=== PATIENT | male | born 1950 | race Caucasian/White ===

== ENCOUNTER 2019-07-15 14:58 | Inpatient (IN) | payer MEDICARE, MEDICAID, SELFPAY ==
[2019-07-15] VITALS (7 sets, daily range): BP systolic 103–175; BP diastolic 56–90; PULSE 46–53; RESP 16–20; TEMP 36.1–36.4; O2SAT 98–99; BMI 25.7
--- NOTE | 2019-07-15 15:02 | XR_ITS ---
WS: [id number] PORTABLE CHEST HISTORY: cough COMPARISON: 01/21/2019 Status post CABG. Hyperexpanded lungs from emphysema. No pneumonia. No pleural effusion or pneumothorax. Cardiac size: Mildly enlarged cardiac silhouette. Mediastinum/Aorta: Mild atherosclerosis aorta. No osseous abnormality seen. XR/XR chest 1V portable [id number] IMPRESSION: Prior CABG and emphysema. No pneumonia.
--- NOTE | 2019-07-15 15:02 | ECG_ITS ---
Measurements Intervals [place] Rate: 51 P: 57 VT: 270 QRS: 27 QRSD: 99 T: 25 QT: 504 QTc: 466 SINUS BRADYCARDIA WITH FIRST DEGREE AV BLOCK PROLONGED QT INTERVAL Compared to ECG 01/21/2019 06:23:43 First degree AV block now present Prolonged QT interval now present Sinus rhythm no longer present T-wave abnormality no longer present Electronically Signed On 07-15-2019 19:45:15 CDT by Mark Jade M.D. [email or web address]
[2019-07-15] MEDS: sodium chloride 0.9% 1,000 ML 100 ML IV ×2 (15:08→17:25)
[2019-07-15 15:13] LABS: Basophils # 0.1 10^3/uL (0.0-0.1); Basophils % 0.8 %; Eosinophils # 0.1 10^3/uL (0.0-0.8); Eosinophils % 0.9 %; Hematocrit 35.4 % (42.0-52.0); Hemoglobin 12.1 g/dL (11.7-16.6); Lymphocytes # 1.3 10^3/uL (0.8-4.8); Lymphocytes % 20.2 %; Mean Corpuscular HGB Conc 34.2 g/dL (30.0-36.0); Mean Corpuscular Hemoglobin 28.9 pg (28.0-34.0); Mean Corpuscular Volume 84.5 fL (80-94); Mean Platelet Volume 8.6 fL (7.4-10.4); Monocytes # 0.5 10^3/uL (0.2-0.9); Monocytes % 8.3 %; Neutrophils # 4.5 10^3/uL (1.8-7.7); Neutrophils % 68.6 %; Nucleated Red Blood Cells % 0 %; Platelet Count 211 10^3/cmm (130-400); Red Blood Count 4.19 10^6/uL (4.1-5.3); Red Cell Distribution Width 16.7 % (12.1-15.1); White Blood Count 6.5 10^3/uL (4.0-10.0)
[2019-07-15] MEDS: aspirin 325 mg Tablet PO (15:13)
--- NOTE | 2019-07-15 15:14 | W.ED.CHESTPA ---
HPI - Chest Pain General: Chief Complaint: Chest Pain Stated Complaint: CP Time Seen by Provider: 07/15/19 15:02 History of Present Illness: HPI narrative: Rudolph is a nice 68-year-old male who comes in complaining of chest pain. The patient is very hard of hearing and is not put much effort into answering questions and is deemed a poor historian. He states he had chest pain that began after midnight last night and it is unclear but it sounds as though it may have been constant throughout the night. At an unknown time it resolved and then recurred again at 2 PM. He states the pain is back across his shoulders. He denies any radiation or diaphoresis. He does feel short of breath with this. Patient was recently placed on antibiotics for chest congestion but he is uncertain if he has had a fever. Associated symptoms: Reports dyspnea; Deny abdominal pain, diaphoresis, fever(s), nausea, palpitations, syncope or vomiting Review of Systems General: Reports: other (negative unless marked) Const: Denies: fever, chills, body aches, fatigue, malaise or diaphoresis Eyes: Denies: change in vision or blurry vision ENMT: Denies: throat pain, painful swallowing, hoarseness, ear pain, ear discharge, Change in hearing or nasal discharge Card: Reports: chest pain; Denies: palpitations, irregular heart rhythm, syncope, pre-syncope, shortness of breath on exertion or shortness of breath when lying down Resp: Reports: shortness of breath; Denies: productive cough, non-productive cough, wheezing, coughing up blood or chest congestion GI: Denies: abdominal pain, nausea, vomiting, vomiting blood, coffee grounds in vomit, diarrhea, constipation, cramping, blood in stool or black tarry stool : Denies: flank pain, difficulty urinating, painful urination, urinary frequency, urinary urgency, decreased urine ouput, urinary incontinence or blood in urine Musc: Denies: neck pain, back pain, extremity pain, extremity swelling, joint pain, joint swelling, joint warmth or joint stiffness Skin/Breast: Denies: rash, skin tenderness or yellow skin Neuro: Denies: headache, numbness in extremities, weakness in extremities, changes in sensation, lack of coordination, difficulty walking, dizziness, vertigo or confusion Endo: Denies: excessive thirst, tired all the time, cold intolerance, excessive sweating, flushing or hot flashes Priyank/Lymph: Denies: easy bruising, easy bleeding, petechiae or enlarged lymph nodes All/Imm: Denies: hives, throat swelling, tongue swelling, facial swelling or acute wheezing PFSH ED PFSH: Medical History (Updated 07/15/19 @ 16:54 by Maty Bragg) Alcohol abuse ASHD (arteriosclerotic heart disease) Chronic hyponatremia CKD (chronic kidney disease) stage 3, GFR 30-59 ml/min COPD (chronic obstructive pulmonary disease) Essential hypertension GERD (gastroesophageal reflux disease) Hyperlipidemia Microcytic anemia Peripheral vascular disease Tobacco abuse Surgical History S/P CABG (coronary artery bypass graft) S/P cardiac catheterization S/P tonsillectomy Status post below knee amputation of right lower extremity Family History Mother Hypertension CAD (coronary artery disease) Social History Smoking and tobacco status: current every day smoker Physical Exam Const: COMMON NORMALS: no apparent distress, oriented x3, no limitations, healthy appearing and well nourished EXAM LIMITATIONS: no altered mental status GENERAL APPEARANCE: cooperative, well kempt and well developed ORIENTATION/CONSCIOUSNESS: Yes awake HENMT: COMMON NORMALS: normocephalic, head/scalp atraumatic, hearing grossly normal bilaterally, external ears normal, EAC's normal, external nose normal and moist oral mucous membranes HEAD & SCALP: normal to inspection, normocephalic and atraumatic FACE & SINUS: normal facial exam and face symmetric NOSE: external nose normal and nares normal EXTERNAL EAR: Yes external ears normal EXTERNAL AUDITORY CANAL: EAC's normal MOUTH: oral and palatal mucosa normal and tongue normal Eye: COMMON NORMALS: PERRL, EOMs intact bilaterally, conjunctivae normal and no scleral icterus GENERAL EYE: normal appearance of both eyes and normal light reflex CONJUNCTIVA: Yes conjunctivae normal SCLERA: sclerae normal CORNEA: Yes corneas normal PUPIL: Yes PERRL DIRECT OPHTHALMOSCOPY: Yes normal light reflex Neck/C-Spine: COMMON NORMALS: full ROM, no lymphadenopathy, supple, no meningeal signs and no JVD GENERAL: Yes normal visual inspection and Yes trachea midline CERVICAL SPINE: Yes cervical ROM normal Chest: COMMONS NORMALS: inspection of chest normal and palpation of chest normal Resp: COMMON NORMALS: normal respiratory effort, no retractions and no use of accessory muscles EFFORT & INSPECTION: Yes able to speak in complete sentences AUSCULTATION: rales Cardio: COMMON NORMALS: no JVD, regular rhythm, S1 normal heart sound, S2 normal heart sound, no gallops, no clicks, no murmurs and no rub JUGULAR VENOUS DISTENTION: no JVD RATE: bradycardic RHYTHM: regular rhythm HEART SOUNDS: S1 normal and S2 normal GI: COMMON NORMALS: soft to palpation, non-tender, no hepatosplenomegaly and no masses INSPECTION: Yes normal to inspection PALPATION: Yes soft and Yes no hepatosplenomegaly : COMMON NORMALS: Yes no CVA tenderness BLADDER/KIDNEY EXAM: Yes no CVA tenderness Back/Pelvis: COMMON NORMALS: no CVA tenderness, thoracic and lumbar spine normal to inspection, no thoracic nor lumbar tenderness and thoraco-lumbar ROM normal Extremity: COMMON NORMALS: normal to inspection, full ROM, normal capillary refill, no joint enlargement, no clubbing, cyanosis or edema and no calf tenderness Neuro: COMMON NORMALS: oriented x3, CN's II-XII intact bilaterally, moves all extremities, no focal motor deficits and no sensory deficits noted MENINGEAL SIGNS: Yes no meningeal signs Psych: COMMON NORMALS: mental status grossly normal, thought process normal, cooperative, affect normal, speech normal and activity/motor behavior normal APPEARANCE: Yes well kempt SPEECH: Yes normal speech THOUGHT PROCESS: normal thought process Skin: COMMON NORMALS: no rashes or lesions noted, skin turgor normal, no jaundice, no petechiae and no mottling GENERAL SKIN EXAM: no rashes or lesions noted and turgor normal Course Vital Signs: Vital signs: Vital Signs Temperature 97.6 F 07/15/19 15:00 Pulse Rate 48 L 07/15/19 16:11 Respiratory Rate 18 07/15/19 16:11 Blood Pressure 129/65 07/15/19 16:11 Pulse Oximetry 99 07/15/19 16:11 MDM - Chest Pain MDM Narrative: Medical decision making narrative: Patient is no longer having chest pain now but he is hyponatremic and still bradycardic. His blood pressure has been stable. The bradycardia could be caused by the combination of beta-erbekah and amiodarone. The patient does not look volume overloaded to a great extent so the hyponatremia will need to be worked up further. I have reviewed the case in full with Dr. Galvez and he agrees to come and admit the patient. Lab Data: Attestation: I reviewed the patient's lab results. Labs: Lab Results 07/15/19 07/15/19 07/15/19 Range/Units 15:04 15:04 15:04 WBC 6.5 (4.0-10.0) 10^3/ uL RBC 4.19 (4.1-5.3) 10^6/u L Hgb 12.1 (11.7-16.6) g/dL Hct 35.4 L (42.0-52.0) % MCV 84.5 (80-94) fL MCH 28.9 (28.0-34.0) pg MCHC 34.2 (30.0-36.0) g/dL RDW 16.7 H (12.1-15.1) % Plt Count 211 (130-400) 10^3/c mm MPV 8.6 (7.4-10.4) fL Neut % (Auto) 68.6 % Lymph % (Auto) 20.2 % [place] % (Auto) 8.3 % Eos % (Auto) 0.9 % Baso % (Auto) 0.8 % Neut # (Auto) 4.5 (1.8-7.7) 10^3/u L Lymph # (Auto) 1.3 (0.8-4.8) 10^3/u L [place] # (Auto) 0.5 (0.2-0.9) 10^3/u L Eos # (Auto) 0.1 (0.0-0.8) 10^3/u L Baso # (Auto) 0.1 (0.0-0.1) 10^3/u L Nucleated RBC % (a uto) 0 % Nucleated RBCs # 0.0 /100WBC Sodium 121 L (136-145) mmol/L Potassium 5.0 (3.5-5.1) mmol/L Chloride 88 L (98-107) mmol/L Carbon Dioxide 24 (22-29) mmol/L Anion Gap 14.0 (5-19) BUN 9 (8-23) mg/dL Creatinine 1.3 H (0.7-1.2) mg/dL GFR Calculation 55.2 L (90-130) mL/min Glucose 92 (65-115) mg/dL Calculated Osmolal ity 248 L (285-295) mOsm/k g Calcium 8.8 (8.5-10.5) mg/dL Magnesium 2.1 (1.7-2.3) mg/dL Total Bilirubin 0.5 (0.15-1.2) mg/dL AST 46 H (0-40) U/L ALT 38 (0-41) U/L Alkaline Phosphata se 125 (40-130) IU/L Troponin T Baselin e 49 H (0-15) ng/mL NT-Pro-B Natriuret Pep (0-125) pg/mL Total Protein 5.7 L (6.6-8.7) g/dL Albumin 3.3 L (3.5-5.2) g/dL Globulin 2.4 (1.3-4.6) g/dL TSH 1.86 (0.27-4.20) uIU/ mL Urine Color (Yellow) Urine Appearance (CLEAR) Urine pH (5-7) Ur Specific Gravit y (1.005-1.030) Urine Protein (Negative) Urine Glucose (UA) (Normal) Urine Ketones (Negative) Urine Blood (Negative) Urine Nitrate (Negative) Urine Bilirubin (NEGATIVE) Urine Urobilinogen (Negative) mg/dL Ur Leukocyte Ольга ase (Negative) Urine RBC (0-2) /hpf Urine WBC (0-5) /hpf Ur Squamous Epith Cells (0-5) Urine Bacteria (NONE) Urine Opiates Scre en (Negative) ng/mL Ur Phencyclidine S crn (Negative) ng/mL Ur Amphetamines Sc reen (Negative) ng/mL U Benzodiazepines Scrn (Negative) ng/mL Urine Cocaine Scre en (Negative) ng/mL U Marijuana (THC) Screen (Negative) ng/mL Ethyl Alcohol < 10 (0-10) mg/dL 07/15/19 07/15/19 07/15/19 Range/Units 15:04 15:08 15:08 WBC (4.0-10.0) 10^3/ uL RBC (4.1-5.3) 10^6/u L Hgb (11.7-16.6) g/dL Hct (42.0-52.0) % MCV (80-94) fL MCH (28.0-34.0) pg MCHC (30.0-36.0) g/dL RDW (12.1-15.1) % Plt Count (130-400) 10^3/c mm MPV (7.4-10.4) fL Neut % (Auto) % Lymph % (Auto) % [place] % (Auto) % Eos % (Auto) % Baso % (Auto) % Neut # (Auto) (1.8-7.7) 10^3/u L Lymph # (Auto) (0.8-4.8) 10^3/u L [place] # (Auto) (0.2-0.9) 10^3/u L Eos # (Auto) (0.0-0.8) 10^3/u L Baso # (Auto) (0.0-0.1) 10^3/u L Nucleated RBC % (a uto) % Nucleated RBCs # /100WBC Sodium (136-145) mmol/L Potassium (3.5-5.1) mmol/L Chloride (98-107) mmol/L Carbon Dioxide (22-29) mmol/L Anion Gap (5-19) BUN (8-23) mg/dL Creatinine (0.7-1.2) mg/dL GFR Calculation (90-130) mL/min Glucose (65-115) mg/dL Calculated Osmolal ity (285-295) mOsm/k g Calcium (8.5-10.5) mg/dL Magnesium (1.7-2.3) mg/dL Total Bilirubin (0.15-1.2) mg/dL AST (0-40) U/L ALT (0-41) U/L Alkaline Phosphata se (40-130) IU/L Troponin T Baselin e (0-15) ng/mL NT-Pro-B Natriuret Pep 1526 H (0-125) pg/mL Total Protein (6.6-8.7) g/dL Albumin (3.5-5.2) g/dL Globulin (1.3-4.6) g/dL TSH (0.27-4.20) uIU/ mL Urine Color Straw (Yellow) Urine Appearance Clear (CLEAR) Urine pH 7 (5-7) Ur Specific Gravit y 1.000 L (1.005-1.030) Urine Protein Neg (Negative) Urine Glucose (UA) Norm (Normal) Urine Ketones Negative (Negative) Urine Blood Neg (Negative) Urine Nitrate Negative (Negative) Urine Bilirubin Neg (NEGATIVE) Urine Urobilinogen Norm (Negative) mg/dL Ur Leukocyte Ольга ase Negative (Negative) Urine RBC None (0-2) /hpf Urine WBC None (0-5) /hpf Ur Squamous Epith Cells None (0-5) Urine Bacteria None (NONE) Urine Opiates Scre en Negative (Negative) ng/mL Ur Phencyclidine S crn Negative (Negative) ng/mL Ur Amphetamines Sc reen Negative (Negative) ng/mL U Benzodiazepines Scrn Negative (Negative) ng/mL Urine Cocaine Scre en Negative (Negative) ng/mL U Marijuana (THC) Screen Negative (Negative) ng/mL Ethyl Alcohol (0-10) mg/dL Imaging Data^: CXR: My impression: Cardiomegaly with possible mild pulmonary vascular congestion EKG Data^: EKG 1: Attestation: I personally reviewed and interpreted this EKG as follows: EKG interpretation date: 07/15/19 EKG interpretation time: 15:13 Interpretation: Normal sinus rhythm at 51 beats a minute, first-degree AV block, prolonged QTC, no acute ST or T wave changes. Discharge Plan Discharge Patient Disposition: Admitted As Inpatient Clinical Impression: Chest pain, Hyponatremia Condition: Stable Prescriptions: No Action metoprolol tartrate 25 mg tablet 12.5 mg PO BID RF: 0 amiodarone 200 mg tablet 200 mg PO BID RF: 0 amlodipine [Norvasc] 5 mg tablet 5 mg PO DAILY RF: 0 aspirin [Adult Low Dose Aspirin] 81 mg tablet,delayed release (DR/EC) 81 mg PO DAILY RF: 0 atorvastatin 10 mg tablet 10 mg PO DAILY RF: 0 carvedilol 6.25 mg tablet 6.25 mg PO BID RF: 0 clopidogrel 75 mg tablet 75 mg PO DAILY RF: 0 isosorbide mononitrate 60 mg tablet extended release 24 hr 60 mg PO QAM RF: 0 furosemide 40 mg tablet 40 mg PO DAILY RF: 0 losartan 100 mg tablet 100 mg PO DAILY RF: 0 nitroglycerin [Nitrostat] 0.4 mg tablet, sublingual 0.4 mg SUBLINGUAL Q5M PRN (Reason: Chest Pain) RF: 0 pantoprazole 40 mg tablet,delayed release (DR/EC) 40 mg PO DAILY RF: 0 potassium chloride [Klor-Con 10] 10 mEq tablet extended release 10 meq PO DAILY RF: 0 valsartan 80 mg tablet 80 mg PO DAILY RF: 0 ferrous sulfate 325 mg (65 mg iron) tablet 325 mg PO DAILY RF: 0 loratadine 10 mg tablet 10 mg PO DAILY RF: 0 magnesium oxide 420 mg tablet 420 mg PO DAILY RF: 0 prednisone 20 mg tablet 20 mg PO DAILY RF: 0 Referrals: Jv Ruiz [Primary Care Provider] - Coding Level of Care Code ED Client Manager Large Law for Chg Fwd Exam Comprehensive
[2019-07-15 15:26] LABS: Bilirubin Urine Neg (NEGATIVE); Blood Urine Neg (Negative); Glucose Urine UA Norm (Normal); Ketones Urine Negative (Negative); Leukocyte Esterase Urine Negative (Negative); Nitrate Urine Negative (Negative); Protein Urine Neg (Negative); Urine Appearance Clear (CLEAR); Urine Color Straw (Yellow); Urobilinogen Urine Norm (Negative); pH Urine 7 (5-7)
[2019-07-15 15:27] LABS: Add Urine Culture? No
[2019-07-15 15:50] LABS: Troponin(5th) Baseline 49 ng/mL (0-15)
[2019-07-15 15:59] LABS: Alanine Aminotransferase 38 U/L (0-41); Albumin Level 3.3 g/dL (3.5-5.2); Alkaline Phosphatase 125 IU/L (40-130); Aspartate Amino Transferase 46 U/L (0-40); Blood Urea Nitrogen 9 mg/dL (8-23); Calcium 8.8 mg/dL (8.5-10.5); Carbon Dioxide 24 mmol/L (22-29); Chloride 88 mmol/L (98-107); Globulin 2.4 g/dL (1.3-4.6); Glomerular Filtration Rate 55.2 mL/min (90-130); Glucose 92 mg/dL (65-115); Magnesium 2.1 mg/dL (1.7-2.3); Osmolality Calculated 248 mOsm/kg (285-295); Sodium 121 mmol/L (136-145); Thyroid Stimulating Hormone 1.86 uIU/mL (0.27-4.20); Total Bilirubin 0.5 mg/dL (0.15-1.2); Total Protein 5.7 g/dL (6.6-8.7)
[2019-07-15 16:08] LABS: Alcohol Level < 10 mg/dL (0-10)
[2019-07-15 16:08] LABS: Amphetamines Screen Urine Negative (Negative); Benzodiazepines Screen Urine Negative (Negative); Cocaine Screen Urine Negative (Negative); Opiate Screen Urine Negative (Negative); PCP Screen Urine Negative (Negative); THC Screen Urine Negative (Negative)
[2019-07-15 16:30] LABS: NT Pro B Type Natriuretic Pept 1526 pg/mL (0-125)
[2019-07-15 17:05] LABS: Barbiturates Screen Urine Negative (Negative)
[2019-07-15 17:18] LABS: Troponin 5 2HR 41.57 ng/mL (0-15)
[2019-07-15 17:27] LABS: Troponin 5 2HR Delta -7.43 ABS# (0-10)
--- NOTE | 2019-07-15 17:31 | P.HP_ITS ---
Providers/Chief Complaint Admitting Physician: Colby Trujillo MD Primary Care Provider: Jv Ruiz Chief Complaint: CP History of Present Illness Rudolph Calhoun is a 68 year old male with a past medical history of CAD status post CABG x1, status post drug-eluting stent to left circumflex, history of atrial fibrillation on amiodarone and aspirin low-dose, peripheral vascular di sease, right BKA, left TMA, chronic smoker, COPD not oxygen dependent, hypertension, hyperlipidemia, GERD, diastolic heart failure, ethanol abuse, chronic hyponatremia baseline sodium is 129, CKD stage III who presents to the emergency room due to complaints of chest pain. Patient states that he lives home by himself, he has a nurse who checks up on him, denies recent fevers, cough, exposure to Covid 19. Patient states that last night he started develop severe substernal chest pain radiating down the left arm, associated shortness of breath, dull achy pain, lasting a few minutes, but returning, associated with exertion, no lightheadedness, no dizziness, patient states that he thought he was having a heart attack and the pain was like when he had a heart attack. Patient waited till the morning, stated that the pain became much more severe, much more frequent, constant, when his nurse bharath diamond and saw him this morning, she advised him to come to the emergency room. Ambulance was called, patient was found to have sinus bradycardia, heart rates in the 30s to 40s, was also found to be hypotensive systolic blood pressures in the 80s, received a total of 2 mg of atropine. In the emergency room, patient blood pressure was found to be 106/65, heart rates in the 40s, had complaints of chest pain, serum sodium was found to be 121, was found to have first-degree AV block on EKG, QT prolongation, baseline troponin 49, creatinine 1.3, BNP 1526, blood alcohol levels were negative, hospitalist team was called for admission for chest pain and bradycardia. Review of Systems Const: Denies: fever, chills, fatigue or malaise Eyes: Denies: change in vision or blurry vision ENMT: Denies: nasal congestion Card: Reports: chest pain, shortness of breath on exertion and shortness of breath when lying down; Denies: palpitations, irregular heart rhythm, edema or swelling of feet/ankles Resp: Denies: shortness of breath, productive cough, non-productive cough or wheezing GI: Denies: abdominal pain, nausea, vomiting, vomiting blood, diarrhea, constipation, blood in stool or black tarry stool : Denies: flank pain, difficulty urinating, painful urination or urinary frequency Musc: Denies: neck pain or back pain Skin/Breast: Denies: rash Neuro: Denies: headache, dizziness or vertigo Psych: Denies: anxiety or depression Endo: Denies: excessive urination or excessive thirst Medications/Allergies Home Medications Medication Instructions Recorded Confirmed Last Taken Type amiodarone 200 mg tablet 200 mg PO BID 03/27/19 07/15/19 Unknown History amlodipine 5 mg tablet 5 mg PO DAILY 03/27/19 07/15/19 Unknown History aspirin 81 mg tablet,delayed 81 mg PO DAILY 03/27/19 07/15/19 Unknown History release atorvastatin 10 mg tablet 10 mg PO DAILY 03/27/19 07/15/19 Unknown History carvedilol 6.25 mg tablet 6.25 mg PO BID 03/27/19 07/15/19 Unknown History clopidogrel 75 mg tablet 75 mg PO DAILY 03/27/19 07/15/19 Unknown History ferrous sulfate 325 mg (65 mg 325 mg PO DAILY 03/27/19 07/15/19 Unknown History iron) tablet furosemide 40 mg tablet 40 mg PO DAILY 03/27/19 07/15/19 Unknown History isosorbide mononitrate 60 mg 60 mg PO QAM 03/27/19 07/15/19 Unknown History tablet,extended release 24 hr loratadine 10 mg tablet 10 mg PO DAILY 03/27/19 07/15/19 Unknown History losartan 100 mg tablet 100 mg PO DAILY 03/27/19 07/15/19 Unknown History magnesium oxide 420 mg tablet 420 mg PO DAILY 03/27/19 07/15/19 Unknown History metoprolol tartrate 25 mg tablet 12.5 mg PO BID 03/27/19 07/15/19 Unknown History nitroglycerin 0.4 mg sublingual 0.4 mg SUBLINGUAL Q5M PRN 03/27/19 07/15/19 Unknown History tablet pantoprazole 40 mg tablet,delayed 40 mg PO DAILY 03/27/19 07/15/19 Unknown History release potassium chloride 10 mEq 10 meq PO DAILY 03/27/19 07/15/19 Unknown History tablet,extended release prednisone 20 mg tablet 20 mg PO DAILY 03/27/19 07/15/19 Unknown History valsartan 80 mg tablet 80 mg PO DAILY 03/27/19 07/15/19 Unknown History Allergies Allergy/AdvReac Type Severity Reaction Status Date / Time ciprofloxacin [From Cipro] Allergy Unknown Unknown Unverified 07/15/19 15:07 cortisone Allergy Unknown Unknown Unverified 07/15/19 15:07 hydrochlorothiazide Allergy Unknown Unknown Unverified 07/15/19 15:07 lisinopril Allergy Unknown Unknown Unverified 07/15/19 15:07 Sulfa (Sulfonamide Allergy Unknown Unknown Unverified 07/15/19 15:07 Antibiotics) PFSH Acute PFSH: Medical History (Updated 07/15/19 @ 17:51 by Colby Trujillo MD) Alcohol abuse ASHD (arteriosclerotic heart disease) Chronic hyponatremia CKD (chronic kidney disease) stage 3, GFR 30-59 ml/min COPD (chronic obstructive pulmonary disease) Essential hypertension GERD (gastroesophageal reflux disease) Hyperlipidemia Microcytic anemia Peripheral vascular disease Tobacco abuse Surgical History S/P CABG (coronary artery bypass graft) S/P cardiac catheterization S/P tonsillectomy Status post below knee amputation of right lower extremity Family History Mother Hypertension CAD (coronary artery disease) Social History Smoking and tobacco status: current every day smoker Vitals/I&O/Wt Last Vital Signs Temp 97.6 F 07/15/19 15:00 Pulse 48 L 07/15/19 16:11 Resp 18 07/15/19 16:11 BP 129/65 07/15/19 16:11 Pulse Ox 99 07/15/19 16:11 07/15/19 07/15/19 07/15/19 06:59 14:59 22:59 Intake Total 220 / 220 Balance 220 / 220 Weight last 48 hrs Weight 90.718 kg Physical Exam Const: COMMON NORMALS: no apparent distress and oriented x3 GENERAL APPEARANCE: cooperative and comfortable HENMT: COMMON NORMALS: normocephalic HEAD & SCALP: normocephalic Eye: COMMON NORMALS: PERRL, EOMs intact bilaterally and no papilledema GENERAL EYE: normal appearance of both eyes PUPIL: Yes PERRL DIRECT OPHTHALMOSCOPY: Yes no papilledema Neck/C-Spine: COMMON NORMALS: full ROM, no lymphadenopathy, no JVD and thyroid normal THYROID: thyroid normal Lymph: LYMPHATIC: no lymphadenopathy noted Resp: COMMON NORMALS: normal respiratory effort, no retractions, no use of accessory muscles and clear to auscultation bilaterally AUSCULTATION: clear to auscultation bilaterally Cardio: COMMON NORMALS: no JVD, regular rate, regular rhythm, S1 normal heart sound, S2 normal heart sound, no gallops, no clicks and no murmurs RATE: bradycardic RHYTHM: regular rhythm HEART SOUNDS: S1 normal and S2 normal GI: COMMON NORMALS: normal to inspection, nondistended, normoactive bowel jose nds, soft to palpation, non-tender and no hepatosplenomegaly PALPATION: Yes soft and Yes no hepatosplenomegaly Extremity: COMMON NORMALS: normal to inspection, full ROM and no pedal edema Neuro: COMMON NORMALS: oriented x3, CN's II-XII intact bilaterally, moves all extremities and no focal motor deficits Psych: COMMON NORMALS: mental status grossly normal, thought process normal and cooperative THOUGHT PROCESS: normal thought process Data : 07/15/19 15:04 07/15/19 15:04 A&P Assessment and plan (1) NSTEMI (non-ST elevated myocardial infarction): -Chest pain sounds cardiac in nature -Has significant factor risk factors smoking, CAD, hypertension, hyperlipidemia -Has three-vessel bypass JIMENEZ graft for three-vessel CAD in 2015, found patent on cardiac catheterization 07/18/2015 -Cardiac catheterization 07/18/2015 showed occlusion of the first obtuse marginal branch which was bypassed, occlusion of the iroquois right and an LAD, left internal mammary artery to the LAD is patent, the vein graft to the right coronary artery is patent, there is thrombotic occlusion of the vein graft to the circumflex, attempts at thrombectomy angioplasty were unsuccessful, thus mid iroquois circumflex was stented to protect the second obtuse marginal branch, the first obtuse marginal branch is occluded, wall motion and disturbance in the distribution of the obtuse marginal branch was hypokinesis of the inferior wall, ejection fraction 50 to 55% -Patient had a cardiac stress test on 01/22/2017, myocardial perfusion imaging revealed small areas of persistent decreased tracer uptake in the basal inferior lateral and apical inferior wall regions, suggesting myocardial scarring versus attenuation artifact, left ventricular wall motion analysis revealed wall motion abnormalities, mild hypokinesis the left ventricle apex, moderate hypokinesis of the septum -Patient's baseline reported 49, EKG has no acute ST-T wave changes -Patient currently is chest pain-free Plan: -Admit to cardiac IMC -Cardiology has been consulted -Aspirin, Plavix, therapeutic Lovenox -Beta-rebekah on hold given bradycardia -Trend troponins, trend EKGs -N.p.o. midnight -Cardiac echocardiogram ordered -Decision on cardiac cath versus stress test based on echocardiogram findings Status: Acute (2) Bradycardia: -Review of patient's medical records showed that he has a history of bradycardia, heart rates in low 50s -Patient has never been this low -Received a total of 2 mg of atropine in route to the hospital, was found to be hypotensive -Patient had admission on 03/24/2017 for symptomatic bradycardia heart rates as low as the 20s, he did have a transvenous temporary pacemaker placed at one point, was discharged on instructions on no AV jamin blocking agents, and Holter monitor Plan: -Hold all AV jamin blocking agents -Telemetry monitoring -Atropine as needed -Monitor for symptoms -Cardiology on consult Status: Acute (3) Atrial fibrillation: -Patient has a history of atrial fibrillation -On amiodarone -Patient is on baby aspirin, I am not sure why patient is not on anticoagulation Status: Acute (4) Chronic hyponatremia: -Patient has a history of chronic hyponatremia -Baseline sodium seems to be around 125-129 -Patient has run low as 119 -Etiology of beers hypo-Poto cristel, secondary to alcohol use, plus possibly also amiodarone playing a role -Patient has had multiple admissions over the past 2 years for acute on chronic hyponatremia Plan: -Monitor serum sodiums -Neurochecks, seizure precautions -Creatinine is 1.3, and as hypotensive, so possibly some component of dehydration Status: Acute (5) COPD (chronic obstructive pulmonary disease): Not in exacerbation Status: Acute (6) Peripheral vascular disease: Status: Acute (7) CKD (chronic kidney disease) stage 3, GFR 30-59 ml/min: Creatinine 1.3 Status: Acute (8) Alcohol abuse: -[facility] protocol Status: Acute Additional A&P Information Therapeutic Lovenox for DVT prophylaxis Patient states that he is okay with chest compressions, okay with drugs per ACLS, does not want to be intubated, does not want mechanical ventilation, as he saw his friend on the ventilator Attestations Medical Necessity Statement*: Patient requires hospitalization, inpatient, greater than 2 midnights, for chest pain, hyponatremia, bradycardia Coding Level of Care Code Acute [employer] for [facility] Fw Diagnoses NSTEMI (non-ST elevated myocardial infarction) I21.4 Bradycardia R00.1 Atrial fibrillation I48.91 Chronic hyponatremia E87.1 COPD (chronic obstructive pulmonary disease) J44.9 Peripheral vascular disease I73.9 CKD (chronic kidney disease) stage 3, GFR 30-59 ml/min N18.3 Alcohol abuse F10.10
[2019-07-15] MEDS: enoxaparin 100 mg/mL Syringe 90 MG SUBCUT (18:41)
[2019-07-15 19:12] LABS: Estmated Average Glucose 100; Hemoglobin A1C 5.1 % (4.0-6.0)
[2019-07-15] MEDS: HYDROcodone-acetaminophen 5-325 mg Tablet 1 TAB PO (19:27)
[2019-07-15] MEDS: LORazepam 2 mg Tablet PO (19:28)
--- NOTE | 2019-07-15 20:14 | P.CONIM_ITS ---
Providers/Reason For Consult Consulting Physican/Specialty*: Catrachita Real MD/cardiology Reason for Consult*: Patient with chest pain, bradycardia and history of coronary artery disease. Attending Physician: Colby Trujillo MD Primary Care Provider: Jv Ruiz History of Present Illness History of Present Illness Rudolph Calhoun is a 68 year old male, extremely poor historian and very hard of hearing, is brought by the ambulance to the hospital emergency room with complaints of chest pain and hypotension. He is admitted to hospital for further evaluation and management. He also was found to be bradycardic with a heart rate in the 30s?. Cardiology consult is requested for further cardiac evaluation recommendations. Patient is known to have multiple medical problems. He is known to have coronary artery disease, status post three-vessel coronary bypass surgery in April 2015, status post PCI of the circumflex artery in July 2015, thrombotic occlusion of the venous graft to circumflex artery. He is known to have chronic intermittent atrial fibrillation, recurrent heart failure, hypertension, dyslipidemia, chronic kidney disease, osteomyelitis, upper extremity venous thrombosis, COPD, recurrent lateral imbalance and multiple other medical problems. He has a history of chest pain off and on for the last few years. Last night, he had 2 episodes of chest pain, each lasting for 5 minutes or so and then subsided spontaneously. This morning, he had an episode of chest pain. He was found to have the systolic blood pressure in the 80s. His home health nurse visited this morning and checked his blood pressure again. His pressure was still running in the 80s. He was complaining of some chest discomfort as well. For these reasons, he was brought to the hospital. Patient chest pain is to moderate. It is left-sided. He has some baseline shortness of breath. No associated nausea vomiting sweating or syncopal episode. No radiation of pain. No other specific complaints at this time. He has a chronic generalized weakness and pain at the amputation stump. Patient has a history of bradycardia requiring a temporary pacemaker insertion few years ago. He apparently had some bradycardic episodes in the emergency room but there is no documentation by rhythm strip or EKG. He had a three-vessel coronary bypass surgery in April 2015. He had a JIMENEZ to the LAD, venous graft to the RCA and another venous graft to the obtuse marginal artery. In July 2015, he presented with chest pain. He was found to have occluded venous graft to circumflex complex artery with a patent graft to the RCA and to the LAD. He underwent angioplasty and stenting of the [place] circumflex artery by Dr. Goodwin. Attempts to open up the occluded venous graft was unsuccessful. Review of Systems Narrative: CONSTITUTIONAL: No fever or chills. Feeling of generalized weakness EYES: No blurring of vision or other visual disturbances lately. ENT: No hoarseness of voice, auditory disturbances or sore throat. CARDIOVASCULAR: As mentioned above. RESPIRATORY: Has shortness of breath with activities GASTROINTESTINAL: No hematemesis or melena. GENITOURINARY: No dysuria or hematuria. INTEGUMENTARY: No skin rashes or history of skin cancer. NEURO: Patient seems to have some cognitive dysfunction. PSYCHIATRIC: No history of psychosis or major depression. HEMATOLOGIC: Chronic anemia. ENDOCRINE: No history of polyuria or polydipsia. MUSCULOSKELETAL: Below-knee amputation on the right side and a transmetatarsal amputation on the left side for osteomyelitis ALLERGY/IMMUNOLOGY: As mentioned above. Meds/Allergies Home Medications and Allergies Home Medications Medication Instructions Recorded Confirmed Last Taken Type ferrous sulfate 325 mg (65 mg 325 mg PO DAILY 03/27/19 07/25/19 Unknown History iron) tablet magnesium oxide 420 mg tablet 420 mg PO DAILY 03/27/19 07/25/19 Unknown History nitroglycerin 0.4 mg sublingual 0.4 mg SUBLINGUAL Q5M PRN 03/27/19 07/25/19 Unknown History tablet aspirin [Adult Low Dose Aspirin] 81 mg PO DAILY 30 Days #30 tab 07/18/19 07/25/19 Unknown Rx folic acid 1 mg PO DAILY 30 Days #30 tab 07/18/19 07/25/19 Unknown Rx furosemide 40 mg PO DAILY 30 Days #30 tab 07/18/19 07/25/19 Unknown Rx multivitamin with folic acid 1 tab PO DAILY 30 Days #30 tab 07/18/19 07/25/19 Unknown Rx [Thera] pantoprazole 40 mg PO DAILY 30 Days #30 tab 07/18/19 07/25/19 Unknown Rx thiamine mononitrate (vit B1) 100 mg PO DAILY 30 Days #30 tab 07/18/19 07/25/19 Unknown Rx [Vitamin B-1 (mononitrate)] amiodarone 200 mg tablet 200 mg PO DAILY 90 Days #90 tab 07/25/19 07/25/19 Unknown Rx amlodipine 5 mg tablet 5 mg PO DAILY 90 Days #90 tab 07/25/19 07/25/19 Unknown Rx atorvastatin 40 mg tablet 40 mg PO DAILY 90 Days #90 tab 07/25/19 07/25/19 Unknown Rx carvedilol 3.125 mg tablet 3.125 mg PO BID 90 Days #180 tab 07/25/19 07/25/19 Unknown Rx isosorbide mononitrate 60 mg 60 mg PO QAM 90 Days #90 tab 07/25/19 07/25/19 Unknown Rx tablet,extended release 24 hr losartan 100 mg tablet 100 mg PO DAILY 90 Days #90 tab 07/25/19 07/25/19 Unknown Rx potassium chloride 10 mEq 10 meq PO DAILY #90 tab 07/25/19 07/25/19 Unknown Rx tablet,extended release Allergies Allergy/AdvReac Type Severity Reaction Status Date / Time ciprofloxacin [From Cipro] Allergy Unknown Unknown Verified 07/15/19 18:10 cortisone Allergy Unknown Unknown Verified 07/15/19 18:10 hydrochlorothiazide Allergy Unknown Unknown Verified 07/15/19 18:10 lisinopril Allergy Unknown Unknown Verified 07/15/19 18:10 Sulfa (Sulfonamide Allergy Unknown Unknown Verified 07/15/19 18:10 Antibiotics) Current Medications Current Medications Generic Name Dose Route Start Last Admin Trade Name Freq PRN Reason Stop Dose Admin Hydrocodone Bitart/Acetaminophen 1 tab 07/15/19 18:41 07/15/19 19:27 [place] 5-325 Mg PO 1 tab Q12H PRN Administration MODERATE PAIN Enoxaparin Sodium 90 mg 07/15/19 18:30 07/15/19 18:41 Lovenox 1 mg/kg (90 mg) 90 mg SUBCUT Administration Q12H CLARK Sodium Chloride 1,000 mls @ 100 mls/hr 07/15/19 15:15 07/15/19 18:31 Sodium Chloride 0.9% IV 100 mls/hr .Q10H CLARK Infusion Lorazepam 2 mg 07/15/19 18:05 07/15/19 19:28 Ativan PO 2 mg PROTOCOL PRN Administration WITHDRAWAL Protocol PFSH Acute PFSH: Medical History (Updated 07/25/19 @ 09:00 by MINA Peoples) Alcohol abuse ASHD (arteriosclerotic heart disease) Atherosclerotic heart disease of [place] coronary artery with other forms of angina pectoris Benign essential hypertension with target blood pressure below 140/90 Chronic episodic atrial fibrillation Chronic hyponatremia CKD (chronic kidney disease) stage 3, GFR 30-59 ml/min Congestive heart failure COPD (chronic obstructive pulmonary disease) GERD (gastroesophageal reflux disease) Hyperlipidemia Microcytic anemia Peripheral vascular disease Tobacco abuse Surgical History S/P CABG (coronary artery bypass graft) S/P cardiac catheterization S/P tonsillectomy Status post below knee amputation of right lower extremity Family History Mother Hypertension CAD (coronary artery disease) Social History (Updated 07/25/19 @ 08:22 by Zo Amato RN) Smoking and tobacco status: current every day smoker cigarettes Packs smoked per day: 2 Alcohol intake: current Alcohol intake frequency: 3 or more drinks per day Alcohol type: beer Desire information about alcohol rehabilitation?: No Vitals/I&O/Wt Last Vital Signs Temp 96.9 F L 07/15/19 18:05 Pulse 49 L 07/15/19 18:05 Resp 18 07/15/19 18:05 BP 175/85 07/15/19 18:05 Pulse Ox 98 07/15/19 18:05 07/15/19 07/15/19 07/15/19 06:59 14:59 22:59 Intake Total 220 / 220 Output Total 100 / 100 Balance 120 / 120 Weight last 48 hrs Weight 200 lb Physical Exam Narrative: EXAM NARRATIVE: GENERAL: The patient is alert and oriented times three. Not in any acute distress. HEENT: Moderate pallor, no icterus or lymphadenopathy. The pupils are reactant to light. Oral cavity: There are no mucous membrane lesions. Funduscopic examination: The fundus is not visualized NECK: Trachea appears to be central. No masses noted. No JVD or thyromegaly appreciated. No carotid bruit. RESPIRATORY: Chest is symmetrical. No intercostals muscle retraction or any accessory muscle activation. There is no chest wall tenderness. Breath sounds are heard bilaterally. No rales or rhonchi heard. No evidence of any consolidation. The breath sounds are diminished in the bases BREASTS: Deferred. HEART: The heart sounds are normal. No S3. Short systolic murmur in the left sternal border. No diastolic murmurs. No pericardial rub. ABDOMEN: No vessel pulsations or distention. No tenderness. No organomegaly appreciated. No abdominal bruit. Bowel sounds are normally heard. : Deferred. RECTAL: Deferred. LYMPHATIC: No lymphadenopathy noted in the neck . EXTREMITIES: Below-knee amputation on the right side and transmetatarsal amputation on the left side. MUSCULOSKELETAL: No acute joint deformities or swelling SKIN: There are no significant scars or skin rash noted. NEUROPSYCHIATRIC: The patient is alert and oriented x2. Chronically ill looking. No obvious motor deficits. Data Imaging^: Echo: My impression: Echocardiogram in March 2018 Revealed\Normal LV size with a slightly diminished ejection fraction of 50-55%. Mild diffuse hypokinesia of the septum, gabriella septum and apical inferior wall segments. Grade III/IV diastolic dysfunction (restrictive filling pattern), severely elevated filling pressures. Mild left ventricular hypertrophy. Mildly increased left atrial size. Thickened mitral valve. Mild mitral valve regurgitation. Trace to mild tricuspid valve regurgitation. Moderate pulmonary hypertension with estimated pulmonary artery peak systolic pressure of 57 mmHg. Compared to the previous study from 01/19/2018, there may not be a significant change Cardiac catheterization: My impression: The cardiac authorization done on 07/18/2015 revealed LMCA: Normal. LAD: Chronic occlusion.The vessel is occluded in its midportion. There is a small diagonal which emanates from the area just proximal to the occlusion vessel is moderately to severely diffusely diseased along its entire course. Distal flow is via the internal mammary artery. LCx: Multiple stenosis and Chronic occlusion.First obtuse marginal branch is occluded. This is the vessel that was bypassed. There is a 90% elongated stenosis in the mid circumflex. There is a 50% stenosis more distally which him includes the second marginal branch. There is a much smaller marginal branch more proximally just past the beginning of the artery and she is normal. Lesion on Mid CX: Mid subsection.90% stenosis reduced to 0%. Pre procedure GAVINO III flow was noted. Post Procedure GAVINO III flow was present. The guidewire cross was successful.Good runoff was present.The lesion was diagnosed as a low risk lesion.The lesion was diffuse and eccentric.The lesion showed with irregular contour, mild angulation and mild tortuosity. Treatment results:Interventional treatment was successful. EKG^: EKG 1: My Interpretation: The EKG showed a sinus bradycardia with some nonspecific ST changes, heart rate of 51 bpm. Possible old inferior wall myocardial infarction. Minimally elevated QTC of 466. First-degree AV block. A&P Assessment and plan (1) Chest pain: The etiology of the chest pain is not clear at this time. The troponin T is slightly elevated with a negative delta. Possibility of him having had a myocardial event last night will be scheduled. Currently he is pain-free. The reliability of his history is somewhat questionable. Hemodynamically he seems to be stable. His blood pressures been elevated. Status: Acute Qualifiers: Chest pain type: unspecified Qualified Code(s): R07.9 - Chest pain, unspecified (2) Bradycardia: Patient has sinus bradycardia. However the heart rate is in the 50s. No documented symptomatic bradycardia at this time. He may be continued on the amiodarone. Carvedilol may be held at this point. Status: Acute (3) Chronic episodic atrial fibrillation: Patient is in sinus rhythm at this time. He is on antiarrhythmic drugs. May continue on the current medications. He may be kept on amiodarone. I may hold off on the carvedilol. Status: Acute (4) Benign essential hypertension with target blood pressure below 140/90: Patient's blood pressure is a stage II. The antihypertensive medications need to be optimized. Status: Acute (5) Atherosclerotic heart disease of [place] coronary artery with other forms of angina pectoris: For further evaluation of the chest pain, a myocardial perfusion imaging would be appropriate. We may consider doing this tomorrow. Status: Acute Additional A&P Information After reviewing the above and also based on the patient clinical progress, further recommendations will be made. Thank you for the opportunity to follow this patient make these recommendations. Coding Level of Care Code Acute Records Clerk for [facility] Fwd Diagnoses Chest pain R07.9 Chest pain type: unspecified Bradycardia R00.1 Chronic episodic atrial fibrillation I48.20 Benign essential hypertension with target blood pressure below 140/90 I10 Atherosclerotic heart disease of [place] coronary artery with other forms of angina pectoris I25.118
[2019-07-15 20:30] LABS: Sodium 121 mmol/L (136-145); Thyroid Stimulating Hormone 1.95 uIU/mL (0.27-4.20)
[2019-07-15 20:33] LABS: Lactic Sepsis W/Reflex 0.9 mmol/L (0.5-2.2)
--- NOTE | 2019-07-15 21:02 | ECG_ITS ---
Measurements Intervals [place] Rate: 46 P: 58 IL: 277 QRS: 63 QRSD: 114 T: 49 QT: 534 QTc: 470 SINUS BRADYCARDIA WITH FIRST DEGREE AV BLOCK MODERATE INTRAVENTRICULAR CONDUCTION DELAY [105+ ms QRS DURATION, 80+ ms Q/S IN V1/V2, NO Q AND 60+ ms R IN I/aVL/V5/V6] NONSPECIFIC T-WAVE ABNORMALITY PROLONGED QT INTERVAL Compared to ECG 07/15/2019 15:13:06 Intraventricular conduction delay now present T-wave abnormality now present Electronically Signed On 07-16-2019 20:34:32 CDT by Karmen Real M.D. [id number]
[2019-07-15 21:41] LABS: Troponin 5 6HR 40.97 ng/mL (0-15)
[2019-07-16] VITALS (9 sets, daily range): BP systolic 102–161; BP diastolic 57–78; PULSE 46–52; RESP 16–20; TEMP 36.4–37.2; O2SAT 96–98
[2019-07-16 01:05] LABS: Sodium 121 mmol/L (136-145)
[2019-07-16 05:57] LABS: Basophils # 0.1 10^3/uL (0.0-0.1); Basophils % 0.9 %; Eosinophils % 0.6 %; Hematocrit 32.8 % (42.0-52.0); Lymphocytes # 1.4 10^3/uL (0.8-4.8); Lymphocytes % 24.8 %; Mean Corpuscular HGB Conc 33.5 g/dL (30.0-36.0); Mean Corpuscular Hemoglobin 28.9 pg (28.0-34.0); Mean Corpuscular Volume 86.3 fL (80-94); Mean Platelet Volume 8.6 fL (7.4-10.4); Monocytes # 0.4 10^3/uL (0.2-0.9); Monocytes % 7.5 %; Neutrophils # 3.6 10^3/uL (1.8-7.7); Neutrophils % 65.5 %; Nucleated Red Blood Cells % 0 %; Platelet Count 185 10^3/cmm (130-400); White Blood Count 5.4 10^3/uL (4.0-10.0)
--- NOTE | 2019-07-16 06:00 | USCV_ITS ---
Rudolph Calhoun Age: 68 Gender: M : 1950 Exam Date: 07/16/2019 14:50 Ordering Phys: Colby Trujillo MD Technologist: Farhan Mckinney Exam Location: [facility] – [place] Indication: CHEST PAIN, BRADYCARDIA BP: 102 / 57 HR: 92 Rhythm: Sinus Technical Quality: MEASUREMENTS (Male / Female) Normal Values 2D ECHO LV Ejection Fraction MOD 2C 63.8 % LV Ejection Fraction 2C AL 62.1 % LA Width 3.6 cm LA Height 4.3 cm RA Width 3.5 cm RA Height 5.2 cm DOPPLER AV Peak Velocity 140.0 cm/s LVOT Peak Velocity 92.0 cm/s MV Area PHT 5.0 cm squared Mitral E to A Ratio 1.4 MV E' Velocity 13.0 cm/s Mitral E to MV E' Ratio 10.1 Mitral E to LV E' Lateral Ratio 6.6 Mitral E to LV E' Septal Ratio 21.9 TR Peak Velocity 123.0 cm/s TR Peak Gradient 6.0 mmHg TV Peak E Velocity 113.0 cm/s Right Atrial Pressure 3.0 mmHg Pulmonary Artery Systolic Pressu 9.1 mmHg FINDINGS Left Ventricle This echo was exceedingly poor in quality and is for all intents and purposes uninterpretable. The ventricle is seen minimally in the apical view. There is hypokinesis but wall motion disturbances and diastolic function cannot be determined. The ejection fraction cannot be accurately assessed. Right Ventricle Right ventricle not well visualized. Right Atrium Right atrium not well visualized. Left Atrium Left atrium not well visualized. Mitral Valve Mitral valve not well visualized. Aortic Valve Aortic valve not well visualized. Tricuspid Valve Tricuspid valve not well visualized. Pulmonic Valve Pulmonic valve not well visualized. Pericardium Normal pericardium without effusion. Aorta Aorta not well visualized. CONCLUSIONS This echo was exceedingly poor in quality and is for all intents and purposes uninterpretable. The ventricle is seen minimally in the apical view. There is hypokinesis but wall motion disturbances and diastolic function cannot be determined. The ejection fraction cannot be accurately assessed. There is probably no change from the previous echo dictated 07/06/2018 Dr. Tenzin Lopez MD (Electronically Signed) Final Date: 16 Jul 2019 16:24 S
[2019-07-16 06:42] LABS: Alanine Aminotransferase 29 U/L (0-41); Albumin Level 2.7 g/dL (3.5-5.2); Alkaline Phosphatase 107 IU/L (40-130); Aspartate Amino Transferase 31 U/L (0-40); Blood Urea Nitrogen 10 mg/dL (8-23); Calcium 8.3 mg/dL (8.5-10.5); Carbon Dioxide 21 mmol/L (22-29); Chloride 94 mmol/L (98-107); Globulin 2.6 g/dL (1.3-4.6); Glomerular Filtration Rate 55.2 mL/min (90-130); Glucose 95 mg/dL (65-115); Magnesium 2.1 mg/dL (1.7-2.3); Osmolality Calculated 250 mOsm/kg (285-295); Phosphorus 3.4 mg/dL (2.5-4.5); Sodium 122 mmol/L (136-145); Total Bilirubin 0.4 mg/dL (0.15-1.2); Total Protein 5.3 g/dL (6.6-8.7)
[2019-07-16] MEDS: HYDROcodone-acetaminophen 5-325 mg Tablet 1 TAB PO (06:50)
[2019-07-16] MEDS: enoxaparin 100 mg/mL Syringe 90 MG SUBCUT ×2 (06:51→17:40)
[2019-07-16] MEDS: isosorbide mononitrate ER 60 mg Tablet PO (06:51)
--- NOTE | 2019-07-16 08:55 | PM.PN ---
Subjective Subjective: Interval history: I know Rudolph from multiple interactions in the past. He has a long list of cardiac and medical problems which are delineated in the notes. He came into the hospital after a home health nurse called 911 because his blood pressure was in the 80s and he was bradycardic. He has a history of sinus bradycardia. At one point in the past a temporary pacemaker was placed when he was otherwise ill but there has never been an indication for a permanent pacemaker. Rudolph is an exceedingly poor historian and also is hard of hearing. He apparently had some chest discomfort along with the hypotension and bradycardia which prompted the home health nurse to call the ambulance. He has a chronic cough and is chronically short of breath. He is very sedentary because of a right below the knee amputation. He does have a prosthetic device however. He complains of weakness, pain between his shoulder blades. He had been having some chest pain for at least 12 hours prior to being brought in. He is heart rate was in the 30s and 40s when he was brought in and was actually given some atropine in the ambulance which of course did not increase his heart rate. This morning he is not having any chest discomfort but states that he is weak and short of breath. His first 2 troponins were basically equal 41 and 42 without a delta. His BNP is 1526. His EKG shows sinus bradycardia with a first-degree AV block and mild prolongation of the QT interval and nonspecific ST changes. There is an interventricular conduction delay. He is chronically hyponatremic. He also has chronic kidney disease and his glomerular filtration rate is 55 mL/min. His last coronary angiogram was in 2015 when he presented with a non-ST segment elevation NV. At that time his [place] coronary arteries were closed. He has a left internal mammary artery to the LAD which was open and a vein graft to the right coronary artery which was open. The acute event was a closure of a saphenous vein graft to the circumflex which I was unable to open. In lieu of that I stented his [place] circumflex. At that time his ejection fraction was about 55%. Medications: Reviewed: Yes Vitals/I&O/Wt Last Vital Signs Temp 98.4 F 07/16/19 08:00 Pulse 50 L 07/16/19 08:00 Resp 18 07/16/19 08:00 BP 161/78 07/16/19 08:00 Pulse Ox 97 07/16/19 08:00 07/15/19 07/16/19 07/16/19 22:59 06:59 14:59 Intake Total 220 / 220 Output Total 450 / 450 350 / 800 Balance -230 / -230 -350 / -580 Weight last 48 hrs Weight 200 lb Physical Exam Narrative: EXAM NARRATIVE: GENERAL: In general he is comfortable but complains of some discomfort between his shoulder blades. Hard of hearing HEENT: Exam within normal limits. NECK: Supple without jugular vein distention. The carotid upstroke is normal without bruits. BACK: Exam normal. LUNGS: Clear. HEART: Regular rate and rhythm. ABDOMEN: Benign without organomegaly or tenderness. EXTREMITIES: No edema. Right below the knee amputation. Left forefoot amputation. NEUROLOGIC: Exam normal. SKIN: Unremarkable. Data : 07/16/19 05:43 07/16/19 05:43 Other data: Both troponins are 41 and 42 without a delta. BNP 1526. Sodium 122. Glomerular filtration rate 55 mL/min. EKG shows sinus bradycardia with first-degree AV block, mild prolongation of the QT interval and an interventricular conduction delay with nonspecific ST changes. A&P Assessment and plan (1) Chronic episodic atrial fibrillation: Status: Acute (2) Benign essential hypertension with target blood pressure below 140/90: Status: Acute (3) Atherosclerotic heart disease of [place] coronary artery with other forms of angina pectoris: Status: Acute (4) Alcohol abuse: Status: Acute (5) Bradycardia: Status: Acute (6) Chest pain: Status: Acute Qualifiers: Chest pain type: unspecified Qualified Code(s): R07.9 - Chest pain, unspecified (7) Hyponatremia: Status: Acute (8) COPD (chronic obstructive pulmonary disease): Status: Acute (9) Chronic hyponatremia: Status: Acute (10) Microcytic anemia: Status: Acute (11) Peripheral vascular disease: Status: Acute (12) CKD (chronic kidney disease) stage 3, GFR 30-59 ml/min: Status: Acute (13) Hyperlipidemia: Status: Acute (14) Tobacco abuse: Status: Acute (15) S/P CABG (coronary artery bypass graft): Status: Acute Additional A&P Information I do not think that he has had a myocardial infarction. His troponins are negative and his EKG is basically unchanged. He certainly does not need angiography at this point. I am wondering if he really even needs stress testing. If he remains free of pain I would probably continue to treat him medically. I do not know that stress testing is going to help us. I would use angiography as a last resort given his underlying illnesses and chronic kidney disease. For now we will hold off on any testing and if he continues to have episodes of chest discomfort I would proceed first with a Jordian kamrantamibi. Attestations Medical Necessity Statement*: Not applicable Coding Level of Care Code Established Pt Acute Tube Dispatcher for Chg Fwd Patient Type Established History Comprehensive Exam Comprehensive Medical Decision Making High Complexity Diagnoses Chronic episodic atrial fibrillation I48.20 Benign essential hypertension with target blood pressure below 140/90 I10 Atherosclerotic heart disease of [place] coronary artery with other forms of angina pectoris I25.118 Alcohol abuse F10.10 Bradycardia R00.1 Chest pain R07.9 Chest pain type: unspecified Hyponatremia E87.1 COPD (chronic obstructive pulmonary disease) J44.9 Chronic hyponatremia E87.1 Microcytic anemia D50.9 Peripheral vascular disease I73.9 CKD (chronic kidney disease) stage 3, GFR 30-59 ml/min N18.3 Hyperlipidemia E78.5 Tobacco abuse Z72.0 S/P CABG (coronary artery bypass graft) Z95.1
[2019-07-16] MEDS: folic acid 1 mg Tablet PO (08:59)
[2019-07-16] MEDS: aspirin 81 mg EC Tablet PO (08:59)
[2019-07-16] MEDS: ferrous sulfate EC 325 mg Tablet PO (08:59)
[2019-07-16] MEDS: thiamine 100 mg Tablet PO (08:59)
[2019-07-16] MEDS: atorvastatin 40 mg Tablet PO (08:59)
[2019-07-16] MEDS: amiodarone 200 mg Tablet PO ×2 (08:59→17:40)
[2019-07-16] MEDS: multivitamin therapeutic Tablet 1 TAB PO (09:00)
[2019-07-16] MEDS: FUROsemide 40 mg Tablet PO (09:00)
[2019-07-16] MEDS: losartan 50 mg Tablet 100 MG PO (09:00)
[2019-07-16] MEDS: pantoprazole DR 40 mg Tablet PO (09:00)
[2019-07-16] MEDS: amlodipine 5 mg Tablet PO (09:00)
[2019-07-16] MEDS: clopidogrel 75 mg Tablet PO (09:00)
[2019-07-16] MEDS: loratadine 10 mg Tablet PO (09:00)
--- NOTE | 2019-07-16 10:13 | PC.CHAP ---
Pastoral Care Encounter/Spiritual Assessment Type of Contact [] Declined automotive technology instructor visit [] Patient/Family/Request visit [] Outpatient visit [] Follow-up visit [] Physician referral [] Code/Alert [x] Routine visit [] Staff referral [] Actively dying [] Patient sleeping [] Family support [] [] Out of room [] Palliative care [] [] Receiving care in room [] Pre-surgical visit [] Trauma [] Long length of stay [] ICU visit [] Other: Relational/Emotional Strength [] Patient feels connected with others/family/visitors/staff [] Distress [] Loneliness/isolation [] Abandonment Spirituality of Patient [] Person of Lisa [] Attends Druze of their Lisa [] Believes in Prayer [] Reads Bible or Hinduism materials [] There are Spiritual issues to be addressed Kids Club Attendant Interventions [x] Prayer [] Active listening [] Non-anxious presence [] Spiritual/emotional support [] Crisis/trauma care [] Spiritual counseling [] Bereavement support [] Provided bereavement packet [] Provided Bible/devotional materials [] Provided toy/stuffed animal, coloring book to patient or family member [] Provided Communion [] Anointing/[place] [] Salvation [x] Completed spiritual assessment [] Other: Impact on Illness or Injury [] Angry [] Fearful [] Anxious [] Often cries [] Exhaustion [] Unable to work [] Unable to attend religious [] Unable to walk/stand [] Unable to read [] Unable to drive [] Unable to eat/drink [] Unable to sleep [] Unable to be with family [] Patient intubated [] Other: Summary Patinet doing much better. Time spent with patient 10 min
--- NOTE | 2019-07-16 11:47 | PC.RESP ---
Smoking Cessation and Pulmonary Rehab information to patient with a schedule of classes.
[2019-07-16 13:01] LABS: Sodium 124 mmol/L (136-145)
--- NOTE | 2019-07-16 13:46 | PM.PN ---
Subjective Subjective: Interval history: This morning patient stated that he had a couple of chest pain episodes overnight, lasted a few seconds, also complains of phantom limb pain in his lower extremity, denies shortness of breath, denies lightheadedness, denies dizziness, has episodes of confusion, states that his last drink was a sixpack yesterday morning Vitals/I&O/Wt Last Vital Signs Temp 98.4 F 07/16/19 08:00 Pulse 50 L 07/16/19 08:00 Resp 18 07/16/19 08:00 BP 161/78 07/16/19 09:00 Pulse Ox 97 07/16/19 08:00 07/15/19 07/16/19 07/16/19 22:59 06:59 14:59 Intake Total 220 / 220 Output Total 450 / 450 350 / 800 850 / 850 Balance -230 / -230 -350 / -580 -850 / -850 Weight last 48 hrs Weight 90.718 kg Physical Exam Const: COMMON NORMALS: no acute distress ORIENTATION/CONSCIOUSNESS: Yes awake, Yes oriented to person and Yes oriented to place; not oriented to time HENMT: COMMON NORMALS: normocephalic HEAD & SCALP: normocephalic Neck/C-Spine: COMMON NORMALS: no JVD Resp: COMMON NORMALS: normal respiratory effort, No retractions, No use of accessory muscles and clear to auscultation bilaterally AUSCULTATION: clear to auscultation bilaterally Cardio: COMMON NORMALS: no JVD, regular rate, regular rhythm, S1 normal heart sound present and S2 normal heart sound present RATE: regular rate RHYTHM: regular rhythm HEART SOUNDS: S1 normal heart sound present and S2 normal heart sound present GI: COMMON NORMALS: Normal to inspection, nondistended, normoactive bowel sounds present, Soft to palpation, non-tender, No hepatosplenomegaly present, no masses and no bruits PALPATION: Yes Soft to palpation and Yes No hepatosplenomegaly present Extremity: COMMON NORMALS: capillary refill normal, no clubbing, cyanosis or edema, no calf tenderness and no pedal edema Neuro: SENSORIUM/ORIENTATION: Yes oriented to person, Yes oriented to place and No oriented to time Psych: COMMON NORMALS: mental status grossly normal Data : 07/16/19 05:43 07/16/19 12:15 A&P Assessment and plan (1) NSTEMI (non-ST elevated myocardial infarction): -Chest pain sounds cardiac in nature -Has significant factor risk factors smoking, CAD, hypertension, hyperlipidemia -Has three-vessel bypass JIMENEZ graft for three-vessel CAD in 2016, found patent on cardiac catheterization 07/18/2015 -Cardiac catheterization 07/18/2015 showed occlusion of the first obtuse marginal branch which was bypassed, occlusion of the [place] right and an LAD, left internal mammary artery to the LAD is patent, the vein graft to the right coronary artery is patent, there is thrombotic occlusion of the vein graft to the circumflex, attempts at thrombectomy angioplasty were unsuccessful, thus mid [place] circumflex was stented to protect the second obtuse marginal branch, the first obtuse marginal branch is occluded, wall motion and disturbance in the distribution of the obtuse marginal branch was hypokinesis of the inferior wall, ejection fraction 50 to 55% -Patient had a cardiac stress test on 01/22/2017, myocardial perfusion imaging revealed small areas of persistent decreased tracer uptake in the basal inferior lateral and apical inferior wall regions, suggesting myocardial scarring versus attenuation artifact, left ventricular wall motion analysis revealed wall motion abnormalities, mild hypokinesis the left ventricle apex, moderate hypokinesis of the septum -Patient's troponins 6-hour 40.97, delta of 8.03, EKG has no acute ST-T wave changes -Patient currently is chest pain-free Plan: -Admit to cardiac IMC -Cardiology has been consulted -Aspirin, Plavix, therapeutic Lovenox -Beta-rebekah on hold given bradycardia -Trend troponins, trend EKGs -Cardiac echocardiogram ordered -Decision on cardiac cath versus stress test based on echocardiogram findings Status: Acute (2) Bradycardia: -Review of patient's medical records showed that he has a history of bradycardia, heart rates in low 50s -Patient has never been this low -Received a total of 2 mg of atropine in route to the hospital, was found to be hypotensive -Patient had admission on 03/24/2017 for symptomatic bradycardia heart rates as low as the 20s, he did have a transvenous temporary pacemaker placed at one point, was discharged on instructions on no AV jamin blocking agents, and Holter monitor Plan: -Hold all AV jamin blocking agents -Telemetry monitoring -Atropine as needed -Monitor for symptoms -Cardiology on consult Status: Acute (3) Atrial fibrillation: -Patient has a history of atrial fibrillation -On amiodarone -Patient is on baby aspirin, I am not sure why patient is not on anticoagulation Status: Acute (4) Chronic hyponatremia: -Patient has a history of chronic hyponatremia -Baseline sodium seems to be around 125-129 -Patient has run low as 119 -Etiology of beers hypo-Poto cristel, secondary to alcohol use, plus possibly also amiodarone playing a role -Patient has had multiple admissions over the past 2 years for acute on chronic hyponatremia Plan: -Monitor serum sodiums -Neurochecks, seizure precautions -Creatinine is 1.3, and as hypotensive, so possibly some component of dehydration Status: Acute (5) COPD (chronic obstructive pulmonary disease): Not in exacerbation Status: Acute (6) Peripheral vascular disease: Status: Acute (7) CKD (chronic kidney disease) stage 3, GFR 30-59 ml/min: Creatinine 1.3 Status: Acute (8) Alcohol abuse: -ciwa protocol Status: Acute Additional A&P Information Therapeutic Lovenox for DVT prophylaxis Patient states that he is okay with chest compressions, okay with drugs per ACLS, does not want to be intubated, does not want mechanical ventilation, as he saw his friend on the ventilator Attestations Medical Necessity Statement*: Patient requires continued hospitalization for chest pain, hyponatremia Coding Level of Care Code Acute Senior Product Analyst for [facility] Diagnoses NSTEMI (non-ST elevated myocardial infarction) I21.4 Bradycardia R00.1 Atrial fibrillation I48.91 Chronic hyponatremia E87.1 COPD (chronic obstructive pulmonary disease) J44.9 Peripheral vascular disease I73.9 CKD (chronic kidney disease) stage 3, GFR 30-59 ml/min N18.3 Alcohol abuse F10.10
[2019-07-16 19:17] LABS: Sodium 127 mmol/L (136-145)
--- NOTE | 2019-07-16 20:21 | PC.NURSE ---
Dr. Trujillo contacted to clarify if there would be a stress test tomorrow. Notified by doctor that there would be no stress test ordered for tomorrow
--- NOTE | 2019-07-16 22:08 | PC.NURSE ---
Patient educated not to get out of bed without assistance and verbalized understanding. Call light within reach and patient was showed call light.
[2019-07-17] VITALS (9 sets, daily range): BP systolic 100–178; BP diastolic 44–85; PULSE 17–62; RESP 16–20; TEMP 36.4–36.9; O2SAT 90–98
[2019-07-17 00:57] LABS: Sodium 128 mmol/L (136-145)
[2019-07-17] MEDS: isosorbide mononitrate ER 60 mg Tablet PO (05:09)
[2019-07-17] MEDS: enoxaparin 100 mg/mL Syringe 90 MG SUBCUT (05:09)
[2019-07-17 05:27] LABS: Basophils % 0.8 %; Eosinophils # 0.1 10^3/uL (0.0-0.8); Eosinophils % 1.2 %; Hematocrit 33.7 % (42.0-52.0); Lymphocytes # 1.1 10^3/uL (0.8-4.8); Lymphocytes % 22.9 %; Mean Corpuscular HGB Conc 32.6 g/dL (30.0-36.0); Mean Corpuscular Hemoglobin 29.9 pg (28.0-34.0); Mean Corpuscular Volume 91.6 fL (80-94); Mean Platelet Volume 8.7 fL (7.4-10.4); Monocytes # 0.3 10^3/uL (0.2-0.9); Monocytes % 6.6 %; Neutrophils # 3.4 10^3/uL (1.8-7.7); Neutrophils % 67.5 %; Nucleated Red Blood Cells % 0 %; Platelet Count 183 10^3/cmm (130-400); Red Blood Count 3.68 10^6/uL (4.1-5.3); Red Cell Distribution Width 17.7 % (12.1-15.1)
[2019-07-17 05:51] LABS: Alanine Aminotransferase 21 U/L (0-41); Albumin Level 2.8 g/dL (3.5-5.2); Alkaline Phosphatase 99 IU/L (40-130); Aspartate Amino Transferase 20 U/L (0-40); Blood Urea Nitrogen 12 mg/dL (8-23); Calcium 8.3 mg/dL (8.5-10.5); Carbon Dioxide 21 mmol/L (22-29); Globulin 2.6 g/dL (1.3-4.6); Glucose 113 mg/dL (65-115); Phosphorus 3.2 mg/dL (2.5-4.5); Total Bilirubin 0.2 mg/dL (0.15-1.2); Total Protein 5.4 g/dL (6.6-8.7)
[2019-07-17 06:08] LABS: Anion Gap 15.7 (5-19); Chloride 98 mmol/L (98-107); Osmolality Calculated 269 mOsm/kg (285-295); Potassium 3.7 mmol/L (3.5-5.1); Sodium 131 mmol/L (136-145)
--- NOTE | 2019-07-17 07:07 | PM.PN ---
Subjective Subjective: Interval history: Rudolph states that he is not doing well this morning. When I asked him what that means he said I do not know I just do not feel good . He is an exceedingly poor historian. I was only able to get out of him that I cannot pick anything up and I have a terrible headache . He said he had a couple episodes of chest pain last night. He states that he feels like he is too short of breath. Medications: Reviewed: Yes Vitals/I&O/Wt Last Vital Signs Temp 97.9 F 07/17/19 03:59 Pulse 53 L 07/17/19 03:59 Resp 19 H 07/17/19 03:59 BP 160/78 07/17/19 03:59 Pulse Ox 94 07/17/19 03:59 07/16/19 07/17/19 07/17/19 22:59 06:59 14:59 Intake Total 440 / 920 300 / 1220 Output Total 1300 / 3050 200 / 3250 Balance -860 / -2130 100 / -2030 Weight last 48 hrs Weight 200 lb Physical Exam Narrative: EXAM NARRATIVE: GENERAL: In general he looks comfortable lying flat in bed HEENT: Exam within normal limits. NECK: Supple without jugular vein distention. The carotid upstroke is normal without bruits. BACK: Exam normal. LUNGS: Clear. HEART: Regular rate and rhythm. ABDOMEN: Benign without organomegaly or tenderness. EXTREMITIES: No edema. 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 NEUROLOGIC: Exam normal. SKIN: Unremarkable. Data : 07/17/19 05:10 07/17/19 05:10 A&P Assessment and plan (1) S/P CABG (coronary artery bypass graft): Status: Acute (2) Tobacco abuse: Status: Acute (3) Hyperlipidemia: Status: Acute (4) Chronic episodic atrial fibrillation: Status: Acute (5) Benign essential hypertension with target blood pressure below 140/90: Status: Acute (6) Atherosclerotic heart disease of [place] coronary artery with other forms of angina pectoris: Status: Acute (7) Alcohol abuse: Status: Acute (8) Bradycardia: Status: Acute (9) Chest pain: Status: Acute Qualifiers: Chest pain type: unspecified Qualified Code(s): R07.9 - Chest pain, unspecified (10) Hyponatremia: Status: Acute (11) COPD (chronic obstructive pulmonary disease): Status: Acute (12) Microcytic anemia: Status: Acute (13) Peripheral vascular disease: Status: Acute (14) CKD (chronic kidney disease) stage 3, GFR 30-59 ml/min: Status: Acute (15) GERD (gastroesophageal reflux disease): Status: Acute Additional A&P Information He is such a poor historian it is nearly impossible to figure out what is going on from taking a history. I think we will just proceed with a stress test. He states that he continues to have chest discomfort. I doubt that we are going to find any significant ischemia. I would use cardiac catheterization as a last result given his underlying problems and renal insufficiency. Attestations Medical Necessity Statement*: Not applicable Coding Level of Care Code Established Pt Acute Human Resources Benefits Administrator for [facility] Patient Type Established History Comprehensive Exam Comprehensive Medical Decision Making High Complexity Diagnoses S/P CABG (coronary artery bypass graft) Z95.1 Tobacco abuse Z72.0 Hyperlipidemia E78.5 Chronic episodic atrial fibrillation I48.20 Benign essential hypertension with target blood pressure below 140/90 I10 Atherosclerotic heart disease of [place] coronary artery with other forms of angina pectoris I25.118 Alcohol abuse F10.10 Bradycardia R00.1 Chest pain R07.9 Chest pain type: unspecified Hyponatremia E87.1 COPD (chronic obstructive pulmonary disease) J44.9 Microcytic anemia D50.9 Peripheral vascular disease I73.9 CKD (chronic kidney disease) stage 3, GFR 30-59 ml/min N18.3 GERD (gastroesophageal reflux disease) K21.9
--- NOTE | 2019-07-17 07:11 | NMCV_ITS ---
NM sameer perf SPECT r/s* [id number] Rudolph Calhoun Age: 68 Gender: M : 1950 Exam Date: 07/17/2019 11:44 Ordering Phys: Tenzin Lopez MD ([email or web address]) Technologist: AKIN Turner Exam Location: [facility] Indications: CHEST PAIN STRESS TEST [facility] IMAGE PROTOCOL Rest/Stress 1 Lexiscan Day Radiopharmaceutical Dose (mCi) Administration Site Administered by Rest: Tc-99m 11.0 IV AKIN Turner Sestamibi Stress:Tc-99m 32.4 IV AKIN Turner Sestamibi Rest: 17-Jul-2019 60 Discovery 630 Stress: 17-Jul-2019 30 Discovery 630 0.4mg Lexiscan. Supine position only as patient was unable to lay prone. SPECT RESULTS Technical Quality: Excellent Raw Data Analysis: Normal Image Corrections: Patient motion artifact - motion correction applied to stress images. Summed Stress Score: 7 Summed Rest Score: 3 Summed Difference Score: 4 PERFUSION FINDINGS Myocardial perfusion may revealing a moderate area of moderately decreased tracer uptake in the basal and mid inferolateral, mid anterolateral and apical lateral regions . Some reversibility was noted in all these regions. FUNCTIONAL RESULTS (calculated via Gated SPECT) Stress Image LV EF (%): 65 Stress EDV (mL):89 TID: 0.76 Stress ESV (mL):31 FUNCTIONAL FINDINGS: Segmental wall motion analysis revealed a severe hypokinesia of the septum IMPRESSIONS 1. Myocardial perfusion may revealing a moderate area of decreased tracer uptake in the inferolateral, anterolateral and apical lateral regions with some reversibility, suggestive of myocardial scarring with ischemia in the distribution of the left circumflex artery. 2. Normal LV ejection fraction of 65%. 3. LV wall motion analysis revealing severe diffuse hypokinesia of the septum 4. Normal LV volume No similar previous studies are available for comparison Dr Karmen Real MD FACC (Electronically Signed) Final Date: 17 Jul 2019 13:56 S
--- NOTE | 2019-07-17 07:24 | ECG_ITS ---
NAME OF STUDY: LEXISCAN SESTAMIBI STRESS TEST INDICATION: Chest Pressure, LEXISCAN STRESS TEST ORDERING PHYSICIAN: Jessica CLINICAL INFORMATION: Coronary disease, bypass, chest pain INTERPRETATION: 1. The patient was brought to the laboratory where Lexiscan was infused over 20 seconds. The resting blood pressure was 132/79. Maximum blood pressure was 132/79. The resting heart rate was 56 beats per minute. The maximum heart rate is 72 beats per minute. 2. The baseline electrocardiogram reveals sinus bradycardia with an interventricular conduction delay, lack of R waves from leads V1 through V4 and nonspecific ST and T wave changes elsewhere. 3. With Lexiscan infusion, there were no ST segment changes to suggest ischemia. 4. The patient experienced no symptoms or arrhythmias during the examination. CONCLUSION: 1. Unremarkable Lexiscan infusion. 2. Nuclear imaging to follow. Electronically Signed On 07-17-2019 17:27:32 CDT by Tenzin Lopez M.D. [email or web address]
[2019-07-17] MEDS: folic acid 1 mg Tablet PO (10:07)
[2019-07-17] MEDS: pantoprazole DR 40 mg Tablet PO (10:07)
[2019-07-17] MEDS: thiamine 100 mg Tablet PO (10:08)
[2019-07-17] MEDS: clopidogrel 75 mg Tablet PO (10:08)
[2019-07-17] MEDS: amiodarone 200 mg Tablet PO ×2 (10:08→17:54)
[2019-07-17] MEDS: atorvastatin 40 mg Tablet PO (10:08)
[2019-07-17] MEDS: loratadine 10 mg Tablet PO (10:08)
[2019-07-17] MEDS: FUROsemide 40 mg Tablet PO (10:08)
[2019-07-17] MEDS: multivitamin therapeutic Tablet 1 TAB PO (10:08)
[2019-07-17] MEDS: losartan 50 mg Tablet 100 MG PO (10:09)
[2019-07-17] MEDS: aspirin 81 mg EC Tablet PO (10:09)
[2019-07-17] MEDS: acetaminophen 325 mg Tablet 650 MG PO (10:13)
[2019-07-17] MEDS: ferrous sulfate EC 325 mg Tablet PO (10:13)
[2019-07-17] MEDS: enoxaparin 40 mg/0.4 mL Syringe SUBCUT (10:13)
--- NOTE | 2019-07-17 11:56 | P.PN_ITS ---
Subjective Subjective: Interval history: This morning patient complains of intermittent episodes of chest pain overnight, no palpitations, no lightheadedness, no dizziness, no nausea, no vomiting, states that he is not feeling well today, denies visual or auditory or tactile hallucinations, no tremors, no anxiety, no diaphoresis, no hematemesis Vitals/I&O/Wt Last Vital Signs Temp 98.4 F 07/17/19 11:39 Pulse 53 L 07/17/19 11:39 Resp 16 07/17/19 11:39 BP 166/85 07/17/19 11:39 Pulse Ox 95 07/17/19 11:39 07/16/19 07/17/19 07/17/19 22:59 06:59 14:59 Intake Total 440 / 920 300 / 1220 Output Total 1300 / 3050 200 / 3250 200 / 200 Balance -860 / -2130 100 / -2030 -200 / -200 Weight last 48 hrs Weight 90.718 kg Physical Exam Const: COMMON NORMALS: no acute distress and patient oriented x3 HENMT: COMMON NORMALS: normocephalic HEAD & SCALP: normocephalic Neck/C-Spine: COMMON NORMALS: no JVD Resp: COMMON NORMALS: normal respiratory effort, No retractions, No use of accessory muscles and clear to auscultation bilaterally AUSCULTATION: clear to auscultation bilaterally Cardio: COMMON NORMALS: no JVD, regular rate, regular rhythm, S1 normal heart sound present and S2 normal heart sound present RATE: regular rate RHYTHM: regular rhythm HEART SOUNDS: S1 normal heart sound present and S2 normal heart sound present GI: COMMON NORMALS: Normal to inspection, nondistended, normoactive bowel sounds present, Soft to palpation, non-tender, No hepatosplenomegaly present, no masses and no bruits PALPATION: Yes Soft to palpation and Yes No hepatosplenomegaly present Neuro: COMMON NORMALS: patient oriented x3 Psych: COMMON NORMALS: mental status grossly normal Data : 07/17/19 05:10 07/17/19 05:10 A&P Assessment and plan (1) NSTEMI (non-ST elevated myocardial infarction): -Chest pain sounds cardiac in nature -Has significant factor risk factors smoking, CAD, hypertension, hyperlipidemia -Has three-vessel bypass JIMENEZ graft for three-vessel CAD in 2016, found patent on cardiac catheterization 07/18/2015 -Cardiac catheterization 07/18/2015 showed occlusion of the first obtuse marginal branch which was bypassed, occlusion of the [place] right and an LAD, left internal mammary artery to the LAD is patent, the vein graft to the right coronary artery is patent, there is thrombotic occlusion of the vein graft to the circumflex, attempts at thrombectomy angioplasty were unsuccessful, thus mid [place] circumflex was stented to protect the second obtuse marginal branch, the first obtuse marginal branch is occluded, wall motion and disturbance in the distribution of the obtuse marginal branch was hypokinesis of the inferior wall, ejection fraction 50 to 55% -Patient had a cardiac stress test on 01/22/2017, myocardial perfusion imaging revealed small areas of persistent decreased tracer uptake in the basal inferior lateral and apical inferior wall regions, suggesting myocardial scarring versus attenuation artifact, left ventricular wall motion analysis revealed wall motion abnormalities, mild hypokinesis the left ventricle apex, moderate hypokinesis of the septum -Patient's troponins 6-hour 40.97, delta of 8.03, EKG has no acute ST-T wave changes -Patient currently is chest pain-free Plan: -Admit to cardiac IMC -Cardiology has been consulted -Aspirin, Plavix, therapeutic Lovenox -Beta-rebekah on hold given bradycardia -Trend troponins, trend EKGs -Cardiac echocardiogram no significant wall motion abnormalities but it was a poor quality study -Plan is to perform a cardiac stress test today Status: Acute (2) Bradycardia: -Review of patient's medical records showed that he has a history of bradycardia, heart rates in low 50s -Patient has never been this low -Received a total of 2 mg of atropine in route to the hospital, was found to be hypotensive -Patient had admission on 03/24/2017 for symptomatic bradycardia heart rates as low as the 20s, he did have a transvenous temporary pacemaker placed at one point, was discharged on instructions on no AV jamin blocking agents, and Holter monitor Plan: -Hold all AV jamin blocking agents -Telemetry monitoring -Atropine as needed -Monitor for symptoms -Cardiology on consult Status: Acute (3) Atrial fibrillation: -Patient has a history of atrial fibrillation -On amiodarone Status: Acute (4) Chronic hyponatremia: -Patient has a history of chronic hyponatremia -Baseline sodium seems to be around 125-129 -Patient has run low as 119 -Etiology of beers hypo-Poto cristel, secondary to alcohol use, -Patient has had multiple admissions over the past 2 years for acute on chronic hyponatremia -Serum sodium improved to 131 Plan: -Monitor serum sodiums -Neurochecks, seizure precautions -Creatinine is 1.1 Status: Acute (5) COPD (chronic obstructive pulmonary disease): Not in exacerbation Status: Acute (6) Peripheral vascular disease: Status: Acute (7) CKD (chronic kidney disease) stage 3, GFR 30-59 ml/min: Creatinine 1.1 Status: Acute (8) Alcohol abuse: -ciwa protocol - not currently undergoing withdrawal - Status: Acute Additional A&P Information Therapeutic Lovenox for DVT prophylaxis Patient states that he is okay with chest compressions, okay with drugs per ACLS, does not want to be intubated, does not want mechanical ventilation, as he saw his friend on the ventilator Attestations Medical Necessity Statement*: Patient requires hospitalization for chest pain, awaiting stress test today Coding Level of Care Code Acute Commercial Lines Account Assistant for [facility] Diagnoses NSTEMI (non-ST elevated myocardial infarction) I21.4 Bradycardia R00.1 Atrial fibrillation I48.91 Chronic hyponatremia E87.1 COPD (chronic obstructive pulmonary disease) J44.9 Peripheral vascular disease I73.9 CKD (chronic kidney disease) stage 3, GFR 30-59 ml/min N18.3 Alcohol abuse F10.10
[2019-07-17] MEDS: regadenoson 0.4 Mg/5 ml Syringe IVP (12:30)
--- NOTE | 2019-07-17 15:51 | PC.NURSE ---
Dressing to Left upper arm noted to be saturated and leaking. Former dressing removed. Site cleansed with normal saline and patted dry with gauze. Pressure dressing applied and wrapped with coban. Patient tolerated well. Primary nurse notified.
--- NOTE | 2019-07-17 21:17 | PC.NURSE ---
Patient placed on 2 L NC due to oxygen saturation of 82 percent while sleeping. Currently at 98 percent with oxygen.
[2019-07-18] VITALS (7 sets, daily range): BP systolic 159–170; BP diastolic 78–100; PULSE 51–59; RESP 16–20; TEMP 36.4–36.9; O2SAT 97–100
--- NOTE | 2019-07-18 07:56 | PC.NURSE ---
patient yelling and upset at lab because she took to long attempting to draw blood and his breakfast is cold as well as lowered the patients bed for safety reasons and the patient wanted it up. This nurse calmed patient and will return after he finishes his breakfast to attempt to obtain specimen patient was still upset however willing to let nurse attempt blood draw after he ate.
--- NOTE | 2019-07-18 08:02 | P.PN_ITS ---
Subjective Subjective: Interval history: Rudolph is unchanged this morning. He states he feels a little better. No chest pain. Shortness of breath is chronic related to underlying COPD. He underwent a stress test yesterday which showed a fixed defect in the distribution of the circumflex with mild cy-infarct ischemia. This is the area where his graft occluded a year or more ago. At the time I was unable to open the graft so I stented the [place] circumflex. There is no ischemia in the distribution of the right coronary artery or the LAD. He states that he feels well enough to go home today. He has regained his appetite. Medications: Reviewed: Yes Vitals/I&O/Wt Last Vital Signs Temp 98.5 F 07/18/19 04:00 Pulse 53 L 07/18/19 04:00 Resp 17 07/18/19 04:00 BP 168/80 07/18/19 04:40 Pulse Ox 98 07/18/19 04:00 07/17/19 07/18/19 07/18/19 22:59 06:59 14:59 Intake Total 840 / 840 850 / 1690 Output Total 500 / 700 500 / 1200 Balance 340 / 140 350 / 490 Weight last 48 hrs Weight 209 lb Physical Exam Narrative: EXAM NARRATIVE: GENERAL: Comfortable eating breakfast HEENT: Exam within normal limits. [] NECK: Supple without jugular vein distention. The carotid upstroke is normal without bruits. BACK: Exam normal. LUNGS: Clear. HEART: Regular rate and rhythm. ABDOMEN: Benign without organomegaly or tenderness. EXTREMITIES: No edema. NEUROLOGIC: Exam normal. SKIN: Unremarkable. Skin is easily bruised and there are multiple areas of bruising and bleeding secondary to needle sticks Data : 07/17/19 05:10 07/17/19 05:10 A&P Assessment and plan (1) S/P CABG (coronary artery bypass graft): Status: Acute (2) Tobacco abuse: Status: Acute (3) Hyperlipidemia: Status: Acute (4) Chronic episodic atrial fibrillation: Status: Acute (5) Benign essential hypertension with target blood pressure below 140/90: Status: Acute (6) Atherosclerotic heart disease of [place] coronary artery with other forms of angina pectoris: Status: Acute (7) Alcohol abuse: Status: Acute (8) Bradycardia: Status: Acute (9) Chest pain: Status: Acute Qualifiers: Chest pain type: unspecified Qualified Code(s): R07.9 - Chest pain, unspecified (10) Hyponatremia: Status: Acute (11) COPD (chronic obstructive pulmonary disease): Status: Acute (12) Peripheral vascular disease: Status: Acute (13) CKD (chronic kidney disease) stage 3, GFR 30-59 ml/min: Status: Acute (14) GERD (gastroesophageal reflux disease): Status: Acute Additional A&P Information His coronary disease should be treated medically. I do not think there is enough there to justify angiography especially in the face of renal insufficiency. Currently he is free of pain and I think can safely be treated medically with the fixed defect and mild cy-infarct ischemia in the distribution of the circumflex. I am sure this reflects his most recent ME and graft closure. I think it safe for him to go home. I would continue his medications as prescribed however I would decrease the amiodarone to 200 mg once a day if indeed it is being prescribed twice daily. The aspirin, amlodipine, atorvastatin, carvedilol, Lasix, isosorbide, losartan should all be continued. His home medication list has several duplicates that includes two beta-blockers and two angiotensin receptor blockers. I would prefer he use low-dose carvedilol. He either needs to be on valsartan or losartan but not both. In addition I would discontinue his Plavix at this point since he is having significant bleeding into his skin. He should continue the aspirin. He has an appointment with me which she should keep. Attestations Medical Necessity Statement*: Not applicable Coding Level of Care Code Acute Plant Protection Guard for g Fwd History Comprehensive Exam Comprehensive Medical Decision Making High Complexity Diagnoses S/P CABG (coronary artery bypass graft) Z95.1 Tobacco abuse Z72.0 Hyperlipidemia E78.5 Chronic episodic atrial fibrillation I48.20 Benign essential hypertension with target blood pressure below 140/90 I10 Atherosclerotic heart disease of [place] coronary artery with other forms of angina pectoris I25.118 Alcohol abuse F10.10 Bradycardia R00.1 Chest pain R07.9 Chest pain type: unspecified Hyponatremia E87.1 COPD (chronic obstructive pulmonary disease) J44.9 Peripheral vascular disease I73.9 CKD (chronic kidney disease) stage 3, GFR 30-59 ml/min N18.3 GERD (gastroesophageal reflux disease) K21.9
[2019-07-18 08:42] LABS: Basophils % 0.5 %; Eosinophils # 0.1 10^3/uL (0.0-0.8); Eosinophils % 1.6 %; Hematocrit 34.4 % (42.0-52.0); Hemoglobin 11.3 g/dL (11.7-16.6); Lymphocytes % 18.6 %; Mean Corpuscular HGB Conc 32.8 g/dL (30.0-36.0); Mean Corpuscular Hemoglobin 29.2 pg (28.0-34.0); Mean Corpuscular Volume 88.9 fL (80-94); Mean Platelet Volume 8.7 fL (7.4-10.4); Monocytes # 0.4 10^3/uL (0.2-0.9); Monocytes % 6.3 %; Neutrophils # 4.1 10^3/uL (1.8-7.7); Neutrophils % 72.5 %; Nucleated Red Blood Cells % 0 %; Platelet Count 181 10^3/cmm (130-400); Red Blood Count 3.87 10^6/uL (4.1-5.3); Red Cell Distribution Width 17.2 % (12.1-15.1); White Blood Count 5.6 10^3/uL (4.0-10.0)
[2019-07-18 08:54] LABS: Alanine Aminotransferase 18 U/L (0-41); Albumin Level 3.1 g/dL (3.5-5.2); Alkaline Phosphatase 99 IU/L (40-130); Anion Gap 13.8 (5-19); Aspartate Amino Transferase 20 U/L (0-40); Blood Urea Nitrogen 10 mg/dL (8-23); Calcium 8.7 mg/dL (8.5-10.5); Carbon Dioxide 24 mmol/L (22-29); Chloride 96 mmol/L (98-107); Globulin 2.8 g/dL (1.3-4.6); Glucose 123 mg/dL (65-115); Magnesium 1.9 mg/dL (1.7-2.3); Osmolality Calculated 267 mOsm/kg (285-295); Phosphorus 2.9 mg/dL (2.5-4.5); Potassium 3.8 mmol/L (3.5-5.1); Sodium 130 mmol/L (136-145); Total Bilirubin 0.3 mg/dL (0.15-1.2); Total Protein 5.9 g/dL (6.6-8.7)
[2019-07-18] MEDS: thiamine 100 mg Tablet PO (09:00)
[2019-07-18] MEDS: folic acid 1 mg Tablet PO (09:00)
[2019-07-18] MEDS: atorvastatin 40 mg Tablet PO (09:00)
[2019-07-18] MEDS: pantoprazole DR 40 mg Tablet PO (09:01)
[2019-07-18] MEDS: HYDROcodone-acetaminophen 5-325 mg Tablet 1 TAB PO (09:01)
[2019-07-18] MEDS: amiodarone 200 mg Tablet PO (09:01)
[2019-07-18] MEDS: clopidogrel 75 mg Tablet PO (09:01)
[2019-07-18] MEDS: losartan 50 mg Tablet 100 MG PO (09:01)
[2019-07-18] MEDS: loratadine 10 mg Tablet PO (09:01)
[2019-07-18] MEDS: ferrous sulfate EC 325 mg Tablet PO (09:02)
[2019-07-18] MEDS: FUROsemide 40 mg Tablet PO (09:02)
[2019-07-18] MEDS: aspirin 81 mg EC Tablet PO (09:02)
[2019-07-18] MEDS: multivitamin therapeutic Tablet 1 TAB PO (09:02)
[2019-07-18] MEDS: MAGNESIUM OXIDE 420 MG 420 EACH PO (09:39)
--- NOTE | 2019-07-18 10:51 | PC.CHAP ---
Pastoral Care Encounter/Spiritual Assessment Type of Contact [] Declined stunner visit [] Patient/Family/Request visit [] Outpatient visit [] Follow-up visit [] Physician referral [] Code/Alert [x] Routine visit [] Staff referral [] Actively dying [] Patient sleeping [] Family support [] [] Out of room [] Palliative care [] [] Receiving care in room [] Pre-surgical visit [] Trauma [] Long length of stay [] ICU visit [] Other: Relational/Emotional Strength [x] Patient feels connected with others/family/visitors/staff [] Distress [] Loneliness/isolation [] Abandonment Spirituality of Patient [] Person of Lisa [] Attends Protestant of their Lisa [x] Believes in Prayer [] Reads Bible or Sikhism materials [] There are Spiritual issues to be addressed Sales Representative [employer] Interventions [x] Prayer [x] Active listening [x] Non-anxious presence [] Spiritual/emotional support [] Crisis/trauma care [] Spiritual counseling [] Bereavement support [] Provided bereavement packet [] Provided Bible/devotional materials [] Provided toy/stuffed animal, coloring book to patient or family member [] Provided Communion [] Anointing/[place] [] Salvation [x] Completed spiritual assessment [] Other: Impact on Illness or Injury [] Angry [] Fearful [] Anxious [] Often cries [] Exhaustion [] Unable to work [] Unable to attend advent [] Unable to walk/stand [] Unable to read [] Unable to drive [] Unable to eat/drink [] Unable to sleep [] Unable to be with family [] Patient intubated [] Other: Summary Pt is elderly gentleman being discharged later today. He is feeling much better and is anxious to get home to family and pets. [employer] Raeann Chang Time spent with patient 8 minutes
--- NOTE | 2019-07-18 11:14 | PM.DCS ---
Discharge Providers Date of Admission: 07/15/19 16:38 Date of Discharge: July 18, 2019 Attending Provider at Admission: Colby Trujillo MD Attending Provider at Discharge: Colby Trujillo MD Primary Care Provider: Jv Ruiz Diagnoses at Discharge Discharge Diagnosis (1) S/P CABG (coronary artery bypass graft): Status: Acute (2) Tobacco abuse: Status: Acute (3) Hyperlipidemia: Status: Acute (4) Chronic episodic atrial fibrillation: Status: Acute (5) Benign essential hypertension with target blood pressure below 140/90: Status: Acute (6) Atherosclerotic heart disease of [place] coronary artery with other forms of angina pectoris: Status: Acute (7) Alcohol abuse: Status: Acute (8) Bradycardia: Status: Acute (9) Chest pain: Status: Acute Qualifiers: Chest pain type: unspecified Qualified Code(s): R07.9 - Chest pain, unspecified (10) Hyponatremia: Status: Acute (11) COPD (chronic obstructive pulmonary disease): Status: Acute (12) Peripheral vascular disease: Status: Acute (13) CKD (chronic kidney disease) stage 3, GFR 30-59 ml/min: Status: Acute (14) GERD (gastroesophageal reflux disease): Status: Acute Reason for Visit Reason for Visit: Reason For Visit: CP Hospital Course Discharge Summary: Rudolph Calhoun is a 68 year old male with a past medical history of CAD status post CABG x1, status post drug-eluting stent to left circumflex, history of atrial fibrillation on amiodarone and aspirin low-dose, peripheral vascular disease, right BKA, left TMA, chronic smoker, COPD not oxygen dependent, hypertension, hyperlipidemia, GERD, diastolic heart failure, ethanol abuse, chronic hyponatremia baseline sodium is 129, CKD stage III who presents to the emergency room due to complaints of chest pain. For his chest pain, patient had minimally elevated troponins, no acute ST-T wave changes, cardiology was consulted, his echocardiogram was a poor quality study, but there was hypokinesis but wall motion disturbances could not be assessed, ejection fraction could not be assessed. Patient had a cardiac nuclear stress test, it ejection fraction 65%,revealing a moderate area of decreased tracer uptake in the inferolateral, anterolateral and apical lateral regions with some reversibility, suggestive of myocardial scarring with ischemia in the distribution of the left circumflex artery. Cardiology elected for medical management, patient will be discharged on aspirin 81 mg, his Plavix was discontinued, Coreg 3.125 twice daily, Lasix 40 mg daily, losartan 100 mg daily, amiodarone 200 mg daily, Imdur 60 mg p.o. every morning, with a close follow-up with cardiology next week. Patient also had bradycardia on route to the hospital, received atropine a few times, has a history of chronic bradycardia, patient has had a transvenous temporary pacemaker placed at one point on his admission 03/24/2017, throughout his admission he continued to have episodes of bradycardia, but was asymptomatic. On admission patient was also found to be hyponatremic, he has a chronic history of hyponatremia, secondary to alcohol use, patient serum sodium improved throughout his admission, discharged and serum sodium was 130, patient was advised to stop drinking alcohol. For alcohol abuse, patient had CIWA protocol during his admission, no significant withdrawal symptoms. Physical Exam Const: COMMON NORMALS: no acute distress and patient oriented x3 HENMT: COMMON NORMALS: normocephalic HEAD & SCALP: normocephalic Neck/C-Spine: COMMON NORMALS: no JVD Resp: COMMON NORMALS: normal respiratory effort, No retractions, No use of accessory muscles and clear to auscultation bilaterally AUSCULTATION: clear to auscultation bilaterally Cardio: COMMON NORMALS: no JVD, regular rate, regular rhythm, S1 normal heart sound present and S2 normal heart sound present RATE: regular rate RHYTHM: regular rhythm HEART SOUNDS: S1 normal heart sound present and S2 normal heart sound present GI: COMMON NORMALS: Normal to inspection, nondistended, normoactive bowel sounds present, Soft to palpation, non-tender, No hepatosplenomegaly present, no masses and no bruits PALPATION: Yes Soft to palpation and Yes No hepatosplenomegaly present Neuro: COMMON NORMALS: patient oriented x3 Psych: COMMON NORMALS: mental status grossly normal Discharge Data Data Completed and Pending: Completed Studies During Hospitalization Category Date Time Status Cardiac Stress Te st MIBI [Sestamibi Stress Test Reque st Exams 07/17/19 07:24 Completed ] Routine XR chest 1V madhuri ble [id number] Stat Exams 07/15/19 15:02 Completed NM sameer perf SPECT r/s* [id number] Routin e Nuc Med 07/17/19 07:11 Completed CV echo complete* [id number] Routine Ultrasound 07/16/19 06:00 Completed Labs from last 24 hours 07/18/19 07/18/19 08:20 07:50 WBC 5.6 RBC 3.87 L Hgb 11.3 L Hct 34.4 L MCV 88.9 MCH 29.2 MCHC 32.8 RDW 17.2 H Plt Count 181 MPV 8.7 Neut % (Auto) 72.5 Lymph % (Auto) 18.6 [place] % (Auto) 6.3 Eos % (Auto) 1.6 Baso % (Auto) 0.5 Neut # (Auto) 4.1 Lymph # (Auto) 1.0 [place] # (Auto) 0.4 Eos # (Auto) 0.1 Baso # (Auto) 0.0 Nucleated RBC % (a uto) 0 Nucleated RBCs # 0.0 Sodium 130 L Potassium 3.8 Chloride 96 L Carbon Dioxide 24 Anion Gap 13.8 BUN 10 Creatinine 1.1 GFR Calculation 67.0 L Glucose 123 H Calculated Osmolal ity 267 L Calcium 8.7 Phosphorus 2.9 Magnesium 1.9 Total Bilirubin 0.3 AST 20 ALT 18 Alkaline Phosphata se 99 Total Protein 5.9 L Albumin 3.1 L Globulin 2.8 Vitals: Last Vital Signs Temp 98.5 F 07/18/19 04:00 Pulse 51 L 07/18/19 09:46 Resp 20 H 07/18/19 09:46 BP 159/88 07/18/19 09:46 Pulse Ox 97 07/18/19 09:46 Discharge Plan Discharge Patient Disposition: Home, Self-Care Condition: Stable Prescriptions: New Pacerone 200 mg Tablet 200 mg PO DAILY 30 Days Qty: 30 RF: 0 atorvastatin 40 mg Tablet 40 mg PO DAILY 30 Days Qty: 30 RF: 0 folic acid 1 mg Tablet 1 mg PO DAILY 30 Days Qty: 30 RF: 0 Vitamin B-1 (mononitrate) 100 mg Tablet 100 mg PO DAILY 30 Days Qty: 30 RF: 0 Thera 400 mcg Tablet 1 tab PO DAILY 30 Days Qty: 30 RF: 0 carvedilol [Coreg] 3.125 mg tablet 3.125 mg PO BID 30 Days Qty: 60 RF: 0 Continued nitroglycerin [Nitrostat] 0.4 mg tablet, sublingual 0.4 mg SUBLINGUAL Q5M PRN (Reason: Chest Pain) RF: 0 potassium chloride [Klor-Con 10] 10 mEq tablet extended release 10 meq PO DAILY RF: 0 ferrous sulfate 325 mg (65 mg iron) tablet 325 mg PO DAILY RF: 0 magnesium oxide 420 mg tablet 420 mg PO DAILY RF: 0 furosemide 40 mg tablet 40 mg PO DAILY 30 Days Qty: 30 RF: 0 Norvasc 5 mg tablet 5 mg PO DAILY 30 Days Qty: 30 RF: 0 aspirin [Adult Low Dose Aspirin] 81 mg tablet,delayed release (DR/EC) 81 mg PO DAILY 30 Days Qty: 30 RF: 0 isosorbide mononitrate 60 mg tablet extended release 24 hr 60 mg PO QAM 30 Days Qty: 30 RF: 0 losartan 100 mg tablet 100 mg PO DAILY 30 Days Qty: 30 RF: 0 pantoprazole 40 mg tablet,delayed release (DR/EC) 40 mg PO DAILY 30 Days Qty: 30 RF: 0 Discontinued metoprolol tartrate 25 mg tablet 12.5 mg PO BID RF: 0 amiodarone 200 mg tablet 200 mg PO BID RF: 0 atorvastatin 10 mg tablet 10 mg PO DAILY RF: 0 carvedilol 6.25 mg tablet 6.25 mg PO BID RF: 0 clopidogrel 75 mg tablet 75 mg PO DAILY RF: 0 valsartan 80 mg tablet 80 mg PO DAILY RF: 0 loratadine 10 mg tablet 10 mg PO DAILY RF: 0 prednisone 20 mg tablet 20 mg PO DAILY RF: 0 Discharge Orders: Discharge Order (Routine); Ordered 07/18/19 Ordered By: Colby Trujillo Referrals: [facility] [Outside] Tenzin Lopez MD [Physician] - 1 week Jv Ruiz [Primary Care Provider] - Discharge Diet: Cardiac Discharge Activity: Resume usual activity Patient Instructions: Chest Pain (DC), Hyponatremia (DC), Abuse of Alcohol (GEN) Activity Restrictions/Additional Instructions: -Please abstain from consuming alcohol -Please take medications as prescribed -Follow-up with your Dr. Lopez in 1 week Discharge Attestations Time Spent in Discharge Care*: less than 30 min Quality Metrics Clinical Quality Measures During this hospital stay, did patient experience: None Coding Level of Care Code Acute Pit Shoveler for [facility] Fwd Exam Detailed Diagnoses S/P CABG (coronary artery bypass graft) Z95.1 Tobacco abuse Z72.0 Hyperlipidemia E78.5 Chronic episodic atrial fibrillation I48.20 Benign essential hypertension with target blood pressure below 140/90 I10 Atherosclerotic heart disease of [place] coronary artery with other forms of angina pectoris I25.118 Alcohol abuse F10.10 Bradycardia R00.1 Chest pain R07.9 Chest pain type: unspecified Hyponatremia E87.1 COPD (chronic obstructive pulmonary disease) J44.9 Peripheral vascular disease I73.9 CKD (chronic kidney disease) stage 3, GFR 30-59 ml/min N18.3 GERD (gastroesophageal reflux disease) K21.9
--- NOTE | 2019-07-18 15:33 | PC.SOCIAL ---
*IMM* Patient received his Important message from [employer] today. Original is in chart, patient received the copy.
== END 2019-07-18 13:00 | disposition home or self-care (01) | DRG 303 ==
LOC: ER 16:54 → MEDSURG 17:21 → CSU 07-17 16:49
PROVIDERS: Emergency Medicine; Admitting Provider Family Medicine; PCP Family Medicine; Visit Provider Family Medicine
DX: I25.118 Atherosclerotic heart disease of native coronary artery with other forms of angina pectoris (principal); I13.0 Hypertensive heart and chronic kidney disease with heart failure and stage 1 through stage 4 chronic kidney disease, or unspecified chronic kidney disease; I50.30 Unspecified diastolic (congestive) heart failure; E87.1 Hypo-osmolality and hyponatremia; I48.20 Chronic atrial fibrillation, unspecified; R00.1 Bradycardia, unspecified; I73.9 Peripheral vascular disease, unspecified; E78.5 Hyperlipidemia, unspecified; J44.9 Chronic obstructive pulmonary disease, unspecified; N18.3 Chronic kidney disease, stage 3 (moderate); K21.9 Gastro-esophageal reflux disease without esophagitis; Z95.1 Presence of aortocoronary bypass graft; Z95.5 Presence of coronary angioplasty implant and graft; Z89.511 Acquired absence of right leg below knee; Z79.82 Long term (current) use of aspirin; F10.20 Alcohol dependence, uncomplicated; Z79.02 Long term (current) use of antithrombotics/antiplatelets; I44.0 Atrioventricular block, first degree; D50.9 Iron deficiency anemia, unspecified; F17.210 Nicotine dependence, cigarettes, uncomplicated
CPT/HCPCS: 12345; 36415; 71045; 78452; 80053; 80306; 80307; 81001; 83036; 83605; 83735; 83880; 84100; 84295; 84443; 84484; 85025; 93005; 93017; 93306; 94664; 96372; 99284; A9500; J1650; J2785; J3411; J7030

== ENCOUNTER 2019-08-20 18:08 | Emergency (ER) | payer MEDICARE, MEDICAID, SELFPAY ==
[2019-08-20 18:10] VITALS: BMI 27.6
[2019-08-20 18:17] VITALS: BP 154/75; PULSE 55; RESP 18; TEMP 36.7; O2SAT 97
--- NOTE | 2019-08-20 18:25 | W.ED.GENADLT ---
HPI - General Adult General: Chief complaint: General Medical Stated complaint: HYPERTENSION Time Seen by Provider: 08/20/19 18:15 Source: patient Mode of arrival: ambulatory Limitations: no limitations History of Present Illness: HPI narrative: 69-year-old male who came here by EMS for high blood pressure. He states he bought a new blood pressure cuff from [facility] in the last 3 days he is used that cuff it is been very high and has had multiple very different readings. He was getting concerned and went to EMS called EMS. Per EMS his blood pressures have been normal with them. Patient's blood pressures currently 154/75. He had no symptoms and denies any chest pain or headaches. Associated symptoms: Deny chest pain, dyspnea, headache(s), nausea, rash or vomiting Review of Systems Const: Denies: fever(s), chills, body aches or change in appetite Eyes: Denies: blurry vision or eye discomfort ENMT: Denies: throat pain or dental pain Card: Denies: chest pain Resp: Denies: dyspnea GI: Denies: abdominal pain, nausea, vomiting or diarrhea : Denies: dysuria Musc: Denies: neck pain or back pain Skin/Breast: Denies: rash Neuro: Denies: headache(s) Psych: Denies: depression Priyank/Lymph: Denies: easy bruising All/Imm: Denies: urticaria PFSH ED PFSH: Medical History (Updated 08/20/19 @ 18:56 by Delma Penny MD) Alcohol abuse ASHD (arteriosclerotic heart disease) Atherosclerotic heart disease of [place] coronary artery with other forms of angina pectoris Benign essential hypertension with target blood pressure below 140/90 Chronic episodic atrial fibrillation Chronic hyponatremia CKD (chronic kidney disease) stage 3, GFR 30-59 ml/min Congestive heart failure COPD (chronic obstructive pulmonary disease) GERD (gastroesophageal reflux disease) Hyperlipidemia Microcytic anemia Peripheral vascular disease Tobacco abuse Surgical History S/P CABG (coronary artery bypass graft) S/P cardiac catheterization S/P tonsillectomy Status post below knee amputation of right lower extremity Family History Mother Hypertension CAD (coronary artery disease) Social History (Updated 07/25/19 @ 08:22 by Zo Amato RN) Smoking and tobacco status: current every day smoker cigarettes Packs smoked per day: 2 Alcohol intake: current Alcohol intake frequency: 3 or more drinks per day Alcohol type: beer Desire information about alcohol rehabilitation?: No Physical Exam Const: COMMON NORMALS: no acute distress, patient oriented x3 and healthy appearing HENMT: COMMON NORMALS: normocephalic and atraumatic HEAD & SCALP: normocephalic and atraumatic Eye: COMMON NORMALS: Equal, round and reactive pupils present and EOMs intact bilaterally PUPIL: Yes Equal, round and reactive pupils present Neck/C-Spine: COMMON NORMALS: full ROM and supple Chest: COMMONS NORMALS: normal inspection of the chest and normal palpation of entire chest wall Resp: COMMON NORMALS: normal respiratory effort, No retractions, No use of accessory muscles and clear to auscultation bilaterally AUSCULTATION: clear to auscultation bilaterally Cardio: COMMON NORMALS: regular rate, regular rhythm and No murmurs present (Cardio) RATE: regular rate RHYTHM: regular rhythm GI: COMMON NORMALS: Normal to inspection, nondistended, normoactive bowel sounds present, Soft to palpation, non-tender and no masses PALPATION: Yes Soft to palpation Extremity: COMMON NORMALS: normal to inspection and full ROM Neuro: COMMON NORMALS: patient oriented x3, moves all extremities and no focal motor deficits Psych: COMMON NORMALS: mental status grossly normal, Normal thought process present and cooperative THOUGHT PROCESS: Normal thought process present Skin: COMMON NORMALS: no rashes or lesions noted and no wounds GENERAL SKIN EXAM: no rashes or lesions noted Course Vital Signs: Vital signs: Vital Signs Temperature 98.0 F 08/20/19 18:17 Pulse Rate 55 L 08/20/19 18:17 Respiratory Rate 18 08/20/19 18:55 Blood Pressure 154/75 08/20/19 18:17 Pulse Oximetry 97 08/20/19 18:17 MDM - General Adult MDM Narrative: Medical decision making narrative: Rudolph presents with high blood pressure that is since resolved. He is well-appearing here and lab work is normal. We will increase his amlodipine from 5 to 10 mg. Patient has no signs of cardiac cause and is stable for discharge. He is to follow-up with his primary care doctor in 3 to 5 days return if worsening. Lab Data: Labs: Lab Results 08/20/19 08/20/19 Range/Units 18:25 18:25 WBC 7.2 (4.0-10.0) 10^3/ uL RBC 4.11 (4.1-5.3) 10^6/u L Hgb 12.2 (11.7-16.6) g/dL Hct 36.1 L (42.0-52.0) % MCV 87.8 (80-94) fL MCH 29.7 (28.0-34.0) pg MCHC 33.8 (30.0-36.0) g/dL RDW 14.7 (12.1-15.1) % Plt Count 230 (130-400) 10^3/c mm MPV 8.2 (7.4-10.4) fL Neut % (Auto) 69.5 % Lymph % (Auto) 21.0 % [place] % (Auto) 7.2 % Eos % (Auto) 0.6 % Baso % (Auto) 0.7 % Neut # (Auto) 5.0 (1.8-7.7) 10^3/u L Lymph # (Auto) 1.5 (0.8-4.8) 10^3/u L [place] # (Auto) 0.5 (0.2-0.9) 10^3/u L Eos # (Auto) 0.0 (0.0-0.8) 10^3/u L Baso # (Auto) 0.1 (0.0-0.1) 10^3/u L Nucleated RBC % (a uto) 0 % Nucleated RBCs # 0.0 /100WBC Sodium 132 L (136-145) mmol/L Potassium 3.5 (3.5-5.1) mmol/L Chloride 95 L (98-107) mmol/L Carbon Dioxide 22 (22-29) mmol/L Anion Gap 18.5 (5-19) BUN 13 (8-23) mg/dL Creatinine 1.3 H (0.7-1.2) mg/dL GFR Calculation 55.1 L (90-130) mL/min Glucose 100 (65-115) mg/dL Calculated Osmolal ity 270 L (285-295) mOsm/k g Calcium 8.9 (8.5-10.5) mg/dL EKG Data^: EKG 1: EKG interpretation date: 08/20/19 EKG interpretation time: 18:21 Interpretation: Sinus bradycardia heart rate [address] or T wave abnormalities QRS 102 QTC 502 Discharge Plan Discharge Patient Disposition: Home, Self-Care Clinical Impression: Hypertension Qualifiers: Hypertension type: unspecified Qualified Code(s): I10 - Essential (primary) hypertension Condition: Stable Prescriptions: New amlodipine 10 mg tablet 10 mg PO DAILY Qty: 30 RF: 0 No Action nitroglycerin [Nitrostat] 0.4 mg tablet, sublingual 0.4 mg SUBLINGUAL Q5M PRN (Reason: Chest Pain) RF: 0 magnesium oxide 420 mg tablet 400 mg PO DAILY RF: 0 Norvasc 5 mg tablet 5 mg PO DAILY 90 Days Qty: 90 RF: 2 atorvastatin 40 mg tablet 40 mg PO DAILY 90 Days Qty: 90 RF: 2 Coreg 3.125 mg tablet 3.125 mg PO BID 90 Days Qty: 180 RF: 2 isosorbide mononitrate 60 mg tablet extended release 24 hr 60 mg PO QAM 90 Days Qty: 90 RF: 2 losartan 100 mg tablet 100 mg PO DAILY 90 Days Qty: 90 RF: 2 potassium chloride [Klor-Con 10] 10 mEq tablet extended release 10 meq PO DAILY Qty: 90 RF: 2 Pacerone 200 mg tablet 200 mg PO DAILY 90 Days Qty: 90 RF: 2 prednisone 5 mg tablet 5 mg PO DAILY RF: 0 clobetasol 0.05 % cream 1 applic TOPICAL BID PRN (Reason: unknown) RF: 0 clopidogrel 75 mg tablet 75 mg PO DAILY RF: 0 Daily-Wild Tablet 1 tab PO DAILY RF: 0 Vitamin B-1 100 mg Tablet 100 mg PO DAILY RF: 0 folic acid 1 mg Tablet 1 mg PO DAILY RF: 0 Singulair 10 mg Tablet 10 mg PO DAILY RF: 0 hydralazine 50 mg tablet See Rx Instructions .ROUTE .COMPLEX RF: 0 furosemide 40 mg tablet 40 mg PO DAILY 30 Days Qty: 30 RF: 0 pantoprazole 40 mg tablet,delayed release (DR/EC) 40 mg PO DAILY 30 Days Qty: 30 RF: 0 Discharge Orders: Discharge Order (Routine); Ordered 08/20/19 Ordered By: Delma Penny Referrals: Chioma Quezada [Primary Care Provider] - Discharge Diet: Advance as tolerated Discharge Activity: Resume usual activity Patient Instructions: Hypertension (ED) Coding Level of Care Code ED Radio Intelligence Operator for [place] Fwd Exam Comprehensive
--- NOTE | 2019-08-20 18:26 | PC.NURSE ---
EKG done at 1820 and shown to ER doctor. Patient had approximately half inch skin tare on the back left upper arm, placed 2x2 gauze and wrapped with co-band, charge nurse was notified.
[2019-08-20 18:32] LABS: Basophils # 0.1 10^3/uL (0.0-0.1); Basophils % 0.7 %; Eosinophils % 0.6 %; Hematocrit 36.1 % (42.0-52.0); Hemoglobin 12.2 g/dL (11.7-16.6); Lymphocytes # 1.5 10^3/uL (0.8-4.8); Mean Corpuscular HGB Conc 33.8 g/dL (30.0-36.0); Mean Corpuscular Hemoglobin 29.7 pg (28.0-34.0); Mean Corpuscular Volume 87.8 fL (80-94); Mean Platelet Volume 8.2 fL (7.4-10.4); Monocytes # 0.5 10^3/uL (0.2-0.9); Monocytes % 7.2 %; Neutrophils % 69.5 %; Nucleated Red Blood Cells % 0 %; Platelet Count 230 10^3/cmm (130-400); Red Blood Count 4.11 10^6/uL (4.1-5.3); Red Cell Distribution Width 14.7 % (12.1-15.1); White Blood Count 7.2 10^3/uL (4.0-10.0)
[2019-08-20 18:46] LABS: Anion Gap 18.5 (5-19); Blood Urea Nitrogen 13 mg/dL (8-23); Calcium 8.9 mg/dL (8.5-10.5); Carbon Dioxide 22 mmol/L (22-29); Chloride 95 mmol/L (98-107); Creatinine Clr Calc Pharmacy 68.8889; Glomerular Filtration Rate 55.1 mL/min (90-130); Glucose 100 mg/dL (65-115); Osmolality Calculated 270 mOsm/kg (285-295); Potassium 3.5 mmol/L (3.5-5.1); Sodium 132 mmol/L (136-145)
[2019-08-20 18:55] VITALS: RESP 18
[2019-08-20] MEDS: morphine 4 mg/mL SDV 1 mL IVP (18:55)
[2019-08-20 20:01] VITALS: BP 168/79; PULSE 60; RESP 16; TEMP 36.8; O2SAT 96
== END 2019-08-20 20:09 | disposition home or self-care (01) ==
PROVIDERS: Emergency Provider Emergency Medicine; PCP Nurse Practitioner Family
DX: I13.0 Hypertensive heart and chronic kidney disease with heart failure and stage 1 through stage 4 chronic kidney disease, or unspecified chronic kidney disease (principal); N18.3 Chronic kidney disease, stage 3 (moderate); I50.9 Heart failure, unspecified; I48.20 Chronic atrial fibrillation, unspecified; J44.9 Chronic obstructive pulmonary disease, unspecified; E78.5 Hyperlipidemia, unspecified; I73.9 Peripheral vascular disease, unspecified; Z95.1 Presence of aortocoronary bypass graft; Z89.511 Acquired absence of right leg below knee; F17.210 Nicotine dependence, cigarettes, uncomplicated
CPT/HCPCS: 12345; 36415; 80048; 85025; 96374; 96375; 99282; 99283; J2270

== ENCOUNTER 2019-10-11 06:07 | Emergency (ER) | payer MEDICARE, MEDICAID, SELFPAY ==
[2019-10-11 06:13] VITALS: BP 143/69; PULSE 65; RESP 28; O2SAT 100; BMI 28.2
--- NOTE | 2019-10-11 06:13 | XRR_ITS ---
PROCEDURE INFORMATION: Exam: XR Chest, 1 View Exam date and time: 10/11/2019 6:15 AM Age: 69 years old Clinical indication: Shortness of breath; Chest pain; Prior surgery; Surgery type: Heart; Additional info: Cp TECHNIQUE: Imaging protocol: XR of the chest Views: 1 view. COMPARISON: CR XR chest 1V portable [id number] 07/15/2019 3:09 PM FINDINGS: Lungs: Unremarkable. No consolidation. Pleural space: Unremarkable. No pleural effusion. No pneumothorax. Heart/Mediastinum: Unremarkable. No cardiomegaly. Bones/joints: Status post median sternotomy. XR/XR chest 1V portable [id number] IMPRESSION: There are no acute chest findings.
--- NOTE | 2019-10-11 06:13 | ECG_ITS ---
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 Measurements Intervals [place] Rate: 63 P: 77 VT: 247 QRS: 73 QRSD: 109 T: 0 QT: 463 QTc: 474 Interpretive Statements SINUS RHYTHM WITH FIRST DEGREE AV BLOCK MODERATE INTRAVENTRICULAR CONDUCTION DELAY [105+ ms QRS DURATION, 80+ ms Q/S IN V1/V2, NO Q AND 60+ ms R IN I/aVL/V5/V6] NONSPECIFIC T-WAVE ABNORMALITY PROLONGED QT INTERVAL Compared to ECG 07/15/2019 21:36:02 Sinus bradycardia no longer present T-wave abnormality still present Electronically Signed On 10-11-2019 12:39:59 CDT by Jeri Diallo M.D. [id number]
--- NOTE | 2019-10-11 06:30 | W.ED.CHESTPA ---
HPI - Chest Pain General: Chief Complaint: Chest Pain Stated Complaint: CHEST PAIN/N/V/ RESPT DISTRESS Time Seen by Provider: 10/11/19 06:13 History of Present Illness: HPI narrative: 67-year-old male presents emergency room with complaint of chest pain that began at 4 AM while he was sleeping. Woke him up from sleep and made a little bit dizzy reports a chest pain is on the left side radiates into his back is no radiation to his neck arm or shoulders. He has previously had bypass and PTCA in the past with stents. He still having mild chest pain now he has vomited x1 at home he was given enteric-coated aspirin by the EMS he did take 1 nitro on his own he reports it helped relieve the pain. Patient has difficult time following conversations. He has slurred and garbled speech, he also has difficult time answering questions. MD complaint: chest pain Pertinent past history: coronary artery disease, [employer] and CABG Onset (ago): hour(s) Timing of current episode: episodic Prior episodes: Yes Onset: during rest Pain location: left chest Pain radiation: back Severity: moderate Pain scale (0-10): 4 Quality: sharp Relieving factors: nitroglycerin and rest Exacerbating factors: nothing Associated symptoms: Reports no associated symptoms; Deny abdominal pain, dyspnea, fever(s), nausea or vomiting Treatment prior to arrival: none Review of Systems Const: Denies: fever(s), chills, body aches, change in appetite, fatigue or malaise ENMT: Denies: throat pain, ear or mastoid pain, nasal discharge or nasal congestion Card: Denies: chest pain, edema, dyspnea on exertion or orthopnea Resp: Denies: dyspnea, productive cough or non-productive cough GI: Denies: abdominal pain, nausea, vomiting, hematemesis, coffee ground emesis, diarrhea, constipation, bloating, hematochezia or melena : Denies: flank pain, dysuria, urinary frequency or urinary urgency Skin/Breast: Denies: rash or pruritus PFS ED PFSH: Medical History Alcohol abuse ASHD (arteriosclerotic heart disease) Atherosclerotic heart disease of [place] coronary artery with other forms of angina pectoris Benign essential hypertension with target blood pressure below 140/90 Chronic episodic atrial fibrillation Chronic hyponatremia CKD (chronic kidney disease) stage 3, GFR 30-59 ml/min Congestive heart failure COPD (chronic obstructive pulmonary disease) GERD (gastroesophageal reflux disease) Hyperlipidemia Microcytic anemia Peripheral vascular disease Tobacco abuse Surgical History S/P CABG (coronary artery bypass graft) S/P cardiac catheterization S/P tonsillectomy Status post below knee amputation of right lower extremity Family History Mother Hypertension CAD (coronary artery disease) Social History Smoking and tobacco status: current every day smoker cigarettes Packs smoked per day: 2 Alcohol intake: current Alcohol intake frequency: 3 or more drinks per day Alcohol type: beer Desire information about alcohol rehabilitation?: No Physical Exam Const: COMMON NORMALS: no acute distress GENERAL APPEARANCE: cooperative and comfortable ORIENTATION/CONSCIOUSNESS: Yes awake, Yes oriented to person, Yes oriented to place and Yes oriented to time HENMT: COMMON NORMALS: normocephalic and atraumatic HEAD & SCALP: normocephalic and atraumatic Eye: COMMON NORMALS: Equal, round and reactive pupils present, EOMs intact bilaterally, conjunctivae normal and no scleral icterus CONJUNCTIVA: Yes conjunctivae normal PUPIL: Yes Equal, round and reactive pupils present Neck/C-Spine: COMMON NORMALS: full ROM, no lymphadenopathy, supple and no JVD Lymph: LYMPHATIC: no lymphadenopathy noted and no lymphedema noted Resp: COMMON NORMALS: normal respiratory effort, No retractions, No use of accessory muscles and clear to auscultation bilaterally AUSCULTATION: clear to auscultation bilaterally Cardio: COMMON NORMALS: no JVD, regular rate, regular rhythm and No murmurs present (Cardio) RATE: regular rate RHYTHM: regular rhythm GI: COMMON NORMALS: Soft to palpation and No hepatosplenomegaly present AUSCULTATION: Yes normoactive bowel sounds PALPATION: Yes Soft to palpation, No Tenderness to palpation present (GI), No Guarding due to palpation present (GI) and Yes No hepatosplenomegaly present Extremity: COMMON NORMALS: normal to inspection, capillary refill normal, no clubbing, cyanosis or edema, no calf tenderness and no pedal edema Neuro: SENSORIUM/ORIENTATION: Yes oriented to person, Yes oriented to place and Yes oriented to time Skin: COMMON NORMALS: no rashes or lesions noted GENERAL SKIN EXAM: no rashes or lesions noted Course Vital Signs: Vital signs: Vital Signs Pulse Rate 64 10/11/19 07:30 Respiratory Rate 22 H 10/11/19 07:30 Blood Pressure 143/69 10/11/19 07:30 Pulse Oximetry 99 10/11/19 07:30 MDM - Chest Pain MDM Narrative: Medical decision making narrative: Patient has significant coronary artery disease and peripheral artery disease. He did get complete relief after 1 nitro. He had a sestamibi stress test in July of this year and they elected to treat medically. I discussed with Dr. luna he does not have any EKG changes his troponin delta is negative. He is pain-free now she recommends that we go ahead and increase his Imdur bit to 90 daily continue his Plavix if he has recurrent symptoms recheck in 1 prior after go ahead and put him in the hospital. Otherwise have him follow-up with cardiology early next week. Lab Data: Attestation: I reviewed the patient's lab results. Labs: Lab Results 10/11/19 10/11/19 10/11/19 Range/Units 06:30 06:30 06:30 WBC 9.0 (4.0-10.0) 10^3/ uL RBC 4.09 L (4.1-5.3) 10^6/u L Hgb 12.2 (11.7-16.6) g/dL Hct 36.9 L (42.0-52.0) % MCV 90.2 (80-94) fL MCH 29.8 (28.0-34.0) pg MCHC 33.1 (30.0-36.0) g/dL RDW 15.3 H (12.1-15.1) % Plt Count 254 (130-400) 10^3/c mm MPV 8.5 (7.4-10.4) fL Neut % (Auto) 79.0 % Lymph % (Auto) 12.3 % [place] % (Auto) 7.0 % Eos % (Auto) 0.6 % Baso % (Auto) 0.4 % Neut # (Auto) 7.10 (1.8-7.7) 10^3/u L Lymph # (Auto) 1.1 (0.8-4.8) 10^3/u L [place] # (Auto) 0.6 (0.2-0.9) 10^3/u L Eos # (Auto) 0.1 (0.0-0.8) 10^3/u L Baso # (Auto) 0.0 (0.0-0.1) 10^3/u L Nucleated RBC % (a uto) 0 % Nucleated RBCs # 0.0 /100WBC PT 12.30 (12.1-14.9) SECO NDS INR 0.89 (0.8-1.2) APTT 29.7 (23.9-36.7) SECO NDS Sodium 128 L (136-145) mmol/L Potassium 3.6 (3.5-5.1) mmol/L Chloride 94 L (98-107) mmol/L Carbon Dioxide 25 (22-29) mmol/L Anion Gap 12.6 (5-19) BUN 10 (8-23) mg/dL Creatinine 0.9 (0.7-1.2) mg/dL GFR Calculation 84.2 L (90-130) mL/min Glucose 101 (65-115) mg/dL Calculated Osmolal ity 262 L (285-295) mOsm/k g Calcium 8.9 (8.5-10.5) mg/dL Total Bilirubin 0.6 (0.15-1.2) mg/dL AST 22 (0-40) U/L ALT 13 (0-41) U/L Alkaline Phosphata se 156 H (40-130) IU/L Troponin T Baselin e (0-15) ng/L Troponin T 120 Min ruby (0-15) ng/L Delta Troponin T (0-10) ABS# NT-Pro-B Natriuret Pep 1460 H (0-125) pg/mL Total Protein 6.0 L (6.6-8.7) g/dL Albumin 3.7 (3.5-5.2) g/dL Globulin 2.3 (1.3-4.6) g/dL Ethyl Alcohol < 10 (0-10) mg/dL 10/11/19 10/11/19 Range/Units 06:30 08:09 WBC (4.0-10.0) 10^3/ uL RBC (4.1-5.3) 10^6/u L Hgb (11.7-16.6) g/dL Hct (42.0-52.0) % MCV (80-94) fL MCH (28.0-34.0) pg MCHC (30.0-36.0) g/dL RDW (12.1-15.1) % Plt Count (130-400) 10^3/c mm MPV (7.4-10.4) fL Neut % (Auto) % Lymph % (Auto) % [place] % (Auto) % Eos % (Auto) % Baso % (Auto) % Neut # (Auto) (1.8-7.7) 10^3/u L Lymph # (Auto) (0.8-4.8) 10^3/u L [place] # (Auto) (0.2-0.9) 10^3/u L Eos # (Auto) (0.0-0.8) 10^3/u L Baso # (Auto) (0.0-0.1) 10^3/u L Nucleated RBC % (a uto) % Nucleated RBCs # /100WBC PT (12.1-14.9) SECO NDS INR (0.8-1.2) APTT (23.9-36.7) SECO NDS Sodium (136-145) mmol/L Potassium (3.5-5.1) mmol/L Chloride (98-107) mmol/L Carbon Dioxide (22-29) mmol/L Anion Gap (5-19) BUN (8-23) mg/dL Creatinine (0.7-1.2) mg/dL GFR Calculation (90-130) mL/min Glucose (65-115) mg/dL Calculated Osmolal ity (285-295) mOsm/k g Calcium (8.5-10.5) mg/dL Total Bilirubin (0.15-1.2) mg/dL AST (0-40) U/L ALT (0-41) U/L Alkaline Phosphata se (40-130) IU/L Troponin T Baselin e 47 H (0-15) ng/L Troponin T 120 Min ruby 42.45 H (0-15) ng/L Delta Troponin T -4.55 L (0-10) ABS# NT-Pro-B Natriuret Pep (0-125) pg/mL Total Protein (6.6-8.7) g/dL Albumin (3.5-5.2) g/dL Globulin (1.3-4.6) g/dL Ethyl Alcohol (0-10) mg/dL Discharge Plan Discharge Patient Disposition: Home Clinical Impression: Atherosclerotic heart disease of [place] coronary artery with other forms of angina pectoris, S/P CABG (coronary artery bypass graft), CKD (chronic kidney disease) stage 3, GFR 30-59 ml/min, Chronic hyponatremia, COPD (chronic obstructive pulmonary disease), Coronary artery disease Condition: Stable Prescriptions: Changed isosorbide mononitrate 60 mg tablet extended release 24 hr 90 mg PO QAM 90 Days Qty: 90 RF: 2 No Action nitroglycerin [Nitrostat] 0.4 mg tablet, sublingual 0.4 mg SUBLINGUAL Q5M PRN (Reason: Chest Pain) RF: 0 magnesium oxide 420 mg tablet 400 mg PO DAILY RF: 0 Norvasc 5 mg tablet 5 mg PO DAILY 90 Days Qty: 90 RF: 2 atorvastatin 40 mg tablet 40 mg PO DAILY 90 Days Qty: 90 RF: 2 Coreg 3.125 mg tablet 3.125 mg PO BID 90 Days Qty: 180 RF: 2 losartan 100 mg tablet 100 mg PO DAILY 90 Days Qty: 90 RF: 2 potassium chloride [Klor-Con 10] 10 mEq tablet extended release 10 meq PO DAILY Qty: 90 RF: 2 Pacerone 200 mg tablet 200 mg PO DAILY 90 Days Qty: 90 RF: 2 prednisone 5 mg tablet 5 mg PO DAILY RF: 0 clobetasol 0.05 % cream 1 applic TOPICAL BID PRN (Reason: unknown) RF: 0 clopidogrel 75 mg tablet 75 mg PO DAILY RF: 0 amlodipine 10 mg tablet 10 mg PO DAILY Qty: 30 RF: 0 Daily-Wild Tablet 1 tab PO DAILY RF: 0 Vitamin B-1 100 mg Tablet 100 mg PO DAILY RF: 0 folic acid 1 mg Tablet 1 mg PO DAILY RF: 0 Singulair 10 mg Tablet 10 mg PO DAILY RF: 0 hydralazine 50 mg tablet See Rx Instructions .ROUTE .COMPLEX RF: 0 furosemide 40 mg tablet 40 mg PO DAILY 30 Days Qty: 30 RF: 0 pantoprazole 40 mg tablet,delayed release (DR/EC) 40 mg PO DAILY 30 Days Qty: 30 RF: 0 Discharge Orders: Discharge Order (Routine); Ordered 10/11/19 Ordered By: Malik Byrd Referrals: Chioma Quezada [Primary Care Provider] - Discharge Diet: Usual diet Discharge Activity: Limit activity as instructed Activity Restrictions/Additional Instructions: Follow-up with cardiology within 1 week. Increase your Imdur to 90 mg daily. If you have recurrence of chest pain return to the emergency room for reevaluation. Coding Level of Care Code ED Ultrasound Technologist Sonographer for Nereydag Fwd Exam Comprehensive
[2019-10-11] MEDS: lidocaine 2% viscous 15 ML, aluminum-mag hydrox-simethicon 30 ML, sucralfate oral liq 1 GM PO (06:45)
[2019-10-11 06:54] VITALS: BP 143/69; PULSE 65; RESP 23; O2SAT 98
[2019-10-11 06:55] LABS: Basophils % 0.4 %; Eosinophils # 0.1 10^3/uL (0.0-0.8); Eosinophils % 0.6 %; Hematocrit 36.9 % (42.0-52.0); Hemoglobin 12.2 g/dL (11.7-16.6); Lymphocytes # 1.1 10^3/uL (0.8-4.8); Lymphocytes % 12.3 %; Mean Corpuscular HGB Conc 33.1 g/dL (30.0-36.0); Mean Corpuscular Hemoglobin 29.8 pg (28.0-34.0); Mean Corpuscular Volume 90.2 fL (80-94); Mean Platelet Volume 8.5 fL (7.4-10.4); Monocytes # 0.6 10^3/uL (0.2-0.9); Nucleated Red Blood Cells % 0 %; Platelet Count 254 10^3/cmm (130-400); Red Blood Count 4.09 10^6/uL (4.1-5.3); Red Cell Distribution Width 15.3 % (12.1-15.1)
[2019-10-11 07:12] LABS: Troponin(5th) Baseline 47 ng/L (0-15)
[2019-10-11 07:21] LABS: Alanine Aminotransferase 13 U/L (0-41); Albumin Level 3.7 g/dL (3.5-5.2); Alkaline Phosphatase 156 IU/L (40-130); Anion Gap 12.6 (5-19); Aspartate Amino Transferase 22 U/L (0-40); Blood Urea Nitrogen 10 mg/dL (8-23); Calcium 8.9 mg/dL (8.5-10.5); Carbon Dioxide 25 mmol/L (22-29); Chloride 94 mmol/L (98-107); Globulin 2.3 g/dL (1.3-4.6); Glomerular Filtration Rate 84.2 mL/min (90-130); Glucose 101 mg/dL (65-115); INR 0.89 (0.8-1.2); NT Pro B Type Natriuretic Pept 1460 pg/mL (0-125); Osmolality Calculated 262 mOsm/kg (285-295); Partial Thromboplastin Time 29.7 SECONDS (23.9-36.7); Potassium 3.6 mmol/L (3.5-5.1); Sodium 128 mmol/L (136-145); Total Bilirubin 0.6 mg/dL (0.15-1.2)
[2019-10-11 07:26] LABS: Alcohol Level < 10 mg/dL (0-10)
[2019-10-11 07:30] VITALS: BP 143/69; PULSE 64; RESP 22; O2SAT 99
--- NOTE | 2019-10-11 08:13 | ECG_ITS ---
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 Measurements Intervals [place] Rate: 65 P: 66 CA: 256 QRS: 67 QRSD: 105 T: 24 QT: 439 QTc: 458 Interpretive Statements SINUS RHYTHM WITH FIRST DEGREE AV BLOCK NONSPECIFIC T-WAVE ABNORMALITY Compared to ECG 10/11/2019 06:20:42 Intraventricular conduction delay no longer present Prolonged QT interval no longer present T-wave abnormality still present Electronically Signed On 10-11-2019 12:48:36 CDT by Jeri Diallo M.D. [id number]
[2019-10-11 08:37] LABS: Troponin 5 2HR 42.45 ng/L (0-15)
[2019-10-11 08:38] LABS: Troponin 5 2HR Delta -4.55 ABS# (0-10)
[2019-10-11 10:16] VITALS: BP 161/87; PULSE 66; RESP 18; O2SAT 98
== END 2019-10-11 10:18 | disposition home or self-care (01) ==
PROVIDERS: Emergency Medicine; Emergency Provider Family Medicine; PCP Nurse Practitioner Family
DX: I25.118 Atherosclerotic heart disease of native coronary artery with other forms of angina pectoris (principal); Z95.1 Presence of aortocoronary bypass graft; E87.1 Hypo-osmolality and hyponatremia; J44.9 Chronic obstructive pulmonary disease, unspecified; I13.0 Hypertensive heart and chronic kidney disease with heart failure and stage 1 through stage 4 chronic kidney disease, or unspecified chronic kidney disease; N18.3 Chronic kidney disease, stage 3 (moderate); I50.9 Heart failure, unspecified; I48.20 Chronic atrial fibrillation, unspecified; E78.5 Hyperlipidemia, unspecified; Z89.511 Acquired absence of right leg below knee; F17.210 Nicotine dependence, cigarettes, uncomplicated; Z79.899 Other long term (current) drug therapy
CPT/HCPCS: 12345; 71045; 80053; 80307; 83880; 84484; 85025; 85610; 85730; 93005; 99283; 99284

== ENCOUNTER 2020-07-15 17:22 | Inpatient (IN) | payer MEDICARE, MEDICAID, SELFPAY ==
--- NOTE | 2020-07-15 17:53 | XRR_ITS ---
PROCEDURE INFORMATION: Exam: XR Left Ankle Exam date and time: 07/15/2020 6:21 PM Age: 69 years old Clinical indication: Pain; Ankle; Left; Prior surgery; Surgery date: 6+ months; Additional info: Ankle pain TECHNIQUE: Imaging protocol: XR Left ankle. Views: 1 or 2 views. COMPARISON: No relevant prior studies available. FINDINGS: Bones/joints: Bones are moderately osteopenic. There is no evidence of fracture or destructive lesion. Soft tissues: Normal. Other findings: There is a semi opaque dressing on the posterior aspect of the heel. There is no specific finding to suggest active osteomyelitis. XR/XR ankle LT 2V [id number] IMPRESSION: Osteopenia. No acute abnormality.
--- NOTE | 2020-07-15 17:53 | XRR_ITS ---
PROCEDURE INFORMATION: Exam: XR Left Foot Exam date and time: 07/15/2020 5:56 PM Age: 69 years old Clinical indication: Pain; Foot; Left; Prior surgery; Surgery date: 6+ months; Additional info: Cellulitis TECHNIQUE: Imaging protocol: XR Left foot. Views: 1 or 2 views. COMPARISON: No relevant prior studies available. FINDINGS: Bones/joints: Bones are diffusely osteopenic. There are postsurgical changes of transmetatarsal amputation of the left foot. The ends of the amputations are sharp without evidence for active osteomyelitis. Soft tissues: There is mild soft tissue swelling. XR/XR foot LT 2V [id number] IMPRESSION: Postsurgical changes of amputation. No specific sign of osteomyelitis.
--- NOTE | 2020-07-15 17:54 | XRR_ITS ---
PROCEDURE INFORMATION: Exam: XR Chest Exam date and time: 07/15/2020 6:00 PM Age: 69 years old Clinical indication: Shortness of breath; Prior surgery; Surgery date: 6+ months; Additional info: Reduced breath sounds TECHNIQUE: Imaging protocol: XR of the chest. Views: 1 view. COMPARISON: No relevant prior studies available. FINDINGS: Lungs: Visualized portions of the lungs are clear. There is no pulmonary vascular congestion. Pleural spaces: Unremarkable. No pleural effusion. No pneumothorax. Heart/Mediastinum: The heart is mildly enlarged. Bones/joints: Sternotomy wires and mediastinal surgical clips are present, consistent with previous coronary arterial bypass grafting. XR/XR chest 1V portable [id number] IMPRESSION: No acute infiltrate.
[2020-07-15 17:55] VITALS: BP 107/64; PULSE 76; RESP 18; TEMP 37.1; O2SAT 91; BMI 28.8
--- NOTE | 2020-07-15 17:59 | ECG_ITS ---
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 Measurements Intervals [place] Rate: 70 P: 265 RI: 175 QRS: 53 QRSD: 105 T: 97 QT: 460 QTc: 498 Interpretive Statements Sinus rhythm POSSIBLE LEFT ATRIAL ENLARGEMENT [-0.1mV P WAVE IN V1/V2] MODERATE ST DEPRESSION [0.05+ mV ST DEPRESSION] PROLONGED QT INTERVAL Compared to ECG 10/11/2019 07:49:05 Ectopic atrial rhythm now present ST (T wave) deviation now present Prolonged QT interval now present Sinus rhythm no longer present First degree AV block no longer present T-wave abnormality no longer present Electronically Signed On 07-15-2020 19:23:15 CDT by Sunny Frye M.D. [id number]
[2020-07-15 18:24] VITALS: BP 157/64; PULSE 71; RESP 18; O2SAT 91
[2020-07-15 18:31] VITALS: BP 142/62; PULSE 72; RESP 17; TEMP 36.8; O2SAT 99
[2020-07-15 19:22] LABS: Basophils # 0.1 10^3/uL (0.0-0.1); Basophils % 0.5 %; Eosinophils % 0.3 %; Hematocrit 34.2 % (42.0-52.0); Hemoglobin 11.2 g/dL (11.7-16.6); Lymphocytes # 1.1 10^3/uL (0.8-4.8); Lymphocytes % 8.7 %; Mean Corpuscular HGB Conc 32.7 g/dL (30.0-36.0); Mean Corpuscular Hemoglobin 30.8 pg (28.0-34.0); Mean Platelet Volume 8.8 fL (7.4-10.4); Monocytes # 0.7 10^3/uL (0.2-0.9); Monocytes % 5.8 %; Neutrophils # 10.11 10^3/uL (1.8-7.7); Neutrophils % 82.7 %; Nucleated Red Blood Cells % 0 %; Platelet Count 372 10^3/cmm (130-400); Red Blood Count 3.64 10^6/uL (4.1-5.3); White Blood Count 12.2 10^3/uL (4.0-10.0)
--- NOTE | 2020-07-15 19:26 | PC.NURSE ---
Pt resting in bed, states he is here because he drinks and smokes too much IV placed, labs and urine drawn and taken to lab, pt refuses registered nurse cardiac, states he want a nurse in here with me to keep me company. Pt is in no distress, politely explained I will check on him again soon and need to go see my other patients,
[2020-07-15 19:39] LABS: Add Urine Microscopic? NO; Charge for UA Resulting for Rev
[2020-07-15 19:42] LABS: Lactate (Lactic Acid level) 1.1 mmol/L (0.5-2.2)
[2020-07-15 19:46] LABS: Troponin(5th) Baseline 70 ng/L (0-15)
[2020-07-15 19:52] LABS: Amphetamines Screen Urine Negative (Negative); Barbiturates Screen Urine Negative (Negative); Benzodiazepines Screen Urine Positive (Negative); Cocaine Screen Urine Negative (Negative); Opiate Screen Urine Positive (Negative); PCP Screen Urine Negative (Negative); THC Screen Urine Negative (Negative)
[2020-07-15 19:54] LABS: Alanine Aminotransferase 9 U/L (0-41); Albumin Level 2.6 g/dL (3.5-5.2); Alkaline Phosphatase 87 IU/L (40-130); Blood Urea Nitrogen 12 mg/dL (8-23); Calcium 7.4 mg/dL (8.5-10.5); Carbon Dioxide 25 mmol/L (22-29); Chloride 96 mmol/L (98-107); Globulin 2.4 g/dL (1.3-4.6); Glomerular Filtration Rate 112.5 mL/min (90-130); Glucose 99 mg/dL (65-115); Lipase 127 U/L (13-60); NT Pro B Type Natriuretic Pept 10823 pg/mL (0-125); Osmolality Calculated 268 mOsm/kg (285-295); Sodium 129 mmol/L (136-145); Total Bilirubin 0.4 mg/dL (0.15-1.2)
[2020-07-15 19:56] LABS: Alcohol Level < 10 mg/dL (0-10); Anion Gap 11.7 (5-19); Aspartate Amino Transferase 19 U/L (0-40); Potassium 3.7 mmol/L (3.5-5.1)
--- NOTE | 2020-07-15 19:59 | ECG_ITS ---
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 Measurements Intervals [place] Rate: 71 P: 64 NC: 173 QRS: 62 QRSD: 102 T: 74 QT: 435 QTc: 475 Interpretive Statements SINUS RHYTHM Compared to ECG 07/15/2020 18:32:59 T-wave abnormality now present ST (T wave) deviation no longer present Prolonged QT interval no longer present Electronically Signed On 07-16-2020 22:01:15 CDT by Sunny Frye M.D. [id number]
[2020-07-15 20:01] VITALS: BP 174/78; PULSE 75; RESP 16; TEMP 37.1; O2SAT 99
[2020-07-15 20:01] LABS: Bilirubin Urine 1+ (Negative); Blood Urine Neg (Negative); Glucose Urine UA Norm (Normal); Ketones Urine Negative (Negative); Leukocyte Esterase Urine Negative (Negative); Nitrate Urine Negative (Negative); Protein Urine Neg (Negative); Specific Gravity, Urine 1.005 (1.005-1.030); Urine Appearance Clear (CLEAR); Urine Color Yellow (Yellow); Urobilinogen Urine 1 mg/dL (Negative); pH Urine 5 (5-7)
--- NOTE | 2020-07-15 21:04 | PC.NURSE ---
Pt adult brief changed, large stool noted, bed changed.
--- NOTE | 2020-07-15 21:04 | PC.NURSE ---
Several futile attempts to place patient on environmental monitoring technician, pt continually refuses.
[2020-07-15] MEDS: FUROsemide 10 mg/mL SDV 4mL 40 MG IVP (21:24)
[2020-07-15 21:30] VITALS: BP 148/90; PULSE 80; RESP 17; O2SAT 99
[2020-07-15 22:04] LABS: Troponin 5 2HR 49.17 ng/L (0-15)
--- NOTE | 2020-07-15 23:16 | W.ED.GENADLT ---
HPI - General Adult General: Chief complaint: General Medical Stated complaint: EDEMA Time Seen by Provider: 07/15/20 17:38 History of Present Illness: HPI narrative: The patient is a 77-year-old male just discharged from outside facility today after being treated for left foot cellulitis. He says he drank alcohol and still does not feel well and needs to be admitted. 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 He does not have diabetes. He is swollen in his arms and they are oozing fluid soaking through his shirt. Denies chest pain and shortness of breath but says he does not feel well. Relieving factors: none Exacerbating factors: none Associated symptoms: Reports weakness; Deny chest pain, confusion, cough, dyspnea, fevers/chills, headache(s), nausea, rash or vomiting Review of Systems General: Reports: 10 or more systems reviewed and unremarkable except in HPI and below Const: Reports: fatigue Eyes: Denies: change in vision, blurry vision or eye redness ENMT: Denies: throat pain, swelling of lips/tongue, ear or mastoid pain or nasal congestion Card: Reports: edema; Denies: chest pain Resp: Denies: dyspnea GI: Denies: nausea or vomiting : Denies: flank pain, urinary frequency or urinary urgency Musc: Denies: neck pain, back pain, extremity pain, joint pain, joint redness, limited range of motion or muscle weakness Skin/Breast: Denies: rash, pruritus, erythema, skin pain or skin tenderness Neuro: Denies: headache(s), numbness in extremities, weakness in extremities, sensory changes, difficulty walking, dizziness, confusion or Slurred speech present Psych: Denies: anxiety or depression Endo: Denies: polyuria All/Imm: Denies: urticaria, throat swelling or tongue swelling [facility] ED PFSH: Medical History (Updated 07/15/20 @ 23:19 by Tucker Sol MD) Alcohol abuse ASHD (arteriosclerotic heart disease) Atherosclerotic heart disease of [place] coronary artery with other forms of angina pectoris Benign essential hypertension with target blood pressure below 140/90 Chronic episodic atrial fibrillation Chronic hyponatremia CKD (chronic kidney disease) stage 3, GFR 30-59 ml/min Congestive heart failure COPD (chronic obstructive pulmonary disease) GERD (gastroesophageal reflux disease) Hyperlipidemia Microcytic anemia Peripheral vascular disease Tobacco abuse Surgical History (System 07/02/20 @ 15:41 by Maricruz Webster) S/P CABG (coronary artery bypass graft) S/P cardiac catheterization S/P tonsillectomy Status post below knee amputation of right lower extremity Family History (System 07/02/20 @ 15:41 by Maricruz Webster) Mother Hypertension CAD (coronary artery disease) Social History (System 07/02/20 @ 15:41 by Maricruz Webster) Smoking and tobacco status: current every day smoker cigarettes Packs smoked per day: 2 Alcohol intake: current Alcohol intake frequency: 3 or more drinks per day Alcohol type: beer Desire information about alcohol rehabilitation?: No Physical Exam Const: COMMON NORMALS: no acute distress, average body habitus, patient oriented x3, no limitations, healthy appearing, alert and well nourished GENERAL APPEARANCE: cooperative, comfortable, well kempt and well developed ORIENTATION/CONSCIOUSNESS: Yes awake, Yes oriented to person, Yes oriented to place and Yes oriented to time HENMT: COMMON NORMALS: normocephalic, external ears normal and Normal external nose present HEAD & SCALP: normal to inspection and normocephalic NOSE: Normal external nose present EXTERNAL EAR: Yes external ears normal MOUTH: Normal oral and palatal mucosa present THROAT: posterior oropharynx normal Eye: COMMON NORMALS: Equal, round and reactive pupils present and EOMs intact bilaterally GENERAL EYE: appearance normal, both eyes and all related structures PUPIL: Yes Equal, round and reactive pupils present Neck/C-Spine: COMMON NORMALS: full ROM, no lymphadenopathy, no meningeal signs and no JVD GENERAL: Yes normal visual inspection Lymph: LYMPHATIC: no lymphadenopathy noted Chest: COMMONS NORMALS: normal inspection of the chest and normal palpation of entire chest wall Resp: COMMON NORMALS: normal respiratory effort, No retractions, No use of accessory muscles, clear to auscultation bilaterally and percussion normal EFFORT & INSPECTION: Yes able to speak in complete sentences AUSCULTATION: clear to auscultation bilaterally PERCUSSION: percussion normal Cardio: COMMON NORMALS: no JVD, regular rate, regular rhythm, S1 normal heart sound present, S2 normal heart sound present and Peripheral pulses 2+ throughout RATE: regular rate RHYTHM: regular rhythm HEART SOUNDS: S1 normal heart sound present and S2 normal heart sound present PERIPHERAL PULSES: Peripheral pulses 2+ throughout GI: COMMON NORMALS: Normal to inspection, nondistended, normoactive bowel sounds present, Soft to palpation, non-tender and no masses INSPECTION: Yes normal to inspection PALPATION: Yes Soft to palpation : COMMON NORMALS: Yes no CVA tenderness BLADDER/KIDNEY EXAM: Yes no CVA tenderness Back/Pelvis: COMMON NORMALS: no CVA tenderness, thoracic and lumbar spine normal to inspection, no thoracic nor lumbar tenderness and thoraco-lumbar ROM normal Extremity: COMMON NORMALS: normal to inspection, full ROM, capillary refill normal, no joint enlargement and no pedal edema NARRATIVE EXTREMITY EXAM: He has a right BKA which looks good and his left transmetatarsal amputation he clearly has been treated recently for a cellulitis but it is clearly much improved than it has been. Mild erythema but no significant cellulitis noted. His upper extremities bilaterally are quite edematous and weeping fluid. 2-3+ edema in them. GENERAL: Yes normal exam except as noted Neuro: COMMON NORMALS: patient oriented x3, CN's II-XII intact bilaterally, moves all extremities, no focal motor deficits, no sensory deficits noted and gait normal SENSORIUM/ORIENTATION: Yes alert, Yes oriented to person, Yes oriented to place and Yes oriented to time MENINGEAL SIGNS: Yes no meningeal signs Psych: COMMON NORMALS: mental status grossly normal, Normal thought process present, cooperative, normal affect and speech normal APPEARANCE: Yes well kempt ATTITUDE: Yes calm SPEECH: Yes normal speech THOUGHT PROCESS: Normal thought process present Skin: COMMON NORMALS: no rashes or lesions noted GENERAL SKIN EXAM: no rashes or lesions noted Course Vital Signs: Vital signs: Vital Signs Temperature 98.7 F 07/15/20 17:55 Pulse Rate 71 07/15/20 18:24 Respiratory Rate 18 07/15/20 18:24 Blood Pressure 157/64 07/15/20 18:24 Pulse Oximetry 91 07/15/20 18:24 MDM - General Adult MDM Narrative: Medical decision making narrative: The patient comes in after being discharged from a different facility earlier today. He is quite fluid overloaded and his upper extremities are weeping with fluid and 3+ pitting edema. proBNP is also elevated and sodium 129. He was given 40 of Lasix and will be admitted to the CSU. Dr. Campos accepts. Lab Data: Labs: Lab Results 05/07/15/20 07/15/20 Range/Units 19:01 19:01 19:01 WBC 12.2 H (4.0-10.0) 10^3/ uL RBC 3.64 L (4.1-5.3) 10^6/u L Hgb 11.2 L (11.7-16.6) g/dL Hct 34.2 L (42.0-52.0) % MCV 94.0 (80-94) fL MCH 30.8 (28.0-34.0) pg MCHC 32.7 (30.0-36.0) g/dL RDW 17.0 H (12.1-15.1) % Plt Count 372 (130-400) 10^3/c mm MPV 8.8 (7.4-10.4) fL Neut % (Auto) 82.7 % Lymph % (Auto) 8.7 % [place] % (Auto) 5.8 % Eos % (Auto) 0.3 % Baso % (Auto) 0.5 % Neut # (Auto) 10.11 H (1.8-7.7) 10^3/u L Lymph # (Auto) 1.1 (0.8-4.8) 10^3/u L [place] # (Auto) 0.7 (0.2-0.9) 10^3/u L Eos # (Auto) 0.0 (0.0-0.8) 10^3/u L Baso # (Auto) 0.1 (0.0-0.1) 10^3/u L Nucleated RBC % (a uto) 0 % Nucleated RBCs # 0.0 /100WBC Sodium 129 L (136-145) mmol/L Potassium 3.7 (3.5-5.1) mmol/L Chloride 96 L (98-107) mmol/L Carbon Dioxide 25 (22-29) mmol/L Anion Gap 11.7 (5-19) BUN 12 (8-23) mg/dL Creatinine 0.7 (0.7-1.2) mg/dL GFR Calculation 112.5 (90-130) mL/min Glucose 99 (65-115) mg/dL Calculated Osmolal ity 268 L (285-295) mOsm/k g Lactate 1.1 (0.5-2.2) mmol/L Calcium 7.4 L (8.5-10.5) mg/dL Total Bilirubin 0.4 (0.15-1.2) mg/dL AST 19 (0-40) U/L ALT 9 (0-41) U/L Alkaline Phosphata se 87 (40-130) IU/L Troponin T Baselin e (0-15) ng/L Troponin T 120 Min [place] (0-15) ng/L Delta Troponin T (0-10) ABS# NT-Pro-B Natriuret Pep 91895 H (0-125) pg/mL Total Protein 5.0 L (6.6-8.7) g/dL Albumin 2.6 L (3.5-5.2) g/dL Globulin 2.4 (1.3-4.6) g/dL Lipase 127 H (13-60) U/L Urine Color (Yellow) Urine Appearance (CLEAR) Urine pH (5-7) Ur Specific Gravit y (1.005-1.030) Urine Protein (Negative) Urine Glucose (UA) (Normal) Urine Ketones (Negative) Urine Blood (Negative) Urine Nitrate (Negative) Urine Bilirubin (Negative) Urine Urobilinogen (Negative) mg/dL Ur Leukocyte Ольга ase (Negative) Urine Opiates Scre en (Negative) ng/mL Ur Barbiturates Sc reen (Negative) ng/mL Ur Phencyclidine S crn (Negative) ng/mL Ur Amphetamines Sc reen (Negative) ng/mL U Benzodiazepines Scrn (Negative) ng/mL Urine Cocaine Scre en (Negative) ng/mL U Marijuana (THC) Screen (Negative) ng/mL Ethyl Alcohol < 10 (0-10) mg/dL 07/15/20 07/15/20 07/15/20 Range/Units 19:01 19:27 19:27 WBC (4.0-10.0) 10^3/ uL RBC (4.1-5.3) 10^6/u L Hgb (11.7-16.6) g/dL Hct (42.0-52.0) % MCV (80-94) fL MCH (28.0-34.0) pg MCHC (30.0-36.0) g/dL RDW (12.1-15.1) % Plt Count (130-400) 10^3/c mm MPV (7.4-10.4) fL Neut % (Auto) % Lymph % (Auto) % [place] % (Auto) % Eos % (Auto) % Baso % (Auto) % Neut # (Auto) (1.8-7.7) 10^3/u L Lymph # (Auto) (0.8-4.8) 10^3/u L [place] # (Auto) (0.2-0.9) 10^3/u L Eos # (Auto) (0.0-0.8) 10^3/u L Baso # (Auto) (0.0-0.1) 10^3/u L Nucleated RBC % (a uto) % Nucleated RBCs # /100WBC Sodium (136-145) mmol/L Potassium (3.5-5.1) mmol/L Chloride (98-107) mmol/L Carbon Dioxide (22-29) mmol/L Anion Gap (5-19) BUN (8-23) mg/dL Creatinine (0.7-1.2) mg/dL GFR Calculation (90-130) mL/min Glucose (65-115) mg/dL Calculated Osmolal ity (285-295) mOsm/k g Lactate (0.5-2.2) mmol/L Calcium (8.5-10.5) mg/dL Total Bilirubin (0.15-1.2) mg/dL AST (0-40) U/L ALT (0-41) U/L Alkaline Phosphata se (40-130) IU/L Troponin T Baselin e 70 H (0-15) ng/L Troponin T 120 Min [place] (0-15) ng/L Delta Troponin T (0-10) ABS# NT-Pro-B Natriuret Pep (0-125) pg/mL Total Protein (6.6-8.7) g/dL Albumin (3.5-5.2) g/dL Globulin (1.3-4.6) g/dL Lipase (13-60) U/L Urine Color Yellow (Yellow) Urine Appearance Clear (CLEAR) Urine pH 5 (5-7) Ur Specific Gravit y 1.005 (1.005-1.030) Urine Protein Neg (Negative) Urine Glucose (UA) Norm (Normal) Urine Ketones Negative (Negative) Urine Blood Neg (Negative) Urine Nitrate Negative (Negative) Urine Bilirubin 1+ H (Negative) Urine Urobilinogen 1 H (Negative) mg/dL Ur Leukocyte Ольга ase Negative (Negative) Urine Opiates Scre en Positive H (Negative) ng/mL Ur Barbiturates Sc reen Negative (Negative) ng/mL Ur Phencyclidine S crn Negative (Negative) ng/mL Ur Amphetamines Sc reen Negative (Negative) ng/mL U Benzodiazepines Scrn Positive H (Negative) ng/mL Urine Cocaine Scre en Negative (Negative) ng/mL U Marijuana (THC) Screen Negative (Negative) ng/mL Ethyl Alcohol (0-10) mg/dL 07/15/20 Range/Units 21:27 WBC (4.0-10.0) 10^3/ uL RBC (4.1-5.3) 10^6/u L Hgb (11.7-16.6) g/dL Hct (42.0-52.0) % MCV (80-94) fL MCH (28.0-34.0) pg MCHC (30.0-36.0) g/dL RDW (12.1-15.1) % Plt Count (130-400) 10^3/c mm MPV (7.4-10.4) fL Neut % (Auto) % Lymph % (Auto) % [place] % (Auto) % Eos % (Auto) % Baso % (Auto) % Neut # (Auto) (1.8-7.7) 10^3/u L Lymph # (Auto) (0.8-4.8) 10^3/u L [place] # (Auto) (0.2-0.9) 10^3/u L Eos # (Auto) (0.0-0.8) 10^3/u L Baso # (Auto) (0.0-0.1) 10^3/u L Nucleated RBC % (a uto) % Nucleated RBCs # /100WBC Sodium (136-145) mmol/L Potassium (3.5-5.1) mmol/L Chloride (98-107) mmol/L Carbon Dioxide (22-29) mmol/L Anion Gap (5-19) BUN (8-23) mg/dL Creatinine (0.7-1.2) mg/dL GFR Calculation (90-130) mL/min Glucose (65-115) mg/dL Calculated Osmolal ity (285-295) mOsm/k g Lactate (0.5-2.2) mmol/L Calcium (8.5-10.5) mg/dL Total Bilirubin (0.15-1.2) mg/dL AST (0-40) U/L ALT (0-41) U/L Alkaline Phosphata se (40-130) IU/L Troponin T Baselin e (0-15) ng/L Troponin T 120 Min [place] 49.17 H (0-15) ng/L Delta Troponin T -20.83 L (0-10) ABS# NT-Pro-B Natriuret Pep (0-125) pg/mL Total Protein (6.6-8.7) g/dL Albumin (3.5-5.2) g/dL Globulin (1.3-4.6) g/dL Lipase (13-60) U/L Urine Color (Yellow) Urine Appearance (CLEAR) Urine pH (5-7) Ur Specific Gravit y (1.005-1.030) Urine Protein (Negative) Urine Glucose (UA) (Normal) Urine Ketones (Negative) Urine Blood (Negative) Urine Nitrate (Negative) Urine Bilirubin (Negative) Urine Urobilinogen (Negative) mg/dL Ur Leukocyte [place]льга ase (Negative) Urine Opiates Scre en (Negative) ng/mL Ur Barbiturates Sc reen (Negative) ng/mL Ur Phencyclidine S crn (Negative) ng/mL Ur Amphetamines Sc reen (Negative) ng/mL U Benzodiazepines Scrn (Negative) ng/mL Urine Cocaine Scre en (Negative) ng/mL U Marijuana (THC) Screen (Negative) ng/mL Ethyl Alcohol (0-10) mg/dL Discharge Plan Discharge Admit Provider: Marlena Campos Clinical Impression: Fluid overload Condition: Stable Coding Level of Care Code ED Corrugated Box Machine Operator for Martina Lara
[2020-07-16] VITALS (13 sets, daily range): BP systolic 95–171; BP diastolic 54–92; PULSE 63–78; RESP 14–22; TEMP 36.4–36.9; O2SAT 94–96
[2020-07-16 01:47] LABS: Troponin 5 6HR 62.52 ng/L (0-15)
[2020-07-16 01:48] LABS: Troponin 5 6HR Delta -7.48 ng/L (0-12)
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
--- NOTE | 2020-07-16 04:32 | PC.NURSE ---
Around 0230: Assess patient upon admission to CSU from ED. Patient has multiple skin issues. Cleaned skin tears with soap and water, dressed with optifoams. Patient incontinent of stool and urine, redness and maceration noted to perineal area. Cleaned with soap and water, barrier cream applied. Around 0300: Patient retaining urine. Notified Dr. Campos. Orders received to insert indwelling urinary catheter. 2 attempts to insert catheter, unsuccessful. Dr. Campos notified.
--- NOTE | 2020-07-16 05:03 | PM.HP ---
Providers/Chief Complaint Admitting Physician: Marlena Campos MD Primary Care Provider: Chioma Quezada Chief Complaint: EDEMA History of Present Illness Rudolph Calhoun is a 69 year old male with a past medical history of CAD status post CABG x1, status post drug-eluting stent to left circumflex, history of atrial fibrillation on amiodarone and aspirin low-dose, peripheral vascular disease, right BKA, left TMA, chronic smoker, COPD not oxygen dependent, hypertension, hyperlipidemia, GERD, diastolic heart failure, ethanol abuse, chronic hyponatremia baseline sodium is 129, CKD stage III who presents to the emergency room after having been discharged from a hospital in [place] yesterday after being treated for cellulitis. Patient states that he fell approximately 1 week ago after which his left leg started to swell up, it was red and painful, he went to the local hospital, he was treated for cellulitis with IV vancomycin according to the patient. Discharged yesterday with oral antibiotics, however he has not had a chance to pick up worker his medication. Does not recall the name of this antibiotic, per review of home medications this appears to be Clindamycin. He returned to the ER today as he feels he was discharged too early, at a baseline he is in a wheelchair, however is able to manage some pivots and transfers, he is unable to do that and feels like he is not back at his baseline functional status yet. Additionally he has noted that his upper and lower extremities were swollen and there were spontaneous abrasions over his upper extremities which were leaking some fluid. Denies any fever. Denies any chest pain dyspnea or palpitations at this time. Review of Systems General: Reports: 10 or more systems reviewed and unremarkable except in HPI and below Const: Denies: fever(s), chills or body aches Eyes: Denies: change in vision, blurry vision or photophobia ENMT: Reports: hoarseness; Denies: throat pain, enlarged tonsils, odynophagia or nasal congestion Card: Denies: chest pain, palpitations, irregular heart rhythm, edema, swelling of feet/ankles, lightheadedness, pre-syncope, dyspnea on exertion or orthopnea Resp: Denies: dyspnea, productive cough, non-productive cough, wheezing, stridor, pain on inspiration, change in phlegm color, hemoptysis or chest congestion GI: Denies: abdominal pain, nausea, vomiting, hematemesis, coffee ground emesis, dysphagia, heartburn, diarrhea, constipation, GI cramping, change in stool character, hematochezia or melena : Denies: flank pain, dysuria, urinary frequency, urinary urgency, urinary hesitancy or hematuria Musc: Denies: neck pain, back pain, extremity pain, joint swelling, joint warmth or deformity Neuro: Denies: headache(s), numbness in extremities, weakness in extremities, sensory changes, difficulty walking, frequent falls, dizziness, vertigo, behavioral changes, Slurred speech present or seizure-like activity Psych: Denies: anxiety, depression, suicidal ideation or homicidal ideation Endo: Denies: polyuria, polydipsia, tired all the time, cold intolerance or hot flashes [place]/Lymph: Denies: easy bruising or easy bleeding Medications/Allergies Home Medications Medication Instructions Recorded Confirmed Last Taken Type magnesium oxide 420 mg tablet 400 mg PO DAILY 03/27/19 07/15/20 08/20/19 History nitroglycerin 0.4 mg sublingual 0.4 mg SUBLINGUAL Q5M PRN 03/27/19 07/15/20 Unknown History tablet furosemide 40 mg PO DAILY 30 Days #30 tab 07/18/19 07/15/20 08/20/19 Rx pantoprazole 40 mg PO DAILY 30 Days #30 tab 07/18/19 07/15/20 08/20/19 Rx amiodarone 200 mg tablet 200 mg PO DAILY 90 Days #90 tab 07/25/19 07/15/20 08/20/19 Rx atorvastatin 40 mg tablet 40 mg PO DAILY 90 Days #90 tab 07/25/19 07/15/20 Unknown Rx carvedilol 3.125 mg tablet 3.125 mg PO BID 90 Days #180 tab 07/25/19 07/15/20 08/20/19 Rx losartan 100 mg tablet 100 mg PO DAILY 90 Days #90 tab 07/25/19 07/15/20 08/20/19 Rx potassium chloride 10 mEq 10 meq PO DAILY #90 tab 07/25/19 07/15/20 08/20/19 Rx tablet,extended release clobetasol 1 applic TOPICAL BID PRN 08/20/19 07/15/20 Unknown History clopidogrel 75 mg PO DAILY 08/20/19 07/15/20 Unknown History folic acid 1 mg PO DAILY 08/20/19 07/15/20 Unknown History hydralazine 50 mg PO DAILY 08/20/19 07/15/20 08/20/19 History montelukast [Singulair] 10 mg PO DAILY 08/20/19 07/15/20 Unknown History multivitamin [Daily-Wild] 1 tab PO DAILY 08/20/19 07/15/20 Unknown History prednisone 5 mg PO DAILY 08/20/19 07/15/20 08/20/19 History 5 mg thiamine HCl (vitamin B1) [Vitamin 100 mg PO DAILY 08/20/19 07/15/20 Unknown History B-1] amlodipine 5 mg tablet See Rx Instructions .ROUTE 04/18/20 07/15/20 Unknown Rx .COMPLEX #30 tab clindamycin HCl 300 mg PO TID 07/15/20 07/15/20 Unknown History doxycycline hyclate 100 mg PO BID 07/15/20 07/15/20 Unknown History isosorbide mononitrate 90 mg PO DAILY 07/15/20 07/15/20 Unknown History Allergies Allergy/AdvReac Type Severity Reaction Status Date / Time ciprofloxacin [From Cipro] Allergy Unknown Unknown Verified 07/02/20 15:41 cortisone Allergy Unknown Unknown Verified 07/02/20 15:41 hydrochlorothiazide Allergy Unknown Unknown Verified 07/02/20 15:41 lisinopril Allergy Unknown Unknown Verified 07/02/20 15:41 Sulfa (Sulfonamide Allergy Unknown Unknown Verified 07/02/20 15:41 Antibiotics) PFSH Acute PFSH: Medical History (Updated 07/16/20 @ 05:13 by aMrlena Campos MD) Alcohol abuse ASHD (arteriosclerotic heart disease) Atherosclerotic 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 Benign essential hypertension with target blood pressure below 140/90 Chronic episodic atrial fibrillation Chronic hyponatremia CKD (chronic kidney disease) stage 3, GFR 30-59 ml/min Congestive heart failure COPD (chronic obstructive pulmonary disease) GERD (gastroesophageal reflux disease) Hyperlipidemia Microcytic anemia Peripheral vascular disease Tobacco abuse Surgical History S/P CABG (coronary artery bypass graft) S/P cardiac catheterization S/P tonsillectomy Status post below knee amputation of right lower extremity Family History Mother Hypertension CAD (coronary artery disease) Social History Smoking and tobacco status: current every day smoker cigarettes Packs smoked per day: 2 Alcohol intake: current Alcohol intake frequency: 3 or more drinks per day Alcohol type: beer Desire information about alcohol rehabilitation?: No Vitals/I&O/Wt Last Vital Signs Temp 97.5 F L 07/16/20 04:34 Pulse 68 07/16/20 04:34 Resp 19 H 07/16/20 04:34 BP 171/92 07/16/20 04:34 Pulse Ox 95 07/16/20 04:34 Weight last 48 hrs Weight 102.058 kg Physical Exam Narrative: EXAM NARRATIVE: General: No acute distress, AO x3 HEENT: PERRLA, pupils bilaterally equal and reactive, pallors not present Chest: Normal vesicular breath sounds, scattered crackles to auscultation B/L , equal good air entry bilaterally CVS: S1-S2 regular, no murmurs, no tachycardia, no gallops, no rubs Abdomen: Soft, nontender, no organomegaly, bowel sounds present Neuro: No focal deficits, no facial deformity, AO x3, power 5/5 in all limbs Extremities: mild swelling over B/L LE stumps and upper extremities, few weeping abrasions noted over B/L upper extremities Data : 07/15/20 19:01 07/15/20 19:01 Micro: Microbiology 07/15/20 20:09 Blood Culture - Preliminary Blood SPECIMEN COLLECTED 07/15/20 19:01 Blood Culture - Preliminary Blood SPECIMEN COLLECTED A&P Assessment and plan (1) Acute on chronic diastolic CHF (congestive heart failure): Last known EF 65% from stress test one year ago likely with diastolic dysfunction Currently with CHF exacerbation, BNP elevated, B/L upper and LE swelling , has received 40mg iv lasix in the ER, continue lasix 40mg iv q12h monitor I/O, daily weights Status: Acute (2) Alcohol abuse: Watch for signs of withdrawal Status: Acute (3) Hyponatremia: chronic, currently at baseline Status: Acute (4) CKD (chronic kidney disease) stage 3, GFR 30-59 ml/min: Cr currently at baseline Status: Acute Additional A&P Information Recent cellulitis, no current signs of infection, continue recent po abx , obtain records DVT ppx: lovenox Attestations Medical Necessity Statement*: observation admission, anticipate less than Coding Level of Care Code Acute Manager Legal for Chg Fwd Diagnoses Acute on chronic diastolic CHF (congestive heart failure) I50.33 Alcohol abuse F10.10 Hyponatremia E87.1 CKD (chronic kidney disease) stage 3, GFR 30-59 ml/min N18.3
[2020-07-16] MEDS: enoxaparin 40 mg/0.4 mL Syringe SUBCUT (06:16)
[2020-07-16] MEDS: acetaminophen 325 mg Tablet 650 MG PO (06:39)
--- NOTE | 2020-07-16 09:30 | PC.NURSE ---
Physician notification Discussed to doctor that Pt is on morning losartan,hydralazine,imdur,coreg,amiodarone,norvasc.can we stagger and re-schedule some of these meds today? Received verbal order readback to hold norvasc and continue to administer the meds as ordered. Monitor BP.
[2020-07-16] MEDS: pantoprazole DR 40 mg Tablet PO (09:49)
[2020-07-16] MEDS: doxycycline 100 mg Tablet PO (09:49)
[2020-07-16] MEDS: magnesium oxide 400 mg tablet PO (09:49)
[2020-07-16] MEDS: clopidogrel 75 mg Tablet PO (09:49)
[2020-07-16] MEDS: folic acid 1 mg Tablet PO (09:49)
[2020-07-16] MEDS: predniSONE 5 mg Tablet PO (09:49)
[2020-07-16] MEDS: atorvastatin 40 mg Tablet PO (09:49)
[2020-07-16] MEDS: thiamine 100 mg Tablet PO (09:49)
[2020-07-16] MEDS: hyDRALAzine 50 mg Tablet PO (10:07)
[2020-07-16] MEDS: amiodarone 200 mg Tablet PO (10:08)
[2020-07-16] MEDS: isosorbide mononitrate ER 60 mg Tablet 90 MG PO (10:08)
[2020-07-16] MEDS: losartan 50 mg Tablet 100 MG PO (10:10)
[2020-07-16] MEDS: carvedilol 3.125 mg Tablet PO (10:14)
[2020-07-16] MEDS: FUROsemide 10 mg/mL SDV 4mL 40 MG IVP (10:17)
[2020-07-16 11:39] LABS: Blood Urea Nitrogen 12 mg/dL (8-23); Calcium 7.5 mg/dL (8.5-10.5); Carbon Dioxide 24 mmol/L (22-29); Chloride 98 mmol/L (98-107); Creatine Phosphokinase 44 U/L (39-308); Glomerular Filtration Rate 112.5 mL/min (90-130); Glucose 91 mg/dL (65-115); Osmolality Calculated 273 mOsm/kg (285-295); Sodium 132 mmol/L (136-145)
[2020-07-16 12:14] LABS: Anion Gap 13.6 (5-19); Potassium 3.6 mmol/L (3.5-5.1)
--- NOTE | 2020-07-16 12:14 | PC.CHAP ---
Pastoral Care Encounter/Spiritual Assessment Type of Contact [xx] Declined delivery associate visit [] Patient/Family/Request visit [] Outpatient visit [] Follow-up visit [] Physician referral [] Code/Alert [] Routine visit [] Staff referral [] Actively dying [] Patient sleeping [] Family support [] [] Out of room [] Palliative care [] [] Receiving care in room [] Pre-surgical visit [] Trauma [] Long length of stay [] ICU visit [] Other: Relational/Emotional Strength [] Patient feels connected with others/family/visitors/staff [] Distress [] Loneliness/isolation [] Abandonment Spirituality of Patient [] Person of Lisa [] Attends Faith of their Lisa [] Believes in Prayer [] Reads Bible or Yarsanism materials [] There are Spiritual issues to be addressed Manager Body Interventions [] Prayer [] Active listening [] Non-anxious presence [] Spiritual/emotional support [] Crisis/trauma care [] Spiritual counseling [] Bereavement support [] Provided bereavement packet [] Provided Bible/devotional materials [] Provided toy/stuffed animal, coloring book to patient or family member [] Provided Communion [] Anointing/[place] [] Salvation [] Completed spiritual assessment [] Other: Impact on Illness or Injury [] Angry [] Fearful [] Anxious [] Often cries [] Exhaustion [] Unable to work [] Unable to attend presybeterian [] Unable to walk/stand [] Unable to read [] Unable to drive [] Unable to eat/drink [] Unable to sleep [] Unable to be with family [] Patient intubated [] Other: Summary Patient declined visit. Time spent with patient 1 minute
--- NOTE | 2020-07-16 16:30 | PC.NURSE ---
Physician notification Talked to doctor on the phone. BP-95/54. pt reports of being weak and feeling blah . can we hold the evening coreg scheduled at 6 pm? He telephone order to hold the coreg this evening.
[2020-07-16] MEDS: cefepime 2,000 MG in sodium chloride 0.9% (plus) 50 ML 100 MG IV ×2 (16:46→23:03)
[2020-07-16] MEDS: dexamethasone 4 mg/mL INJ IVP (17:55)
--- NOTE | 2020-07-16 18:10 | PC.PT ---
Patient initially agreeable to PT evaluation, began instruction in suggested bed exercise program due to patient complaints of weakness, but patient then declined out of bed activities, will reattempt evaluation tomorrow.
[2020-07-16] MEDS: vancomycin 1,250 MG/250 ML PIGGYBACK 200 MG IV (18:11)
--- NOTE | 2020-07-16 20:30 | PM.PN ---
Subjective Subjective: Interval history: Feeling generally weak. Due to generalized weakness, also generalized muscle tenderness, having trouble walking which is already made difficult by prior amputations. States that overall his swelling has come down. He no longer is weeping from his arms and legs. Vitals/I&O/Wt Last Vital Signs Temp 98.1 F 07/16/20 19:18 Pulse 66 07/16/20 19:18 Resp 22 H 07/16/20 19:18 BP 112/61 07/16/20 19:18 Pulse Ox 94 07/16/20 19:18 07/16/20 07/16/20 07/16/20 06:59 14:59 22:59 Intake Total 480 / 480 300 / 780 Output Total 300 / 300 130 / 130 850 / 980 Balance -300 / -300 350 / 350 -550 / -200 Weight last 48 hrs Weight 94.376 kg Weight 102.058 kg Physical Exam Const: COMMON NORMALS: no acute distress, patient oriented x3 and alert GENERAL APPEARANCE: frail appearing ORIENTATION/CONSCIOUSNESS: Yes awake HENMT: COMMON NORMALS: oropharynx normal Neck/C-Spine: COMMON NORMALS: no JVD Resp: COMMON NORMALS: normal respiratory effort and clear to auscultation bilaterally AUSCULTATION: clear to auscultation bilaterally Cardio: COMMON NORMALS: no JVD, regular rhythm, S1 normal heart sound present, S2 normal heart sound present and No murmurs present (Cardio) RHYTHM: regular rhythm HEART SOUNDS: S1 normal heart sound present and S2 normal heart sound present GI: COMMON NORMALS: Normal to inspection, nondistended, normoactive bowel sounds present, Soft to palpation and non-tender PALPATION: Yes Soft to palpation Extremity: COMMON NORMALS: no joint enlargement GENERAL: Yes edema (Trace left lower extremity edema) OTHER: Right BKA, left forefoot amputation. Neuro: COMMON NORMALS: patient oriented x3 and moves all extremities SENSORIUM/ORIENTATION: Yes alert Skin: GENERAL SKIN EXAM: ecchymosis (Small ecchymoses in several locations on elbow leave. Venous stasis change) LESIONS: lesion noted (Chronic skin discoloration, scarring, as well as multiple ulcerations, skin) Skin tears in various stages of healing over bilateral upper extremities. RASHES: other (Minimal erythema of left lower extremity below the knee.) OTHER: Left heel blister/pressure ulcer. Data : 07/15/20 19:01 07/16/20 01:32 Micro: Microbiology 07/16/20 16:55 Blood Culture - Preliminary Blood SPECIMEN COLLECTED 07/16/20 17:00 Blood Culture - Preliminary Blood SPECIMEN COLLECTED 07/15/20 20:09 Blood Culture - Preliminary Blood Gram Negative Rods Gram positive cocci 07/15/20 19:01 Blood Culture - Preliminary Blood Gram Negative Rods Gram positive cocci A&P Assessment and plan (1) Bacteremia: Possible bacteremia with gram-positive cocci, gram-negative rods. 2/4 bottles each, 3/4 bottles positive. Difficult to say whether this is contamination. He has recurrent problems with skin inflammation, cellulitis, currently without noticeable cellulitis on upper extremity, but with several skin tears/ulcers, chronic changes with cornification, dry, scaly skin. Blood cultures redrawn. Empirically started on antibiotic coverage with cefepime, vancomycin. Would suspect skin likely would be the entry point in case of true bacteremia, and with mixed infection. Do not see open wounds on left lower extremity, although the skin is thin and fragile, few bruises, small ecchymoses. Blister on the heel from chronic pressure sore. On chronic steroid. Status: Acute (2) Acute on chronic diastolic CHF (congestive heart failure): Assess TTE. Continued on Lasix, however, overall appears to been diuresed well, with minimal edema on lower extremity. Will decrease Lasix to 40 mg IV once daily. Records requested from recent hospitalization at [facility]. He is generally weak. Requested CK to assess for possible rhabdomyolysis. Statin myopathy may be other consideration. No control he may have active infection contributing to his symptoms given possible bacteremia as above. monitor I/O, daily weights Status: Acute (3) Alcohol abuse: Watch for signs of withdrawal Status: Acute (4) Hyponatremia: chronic, currently at baseline Status: Acute (5) CKD (chronic kidney disease) stage 3, GFR 30-59 ml/min: Cr currently at baseline Status: Acute (6) Hypotension: Blood pressure soft today. Discontinued amlodipine. Softer still after receiving his usual medications. With generalized weakness, possible active infection, with CHF, with chronic steroid use, suspect adrenal insufficiency. Given dose of Decadron. Additionally hold carvedilol. Reassess blood pressures. May need to hold more of his medications. Status: Acute Additional A&P Information Generalized weakness: With history of amputation with RLE prosthesis, left forefoot amputation. Obtain PT assessment. BPH: Catheter was requested but could not be passed, coud? could not be passed either. Slow stream. For now continues to use urinal. Bladder scan as needed in case concern of retention. Recent cellulitis: Had been continued on doxycycline. For antibiotics changed as above due to suspected bacteremia. DVT ppx: lovenox Attestations Medical Necessity Statement*: Continue admission for assessment management of bacteremia, generalized weakness, in the setting of CHF exacerbation in a gentleman with chronic steroid use. Coding Level of Care Code Acute Industrial Hygiene Technician for Martina Lara Diagnoses Bacteremia R78.81 Acute on chronic diastolic CHF (congestive heart failure) I50.33 Alcohol abuse F10.10 Hyponatremia E87.1 CKD (chronic kidney disease) stage 3, GFR 30-59 ml/min N18.3 Hypotension I95.9
--- NOTE | 2020-07-16 21:17 | PC.NURSE ---
Around 2100: Patient requesting medication for sleep/anxiety. Notified Dr. Cruz. Orders received, see MAY.
[2020-07-16] MEDS: ipratropium-albuterol 3 mL Neb INHALATION (21:39)
[2020-07-16] MEDS: trazodone 50 mg Tablet PO (22:50)
[2020-07-17] VITALS (16 sets, daily range): BP systolic 133–150; BP diastolic 68–79; PULSE 59–77; RESP 17–26; TEMP 36.7–36.9; O2SAT 91–99
[2020-07-17] MEDS: vancomycin 1,250 MG/250 ML PIGGYBACK 200 MG IV ×2 (00:34→15:04)
[2020-07-17] MEDS: ipratropium-albuterol 3 mL Neb INHALATION ×4 (03:20→20:27)
[2020-07-17] MEDS: enoxaparin 40 mg/0.4 mL Syringe SUBCUT (05:36)
[2020-07-17 05:45] LABS: Basophils % 0.1 %; Hematocrit 26.3 % (42.0-52.0); Hemoglobin 8.6 g/dL (11.7-16.6); Lymphocytes # 0.6 10^3/uL (0.8-4.8); Mean Corpuscular HGB Conc 32.7 g/dL (30.0-36.0); Mean Corpuscular Hemoglobin 30.8 pg (28.0-34.0); Mean Corpuscular Volume 94.3 fL (80-94); Mean Platelet Volume 8.8 fL (7.4-10.4); Monocytes # 0.2 10^3/uL (0.2-0.9); Monocytes % 3.1 %; Neutrophils # 6.23 10^3/uL (1.8-7.7); Neutrophils % 87.5 %; Nucleated Red Blood Cells % 0 %; Platelet Count 326 10^3/cmm (130-400); Red Blood Count 2.79 10^6/uL (4.1-5.3); Red Cell Distribution Width 16.9 % (12.1-15.1); White Blood Count 7.1 10^3/uL (4.0-10.0)
[2020-07-17 06:33] LABS: Alanine Aminotransferase 7 U/L (0-41); Albumin Level 1.8 g/dL (3.5-5.2); Alkaline Phosphatase 69 IU/L (40-130); Anion Gap 10.6 (5-19); Aspartate Amino Transferase 13 U/L (0-40); Blood Urea Nitrogen 15 mg/dL (8-23); Carbon Dioxide 24 mmol/L (22-29); Chloride 101 mmol/L (98-107); Globulin 2.7 g/dL (1.3-4.6); Glomerular Filtration Rate 96.4 mL/min (90-130); Glucose 122 mg/dL (65-115); Osmolality Calculated 276 mOsm/kg (285-295); Potassium 3.6 mmol/L (3.5-5.1); Sodium 132 mmol/L (136-145); Total Bilirubin 0.2 mg/dL (0.15-1.2); Total Protein 4.5 g/dL (6.6-8.7)
--- NOTE | 2020-07-17 07:00 | USCV_ITS ---
Rudolph Calhoun Age: 69 Gender: M : 1950 Exam Date: 07/17/2020 09:53 Ordering Phys: London Esposito MD Technologist: Rocio Grijalva [place] [facility] [place]: CHF, bacteremia BP: 135 / 68 HR: 73 Rhythm: Sinus Technical Quality: Technically difficult study MEASUREMENTS (Male / Female) Normal Values 2D ECHO LV Chamber Size 4.0 cm RV Chamber Size 2.5 cm LVOT Diameter 2.0 cm LV Ejection Fraction MOD 2C 72.6 % LV Ejection Fraction 2C AL 72.7 % LA Width 3.0 cm LA Height 6.5 cm RA Width 2.8 cm RA Height 5.7 cm DOPPLER AV Peak Velocity 139.0 cm/s LVOT Peak Velocity 96.0 cm/s AV Area Cont Eq vti 2.2 cm squared AV Area Cont Eq pk 2.1 cm squared MV Area PHT 3.0 cm squared Mitral E to A Ratio 1.1 MV E' Velocity 39.0 cm/s Mitral E to MV E' Ratio 10.4 Mitral E to LV E' Lateral Ratio 9.0 Mitral E to LV E' Septal Ratio 12.2 TV Peak E Velocity 60.0 cm/s Right Atrial Pressure 3.0 mmHg FINDINGS Left Ventricle Normal left ventricular size and systolic function, EF 71 %. No regional wall motion abnormalities. Right Ventricle The right ventricle is normal in size and function. Right Atrium The right atrium is normal in size. Left Atrium The left atrium is normal in size. Mitral Valve Trace mitral valve regurgitation. Aortic Valve No gross abnormalities noted Tricuspid Valve Trace tricuspid valve regurgitation. Pulmonic Valve No gross abnormalities noted Pericardium Normal pericardium without effusion. Aorta Normal ascending aorta dimension. CONCLUSIONS Normal left ventricular size and systolic function, EF 71 %. No regional wall motion abnormalities. Normal chamber sizes. Trace of mitral and tricuspid regurgitation. There is no pericardial effusion. There are no intracardiac masses. Comparison with the previous study is difficult because of the difference in the technical quality. Dr Karmen Real MD [facility] (Electronically Signed) Final Date: 17 Jul 2020 11:09 S
[2020-07-17] MEDS: cefepime 2,000 MG in sodium chloride 0.9% (plus) 50 ML 100 MG IV ×3 (08:09→23:42)
[2020-07-17] MEDS: FUROsemide 10 mg/mL SDV 4mL 40 MG IVP (08:10)
[2020-07-17] MEDS: losartan 50 mg Tablet 100 MG PO (08:11)
[2020-07-17] MEDS: folic acid 1 mg Tablet PO (08:21)
[2020-07-17] MEDS: atorvastatin 40 mg Tablet PO (08:21)
[2020-07-17] MEDS: clopidogrel 75 mg Tablet PO (08:21)
[2020-07-17] MEDS: predniSONE 5 mg Tablet PO (08:21)
[2020-07-17] MEDS: pantoprazole DR 40 mg Tablet PO (08:22)
[2020-07-17] MEDS: magnesium oxide 400 mg tablet PO (08:32)
--- NOTE | 2020-07-17 09:23 | PC.NURSE ---
pt wants bath tonight
[2020-07-17] MEDS: amiodarone 200 mg Tablet PO (10:00)
[2020-07-17] MEDS: thiamine 100 mg Tablet PO (10:07)
[2020-07-17] MEDS: isosorbide mononitrate ER 60 mg Tablet 90 MG PO (12:57)
--- NOTE | 2020-07-17 14:30 | PC.NURSE ---
IV cath is leaking IV cath is removed. Called E.r to get an ultrasound guided IV.
--- NOTE | 2020-07-17 15:00 | PC.NURSE ---
release of info pt stated juanpablo forde is his dpoa. he has a record and is okay to talk to him on the phone. updated juanpablo on this number provided [phone]. per juanpablo he wants pt to go to a rehab. we will talk to the case mgt tomorrow and informed in the morning.
--- NOTE | 2020-07-17 16:00 | PC.NURSE ---
wound dressings on left amputated foot applied optifoam dressing, covered with kerlix and wrap with aris bandage. left heel floated.
--- NOTE | 2020-07-17 21:17 | PM.PN ---
Subjective Subjective: Interval history: Today he is feeling a bit stronger. Some superficial tender spots in his left leg are improving. No weeping or drainage. Vitals/I&O/Wt Last Vital Signs Temp 98.0 F 07/17/20 19:20 Pulse 76 07/17/20 20:32 Resp 19 H 07/17/20 20:32 BP 135/72 07/17/20 19:20 Pulse Ox 93 07/17/20 20:32 07/17/20 07/17/20 07/17/20 06:59 14:59 22:59 Intake Total 300 / 1080 410 / 410 540 / 950 Output Total 475 / 1455 500 / 500 Balance -175 / -375 -90 / -90 540 / 450 Weight last 48 hrs Weight 95.708 kg Weight 95.98 kg Weight 94.376 kg Physical Exam Const: COMMON NORMALS: no acute distress, patient oriented x3 and alert GENERAL APPEARANCE: frail appearing ORIENTATION/CONSCIOUSNESS: Yes awake HENMT: COMMON NORMALS: oropharynx normal Neck/C-Spine: COMMON NORMALS: no JVD Resp: COMMON NORMALS: normal respiratory effort and clear to auscultation bilaterally AUSCULTATION: clear to auscultation bilaterally Cardio: COMMON NORMALS: no JVD, regular rhythm, S1 normal heart sound present, S2 normal heart sound present and No murmurs present (Cardio) RHYTHM: regular rhythm HEART SOUNDS: S1 normal heart sound present and S2 normal heart sound present GI: COMMON NORMALS: Normal to inspection, nondistended, normoactive bowel sounds present, Soft to palpation and non-tender PALPATION: Yes Soft to palpation Extremity: COMMON NORMALS: no joint enlargement GENERAL: Yes edema (Trace left lower extremity edema) OTHER: Right BKA, left forefoot amputation. Neuro: COMMON NORMALS: patient oriented x3 and moves all extremities SENSORIUM/ORIENTATION: Yes alert Skin: GENERAL SKIN EXAM: ecchymosis (Small ecchymoses in several locations on elbow leave. Venous stasis change) LESIONS: lesion noted (Chronic skin discoloration, scarring, as well as multiple ulcerations, skin) RASHES: other (Minimal erythema of left lower extremity below the knee.) OTHER: Left heel blister/pressure ulcer. Data : 07/17/20 05:11 07/17/20 05:11 Micro: Microbiology 07/16/20 16:55 Blood Culture - Preliminary Blood NEGATIVE TO DATE 07/16/20 17:00 Blood Culture - Preliminary Blood NEGATIVE TO DATE 07/15/20 20:09 Blood Culture - Preliminary Blood Gram Negative Rods Coagulase negativ staphylococc 07/15/20 19:01 Blood Culture - Preliminary Blood Gram Negative Rods Coagulase negativ staphylococc A&P Assessment and plan (1) Bacteremia: Leukocytosis resolved. Antibiotics, coagulase-negative staph in blood culture. Repeat blood cultures prior negative. Follow-up results. Continue antibiotics. Given recent cellulitis, unresponsiveness likely will image with CT. He is agreeable with plan. Would suspect skin likely would be the entry point in case of true bacteremia, and with mixed infection. Do not see open wounds on left lower extremity, although the skin is thin and fragile, few bruises, small ecchymoses. Blister on the heel from chronic pressure sore. On chronic steroid. Do not see blood cultures collected from [facility] records. At [facility] received vancomycin for cellulitis, then transition to clindamycin and discharged. Status: Acute (2) Acute on chronic diastolic CHF (congestive heart failure): TTE with normal ejection fraction. Continue IV Lasix at reduced dose currently 40 mg IV daily. Monitor volume status, renal function. He is generally weak. CK normal. Treat bacteremia as above. monitor I/O, daily weights Status: Acute (3) Alcohol abuse: Watch for signs of withdrawal Status: Acute (4) Hyponatremia: chronic, currently at baseline Status: Acute (5) CKD (chronic kidney disease) stage 3, GFR 30-59 ml/min: Cr currently at baseline Status: Acute (6) Hypotension: Blood pressure better today with treatment of bacteremia, received stress dose steroids yesterday. Discontinued amlodipine. Hold carvedilol. Reassess blood pressures. May need to hold more of his medications. Status: Acute Additional A&P Information Generalized weakness: With history of amputation with RLE prosthesis, left forefoot amputation. Obtain PT assessment. He is absolutely adamant he will not consider correction facility despite his significant weakness, bacteremia that may require IV antibiotics after discharge, amputations, overall frailty. BPH: Catheter was requested but could not be passed, coud? could not be passed either. Slow stream. For now continues to use urinal. Bladder scan as needed in case concern of retention. Recent cellulitis: Vancomycin as above. DVT ppx: lovenox Attestations Medical Necessity Statement*: Continue admission for assessment of management of bacteremia after recent cellulitis, in a gentleman with congestive heart failure and multiple additional comorbidities. Coding Level of Care Code Acute Computer Numerical Control Machinist for Martina Fwd Diagnoses Bacteremia R78.81 Acute on chronic diastolic CHF (congestive heart failure) I50.33 Alcohol abuse F10.10 Hyponatremia E87.1 CKD (chronic kidney disease) stage 3, GFR 30-59 ml/min N18.3 Hypotension I95.9
[2020-07-18] VITALS (17 sets, daily range): BP systolic 116–150; BP diastolic 62–80; PULSE 61–71; RESP 16–22; TEMP 36.6–36.9; O2SAT 92–98
[2020-07-18] MEDS: vancomycin 1,250 MG/250 ML PIGGYBACK 200 MG IV ×2 (00:17→14:15)
[2020-07-18] MEDS: ipratropium-albuterol 3 mL Neb INHALATION ×4 (03:14→20:10)
[2020-07-18 03:41] LABS: Basophils % 0.4 %; Eosinophils # 0.1 10^3/uL (0.0-0.8); Eosinophils % 0.7 %; Hematocrit 26.8 % (42.0-52.0); Hemoglobin 8.5 g/dL (11.7-16.6); Lymphocytes # 1.1 10^3/uL (0.8-4.8); Lymphocytes % 13.5 %; Mean Corpuscular HGB Conc 31.7 g/dL (30.0-36.0); Mean Corpuscular Hemoglobin 30.9 pg (28.0-34.0); Mean Corpuscular Volume 97.5 fL (80-94); Mean Platelet Volume 8.7 fL (7.4-10.4); Monocytes # 0.6 10^3/uL (0.2-0.9); Monocytes % 7.1 %; Neutrophils # 6.51 10^3/uL (1.8-7.7); Neutrophils % 77.3 %; Nucleated Red Blood Cells % 0 %; Platelet Count 352 10^3/cmm (130-400); Red Blood Count 2.75 10^6/uL (4.1-5.3); Red Cell Distribution Width 16.9 % (12.1-15.1); White Blood Count 8.4 10^3/uL (4.0-10.0)
[2020-07-18 04:31] LABS: Alanine Aminotransferase 8 U/L (0-41); Albumin Level 2.1 g/dL (3.5-5.2); Alkaline Phosphatase 65 IU/L (40-130); Anion Gap 14.3 (5-19); Aspartate Amino Transferase 15 U/L (0-40); Blood Urea Nitrogen 17 mg/dL (8-23); Carbon Dioxide 22 mmol/L (22-29); Chloride 100 mmol/L (98-107); Globulin 2.3 g/dL (1.3-4.6); Glomerular Filtration Rate 96.4 mL/min (90-130); Glucose 102 mg/dL (65-115); Osmolality Calculated 278 mOsm/kg (285-295); Potassium 3.3 mmol/L (3.5-5.1); Sodium 133 mmol/L (136-145); Total Bilirubin 0.2 mg/dL (0.15-1.2); Total Protein 4.4 g/dL (6.6-8.7)
[2020-07-18] MEDS: enoxaparin 40 mg/0.4 mL Syringe SUBCUT (05:54)
--- NOTE | 2020-07-18 07:32 | PC.NURSE ---
pt wants bath tonight
--- NOTE | 2020-07-18 09:00 | CTR_ITS ---
PROCEDURE INFORMATION: Exam: CT Left Lower Extremity Without Contrast; Lower Leg Exam date and time: 07/18/2020 9:08 AM Age: 69 years old Clinical indication: Pain; Lower leg; Left; Prior surgery; Surgery date: <1 month; Surgery type: Toes amputated; Additional info: Sepsis, bacteremia, recent cellulitis, assess for abscess TECHNIQUE: Imaging protocol: CT of the Left lower extremity without contrast was performed. Exam focused on the lower leg. Radiation optimization: All CT scans at this facility use at least one of these dose optimization techniques: automated exposure control; mA and/or kV adjustment per patient size (includes targeted exams where dose is matched to clinical indication); or iterative reconstruction. COMPARISON: MRI Leg w/o LEFT* [id number] 12/02/2018 2:42 PM RADIATION DOSE METRICS: Total DLP (mGy-cm): 1408.21 FINDINGS: Bones/joints: Severe osteopenia. Small joint effusion in the knee. Degenerative change. Healing fracture of the proximal fibula. Remodeling deformities in the incompletely visualized 2nd and 3rd metatarsals. Soft tissues: Skin thickening, poorly defined subcutaneous fluid, and subcutaneous edema, consistent with reported history of cellulitis. No localized soft tissue abscess is identified. Multiple subcutaneous calcifications, the largest measuring 11 x 5 mm. Vasculature: Vascular calcification. CT/CT lower leg LT wo con* [id number] IMPRESSION: 1. Skin thickening, poorly defined subcutaneous fluid, and subcutaneous edema, consistent with reported history of cellulitis. 2. No localized soft tissue abscess is identified. 3. Additional findings as described above. Radiation Dose CTDIVOL = (mGy): DLP = 1408.21 (mGy-cm)
[2020-07-18] MEDS: magnesium oxide 400 mg tablet PO (09:09)
[2020-07-18] MEDS: losartan 50 mg Tablet 100 MG PO (09:09)
[2020-07-18] MEDS: clopidogrel 75 mg Tablet PO (09:09)
[2020-07-18] MEDS: thiamine 100 mg Tablet PO (09:09)
[2020-07-18] MEDS: pantoprazole DR 40 mg Tablet PO (09:09)
[2020-07-18] MEDS: predniSONE 5 mg Tablet PO (09:09)
[2020-07-18] MEDS: folic acid 1 mg Tablet PO (09:09)
[2020-07-18] MEDS: FUROsemide 10 mg/mL SDV 4mL 40 MG IVP (09:41)
[2020-07-18] MEDS: cefepime 2,000 MG in sodium chloride 0.9% (plus) 50 ML 100 MG IV ×3 (09:42→23:34)
[2020-07-18] MEDS: amiodarone 200 mg Tablet PO (10:51)
[2020-07-18] MEDS: atorvastatin 40 mg Tablet PO (10:51)
[2020-07-18] MEDS: potassium chloride ER 20 mEq Tablet 40 MEQ PO (13:09)
[2020-07-18] MEDS: isosorbide mononitrate ER 60 mg Tablet PO (14:28)
[2020-07-18] MEDS: hyDRALAzine 25 mg Tablet PO (14:28)
--- NOTE | 2020-07-18 20:25 | P.PN_ITS ---
Subjective Subjective: Interval history: Overall he is slightly better, but says he is not in the best shape . Painful spots on his leg with improvement. Coughing up a bit of phlegm but states it is white. Not short of breath. Vitals/I&O/Wt Last Vital Signs Temp 98.2 F 07/18/20 19:48 Pulse 66 07/18/20 20:15 Resp 18 07/18/20 20:10 BP 130/69 07/18/20 19:48 Pulse Ox 96 07/18/20 20:10 07/18/20 07/18/20 07/18/20 06:59 14:59 22:59 Intake Total 300 / 1250 650 / 650 300 / 950 Output Total 625 / 1125 1200 / 1200 100 / 1300 Balance -325 / 125 -550 / -550 200 / -350 Weight last 48 hrs Weight 96.87 kg Weight 95.708 kg Weight 95.98 kg Physical Exam Const: COMMON NORMALS: no acute distress, patient oriented x3 and alert GENERAL APPEARANCE: frail appearing ORIENTATION/CONSCIOUSNESS: Yes awake OTHER: Pleasant, conversant, in better spirits. HENMT: COMMON NORMALS: oropharynx normal Neck/C-Spine: COMMON NORMALS: no JVD Resp: COMMON NORMALS: normal respiratory effort and clear to auscultation bilaterally AUSCULTATION: clear to auscultation bilaterally Cardio: COMMON NORMALS: no JVD, regular rhythm, S1 normal heart sound present, S2 normal heart sound present and No murmurs present (Cardio) RHYTHM: regular rhythm HEART SOUNDS: S1 normal heart sound present and S2 normal heart sound present GI: COMMON NORMALS: Normal to inspection, nondistended, normoactive bowel sounds present, Soft to palpation and non-tender PALPATION: Yes Soft to palpation Extremity: COMMON NORMALS: no joint enlargement GENERAL: Yes edema (Trace left lower extremity edema) OTHER: Right BKA, left forefoot amputation. Neuro: COMMON NORMALS: patient oriented x3 and moves all extremities SENSORIUM/ORIENTATION: Yes alert Skin: GENERAL SKIN EXAM: ecchymosis (Small ecchymoses in several locations on elbow leave. Venous stasis change) LESIONS: lesion noted (Chronic skin discoloration, scarring, as well as multiple ulcerations, skin) RASHES: other (Minimal erythema of left lower extremity below the knee.) OTHER: Left heel blister/pressure ulcer. Data : 07/18/20 03:21 07/18/20 03:21 Micro: Microbiology 07/15/20 19:01 Blood Culture - Final Blood Klebsiella pneumoniae Coagulase negativ staphylococc 07/15/20 20:09 Blood Culture - Final Blood Klebsiella pneumoniae Coagulase negativ staphylococc 07/16/20 16:55 Blood Culture - Preliminary Blood NEGATIVE TO DATE 07/16/20 17:00 Blood Culture - Preliminary Blood NEGATIVE TO DATE A&P Assessment and plan (1) Bacteremia: Reviewed with him results of left leg CT. Some subcutaneous calcifications noted suspect related to recent cellulitis, appears to still have some resolving cellulitis. No abscess. Continue IV antibiotics. Follow-up repeat culture, so far negative. Blood culture from 07/15 with Klebsiella, and gram-positive organism pending identification. Discussed with him. Depending on results consider whether additional evaluation may be needed for possibility of endocarditis, although this appears to be less likely and possibly simple bacteremia following cellulitis. Discussed with him consideration of need for IV antibiotic after discharge although duration may depend on additional findings. He is adamant would prefer to have antibiotic infusions at home. Discussed with him placement of PICC line which may be considered depending again on culture results within the next 1-2 days in case repeat culture remains negative. Would suspect skin likely would be the entry point in case of true bacteremia, and with mixed infection. Do not see open wounds on left lower extremity, although the skin is thin and fragile, few bruises, small ecchymoses. Blister on the heel from chronic pressure sore. On chronic steroid. Do not see blood cultures collected from [facility] records. At [facility] received vancomycin for cellulitis, then transition to clindamycin and discharged. Status: Acute (2) Acute on chronic diastolic CHF (congestive heart failure): TTE with normal ejection fraction. Continue IV Lasix at reduced dose currently 40 mg IV daily. Monitor volume status, renal function. Generalized weakness with some improvement compared to admission. We will not escalate diuretics further currently. Difficult to tell what is his dry weight. Repeat NT proBNP. CK normal. Treat bacteremia as above. monitor I/O, daily weights Status: Acute (3) Alcohol abuse: Watch for signs of withdrawal Status: Acute (4) Hyponatremia: chronic, currently at baseline Status: Acute (5) CKD (chronic kidney disease) stage 3, GFR 30-59 ml/min: Cr currently at baseline Status: Acute (6) Hypotension: Improved. Received stress dose of Decadron on 07/16. Continues on daily prednisone. Discontinued amlodipine. Hold carvedilol. Blood pressures early this morning as low as 116/67. We cut down his Imdur for now to 60 mg, hydralazine to 25 mg. However, please reassess blood pressures, and if rising, please resume prior doses of his CHF medications. Status: Acute Additional A&P Information Generalized weakness: With history of amputation with RLE prosthesis, left forefoot amputation. Continue mobilization with PT. He is absolutely adamant he will not consider [facility] facility despite his significant weakness, bacteremia that may require IV antibiotics after discharge, amputations, overall frailty. Would like to return home with home health, states [facility] would be okay. BPH: Catheter was requested but could not be passed, coud? could not be passed either. Slow stream. For now continues to use urinal. Bladder scan as needed in case concern of retention. When blood pressure is improves resume prostate medication. Recent cellulitis: Vancomycin as above. DVT ppx: lovenox Attestations Medical Necessity Statement*: Continue admission for assessment of management of bacteremia following recent cellulitis, resolving cellulitis, generalized weakness, hypotension. Coding Level of Care Code Acute Director Of Accounting for Martina Lara Diagnoses Bacteremia R78.81 Acute on chronic diastolic CHF (congestive heart failure) I50.33 Alcohol abuse F10.10 Hyponatremia E87.1 CKD (chronic kidney disease) stage 3, GFR 30-59 ml/min N18.3 Hypotension I95.9
[2020-07-19] VITALS (18 sets, daily range): BP systolic 129–159; BP diastolic 71–88; PULSE 67–88; RESP 16–19; TEMP 36.6–36.7; O2SAT 94–97
[2020-07-19] MEDS: vancomycin 1,250 MG/250 ML PIGGYBACK 250 MG IV (00:10)
[2020-07-19] MEDS: ipratropium-albuterol 3 mL Neb INHALATION ×4 (03:41→20:46)
[2020-07-19 04:40] LABS: Alanine Aminotransferase 10 U/L (0-41); Alkaline Phosphatase 65 IU/L (40-130); Aspartate Amino Transferase 14 U/L (0-40); Blood Urea Nitrogen 16 mg/dL (8-23); Calcium 7.3 mg/dL (8.5-10.5); Carbon Dioxide 23 mmol/L (22-29); Chloride 102 mmol/L (98-107); Globulin 2.9 g/dL (1.3-4.6); Glomerular Filtration Rate 112.5 mL/min (90-130); Glucose 89 mg/dL (65-115); NT Pro B Type Natriuretic Pept 6031 pg/mL (0-125); Osmolality Calculated 275 mOsm/kg (285-295); Sodium 132 mmol/L (136-145); Total Bilirubin 0.3 mg/dL (0.15-1.2); Total Protein 4.9 g/dL (6.6-8.7)
[2020-07-19] MEDS: enoxaparin 40 mg/0.4 mL Syringe SUBCUT (05:09)
[2020-07-19 05:13] LABS: Basophils # 0.1 10^3/uL (0.0-0.1); Basophils % 0.6 %; Eosinophils # 0.1 10^3/uL (0.0-0.8); Eosinophils % 1.3 %; Hematocrit 26.8 % (42.0-52.0); Hemoglobin 8.7 g/dL (11.7-16.6); Lymphocytes # 1.2 10^3/uL (0.8-4.8); Lymphocytes % 13.4 %; Mean Corpuscular HGB Conc 32.5 g/dL (30.0-36.0); Mean Corpuscular Volume 95.4 fL (80-94); Mean Platelet Volume 8.6 fL (7.4-10.4); Monocytes # 0.6 10^3/uL (0.2-0.9); Monocytes % 6.9 %; Neutrophils # 6.72 10^3/uL (1.8-7.7); Neutrophils % 76.8 %; Nucleated Red Blood Cells % 0 %; Platelet Count 403 10^3/cmm (130-400); Red Blood Count 2.81 10^6/uL (4.1-5.3); White Blood Count 8.7 10^3/uL (4.0-10.0)
[2020-07-19] MEDS: losartan 50 mg Tablet 100 MG PO (08:42)
[2020-07-19] MEDS: magnesium oxide 400 mg tablet PO (08:42)
[2020-07-19] MEDS: amiodarone 200 mg Tablet PO (08:43)
[2020-07-19] MEDS: clopidogrel 75 mg Tablet PO (08:43)
[2020-07-19] MEDS: atorvastatin 40 mg Tablet PO (08:43)
[2020-07-19] MEDS: predniSONE 5 mg Tablet PO (08:43)
[2020-07-19] MEDS: thiamine 100 mg Tablet PO (08:43)
[2020-07-19] MEDS: folic acid 1 mg Tablet PO (08:43)
[2020-07-19] MEDS: cefepime 2,000 MG in sodium chloride 0.9% (plus) 50 ML 100 MG IV (08:47)
--- NOTE | 2020-07-19 09:07 | PC.SOCIAL ---
IMM Updated Updated pt on Pg 2 IMM. No questions voiced. Provided pt a copy. Signed, dated, & timed copy in chart.
[2020-07-19] MEDS: FUROsemide 10 mg/mL SDV 4mL 40 MG IVP (09:39)
[2020-07-19] MEDS: pantoprazole DR 40 mg Tablet PO (10:59)
[2020-07-19] MEDS: isosorbide mononitrate ER 60 mg Tablet PO (10:59)
[2020-07-19] MEDS: hyDRALAzine 25 mg Tablet PO (10:59)
--- NOTE | 2020-07-19 11:20 | CTR_ITS ---
PROCEDURE INFORMATION: Exam: CT Abdomen And Pelvis With Contrast Exam date and time: 07/19/2020 1:21 PM Age: 69 years old Clinical indication: Other: Diarrhea, ; prior surgery; Surgery type: Multiple; Additional info: Diarrhea, possible sourec of infgection, gram negative bacte TECHNIQUE: Imaging protocol: Computed tomography of the abdomen and pelvis with contrast. Radiation optimization: All CT scans at this facility use at least one of these dose optimization techniques: automated exposure control; mA and/or kV adjustment per patient size (includes targeted exams where dose is matched to clinical indication); or iterative reconstruction. Contrast material: OMNI 300; Contrast volume: 95 ml; Contrast route: INTRAVENOUS (IV); COMPARISON: CR Hips Bilat 3-4v wwo Pelv [id number] 12/02/2018 9:45 AM RADIATION DOSE METRICS: Total DLP (mGy-cm): 1805.96 FINDINGS: Pleural spaces: There are moderate bilateral pleural effusions. There is bilateral lower lobe lung consolidation. Liver: Normal. No mass. Gallbladder and bile ducts: Normal. No calcified stones. No ductal dilation. Pancreas: Normal. No ductal dilation. Spleen: Normal. No splenomegaly. Adrenal glands: Normal. No mass. Kidneys and ureters: Normal. No hydronephrosis. Stomach and bowel: There is stool throughout the colon. No bowel obstruction. There is questionable wall thickening of the rectosigmoid colon versus underdistention as seen on coronal image 17. Appendix: No evidence of appendicitis. Intraperitoneal space: Unremarkable. No free air. No significant fluid collection. Vasculature: Unremarkable. No abdominal aortic aneurysm. Lymph nodes: Unremarkable. No enlarged lymph nodes. Urinary bladder: Unremarkable as visualized. Reproductive: Unremarkable as visualized. Bones/joints: There is old deformity of the L4 and L1 vertebral bodies. Degenerative change is identified in the spine. Soft tissues: There is soft tissue anasarca. Other findings: There is presacral fluid. CT/CT abdomen pelvis w con* [id number] IMPRESSION: There are moderate bilateral pleural effusions. There is bilateral lower lobe lung consolidation consistent with atelectasis and/or pneumonia. There is questionable colitis of the rectosigmoid colon versus underdistention.Clinical correlation is advised. Radiation Dose CTDIVOL = (mGy): DLP = 1805.96 (mGy-cm)
--- NOTE | 2020-07-19 11:43 | P.PN_ITS ---
Subjective Subjective: Interval history: No acute events overnight. Hospital course appreciated. Examination patient lying comfortably in bed. He states he was feeling little dizzy today morning when he woke up. At baseline patient states he is able to ambulate with a walker and wheelchair. He states currently he is feeling okay. Denies any nausea, vomiting, headache. Vitals/I&O/Wt Last Vital Signs Temp 98.0 F 07/19/20 10:34 Pulse 67 07/19/20 10:34 Resp 18 07/19/20 10:34 BP 130/76 07/19/20 10:34 Pulse Ox 97 07/19/20 10:34 07/18/20 07/19/20 07/19/20 22:59 06:59 14:59 Intake Total 540 / 1190 450 / 1640 290 / 290 Output Total 100 / 1300 400 / 1700 1000 / 1000 Balance 440 / -110 50 / -60 -710 / -710 Weight last 48 hrs Weight 96.87 kg Physical Exam Const: COMMON NORMALS: no acute distress, patient oriented x3 and alert GENERAL APPEARANCE: frail appearing ORIENTATION/CONSCIOUSNESS: Yes awake OTHER: Pleasant, conversant, in better spirits. HENMT: COMMON NORMALS: oropharynx normal Neck/C-Spine: COMMON NORMALS: no JVD Resp: COMMON NORMALS: normal respiratory effort and clear to auscultation bilaterally AUSCULTATION: clear to auscultation bilaterally Cardio: COMMON NORMALS: no JVD, regular rhythm, S1 normal heart sound present, S2 normal heart sound present and No murmurs present (Cardio) RHYTHM: regular rhythm HEART SOUNDS: S1 normal heart sound present and S2 normal heart sound present GI: COMMON NORMALS: Normal to inspection, nondistended, normoactive bowel sounds present, Soft to palpation and non-tender PALPATION: Yes Soft to palpation Extremity: COMMON NORMALS: no joint enlargement GENERAL: Yes edema (Trace left lower extremity edema) OTHER: Right BKA, left forefoot amputation. Neuro: COMMON NORMALS: patient oriented x3 and moves all extremities SENSORIUM/ORIENTATION: Yes alert Skin: GENERAL SKIN EXAM: ecchymosis (Small ecchymoses in several locations on elbow leave. Venous stasis change) LESIONS: lesion noted (Chronic skin discoloration, scarring, as well as multiple ulcerations, skin) RASHES: other (Minimal erythema of left lower extremity below the knee.) OTHER: Left heel blister/pressure ulcer. Data : 07/19/20 05:00 07/19/20 03:57 Micro: Microbiology 07/15/20 19:01 Blood Culture - Final Blood Klebsiella pneumoniae Coagulase negativ staphylococc 07/15/20 20:09 Blood Culture - Final Blood Klebsiella pneumoniae Coagulase negativ staphylococc A&P Assessment and plan (1) Bacteremia: Blood cultures from admission showing 1 set positive for Klebsiella set positive for gram positive coag negative staph. Most likely gram-positive is a contaminant. Cannot rule out actual gram-negative infection. Patient complaining of ongoing diarrhea for over a week. Most likely source of infection. Stool studies. CT abdomen pelvis with contrast to rule out infectious source versus colitis. Stop vancomycin and Zosyn. Change antibiotics to ceftriaxone as per the sensitivities of Klebsiella. Repeat blood cultures to date negative. Check MRSA swab, procalcitonin. Keep mean arterial pressure over 65. Will monitor vitals and fluid overload. Patient will most likely need antibiotics for 2 weeks. We'll consult ID for recommendations of oral antibiotics. Status: Acute (2) Acute on chronic diastolic CHF (congestive heart failure): Overall 2.3 L negative since admission. Continue Lasix 40 mg IV daily. Will transition to oral tomorrow. Daily weights. Strict input output charting. Echocardiogram done shows an EF of 71% without regional wall motion abnormalities, trace MR, trace TR. Status: Acute (3) Hypotension: Resolved. Continue with home dose of prednisone 5 mg daily. Goal blood pressure less than 140/90 mmHg with mean over 65. Continue with home dose of losartan, decrease dose of Imdur 60 mg daily. Restart Coreg 6.25 mg twice daily. For now hold off on starting amlodipine and hydralazine. Status: Acute (4) Pemphigoid: Continue with wound care. Continue home dose of prednisone. Most likely patient requires follow-up as an outpatient with dermatology. Status: Acute (5) Alcohol abuse: Watch for signs of withdrawal Status: Inactive (6) Hyponatremia: chronic most likely secondary to alcohol abuse, currently at baseline Status: Acute (7) CKD (chronic kidney disease) stage 3, GFR 30-59 ml/min: Medical renal consultation done for nephrotoxic drugs. Urine output appro priate. Creatinine at baseline. Status: Acute Additional A&P Information DVT ppx: lovenox Protonix for PUD prophylaxis. Cardiac diet. Attestations Medical Necessity Statement*: Patient requires further hospitalization for management of gram-negative bacteremia, CHF. Time Spent in Patient Care: Greater than 35 minutes (>than 50% of time spent in counselling and/or direct pt care on unit) . Coding Level of Care Code Acute [employer] for [facility] Fwd Diagnoses Bacteremia R78.81 Acute on chronic diastolic CHF (congestive heart failure) I50.33 Hypotension I95.9 Pemphigoid L12.9 Alcohol abuse F10.10 Hyponatremia E87.1 CKD (chronic kidney disease) stage 3, GFR 30-59 ml/min N18.3
[2020-07-19 11:59] LABS: Thyroid Stimulating Hormone 3.99 uIU/mL (0.27-4.20)
[2020-07-19 12:00] LABS: Procalcitonin 0.15 ng/mL (0-0.5)
[2020-07-19] MEDS: cefTRIAXone 1,000 MG in sodium chloride 0.9% (plus) 50 ML 100 MG IV (12:01)
[2020-07-19 12:11] LABS: Iron 41 ug/dL (59-158); Percent Saturation 29.4 % (20-50); Total Iron Binding Capacity 139 mcg/dl; Unsaturated Iron Binding 98 ug/dL (112-347)
--- NOTE | 2020-07-19 12:32 | PC.RESP ---
Smoking Cessation information sent to patient.
[2020-07-19] MEDS: acetaminophen 325 mg Tablet 650 MG PO (17:59)
--- NOTE | 2020-07-19 18:40 | PC.NURSE ---
noted pt groin is very raw and yeasty notified dr. adan for nystatin powder.
--- NOTE | 2020-07-19 19:34 | P.CONIM_ITS ---
Providers/Reason For Consult Consulting Physican/Specialty*: Marlena Campos MD / Infectious disease Reason for Consult*: Klebsiella pneumoniae bacteremia, cellulitis Attending Physician: Mamadou Tobin MD Primary Care Provider: Chioma Quezada History of Present Illness History of Present Illness Rudolph Calhoun is a 69 year old male with a past medical history as noted below who was admitted on Jul 17 1999 1:21 day after having been discharged from [facility] after being treated for cellulitis. Patient stated that approximately 1 week prior to presentation he had fallen after which his left leg started to swell up, it was right and painful so he went to his local hospital, he was diagnosed with cellulitis and treated with IV vancomycin, thereafter switched to oral medications, which appears to be either clindamycin or doxycycline per review of home medications, patient does not remember the exact antibiotic. 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 He came to the ER here on Jul 16 2020 as he felt that he was discharged too early and had significant restriction in his activities of daily living. At a baseline he is able to manage some pivots and transfers and did not feel like he had been back at his functional status. He was noted to have swelling of his upper and lower extremities attributable to CHF for which she has been on diuresis during the course of admission and responded appropriately. His lower extremities upon admission did not appear to be cellulitic. Multiple spontaneous abrasions were noted over his bilateral upper extremities which were leaking some fluid. He reports he has a past history of a dermatological disorder which causes his kind to ulcerate and peel from time to time and he is on chronic prednisone 5 mg daily. I wonder if he is referring to either pemphigus or bullous pemphigoid. Subsequent hospital course notable for bacteremia with positive blood cultures for Klebsiella pneumonia and coag negative Staphylococcus from day of admission. Review of system is positive for longstanding diarrhea multiple bowel movements a day. No fever. No cough, chest pain, dyspnea. 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 Review of Systems General: Reports: 10 or more systems reviewed and unremarkable except in HPI and below Const: Denies: fever(s), chills or body aches Eyes: Denies: change in vision, blurry vision or photophobia ENMT: Reports: hoarseness; Denies: throat pain, enlarged tonsils, odynophagia or nasal congestion Card: Denies: chest pain, palpitations, irregular heart rhythm, edema, swelling of feet/ankles, lightheadedness, pre-syncope, dyspnea on exertion or orthopnea Resp: Denies: dyspnea, productive cough, non-productive cough, wheezing, stridor, pain on inspiration, change in phlegm color, hemoptysis or chest congestion GI: Denies: abdominal pain, nausea, vomiting, hematemesis, coffee ground emesis, dysphagia, heartburn, diarrhea, constipation, GI cramping, change in stool character, hematochezia or melena : Denies: flank pain, dysuria, urinary frequency, urinary urgency, urinary hesitancy or hematuria Musc: Denies: neck pain, back pain, extremity pain, joint swelling, joint warmth or deformity Neuro: Denies: headache(s), numbness in extremities, weakness in extremities, sensory changes, difficulty walking, frequent falls, dizziness, vertigo, behavioral changes, Slurred speech present or seizure-like activity Psych: Denies: anxiety, depression, suicidal ideation or homicidal ideation Endo: Denies: polyuria, polydipsia, tired all the time, cold intolerance or hot flashes Priyank/Lymph: Denies: easy bruising or easy bleeding Meds/Allergies Home Medications and Allergies Home Medications Medication Instructions Recorded Confirmed Last Taken Type magnesium oxide 420 mg tablet 400 mg PO DAILY 03/27/19 07/15/20 08/20/19 History nitroglycerin 0.4 mg sublingual 0.4 mg SUBLINGUAL Q5M PRN 03/27/19 07/15/20 Unknown History tablet furosemide 40 mg PO DAILY 30 Days #30 tab 07/18/19 07/15/20 08/20/19 Rx pantoprazole 40 mg PO DAILY 30 Days #30 tab 07/18/19 07/15/20 08/20/19 Rx amiodarone 200 mg tablet 200 mg PO DAILY 90 Days #90 tab 07/25/19 07/15/20 08/20/19 Rx atorvastatin 40 mg tablet 40 mg PO DAILY 90 Days #90 tab 07/25/19 07/15/20 Unknown Rx carvedilol 3.125 mg tablet 3.125 mg PO BID 90 Days #180 tab 07/25/19 07/15/20 08/20/19 Rx losartan 100 mg tablet 100 mg PO DAILY 90 Days #90 tab 07/25/19 07/15/20 08/20/19 Rx potassium chloride 10 mEq 10 meq PO DAILY #90 tab 07/25/19 07/15/20 08/20/19 Rx tablet,extended release clobetasol 1 applic TOPICAL BID PRN 08/20/19 07/15/20 Unknown History clopidogrel 75 mg PO DAILY 08/20/19 07/15/20 Unknown History folic acid 1 mg PO DAILY 08/20/19 07/15/20 Unknown History hydralazine 50 mg PO DAILY 08/20/19 07/15/20 08/20/19 History montelukast [Singulair] 10 mg PO DAILY 08/20/19 07/15/20 Unknown History multivitamin [Daily-Wild] 1 tab PO DAILY 08/20/19 07/15/20 Unknown History prednisone 5 mg PO DAILY 08/20/19 07/15/20 08/20/19 History 5 mg thiamine HCl (vitamin B1) [Vitamin 100 mg PO DAILY 08/20/19 07/15/20 Unknown History B-1] amlodipine 5 mg tablet See Rx Instructions .ROUTE 04/18/20 07/15/20 Unknown Rx .COMPLEX #30 tab clindamycin HCl 300 mg PO TID 07/15/20 07/15/20 Unknown History doxycycline hyclate 100 mg PO BID 07/15/20 07/15/20 Unknown History isosorbide mononitrate 90 mg PO DAILY 07/15/20 07/15/20 Unknown History Allergies Allergy/AdvReac Type Severity Reaction Status Date / Time ciprofloxacin [From Cipro] Allergy Unknown Unknown Verified 07/02/20 15:41 cortisone Allergy Unknown Unknown Verified 07/02/20 15:41 hydrochlorothiazide Allergy Unknown Unknown Verified 07/02/20 15:41 lisinopril Allergy Unknown Unknown Verified 07/02/20 15:41 Sulfa (Sulfonamide Allergy Unknown Unknown Verified 07/02/20 15:41 Antibiotics) Current Medications Current Medications Generic Name Dose Route Start Last Admin Trade Name Freq PRN Reason Stop Dose Admin Acetaminophen 650 mg 07/16/20 05:36 07/19/20 17:59 Acetaminophen 325 Mg Tablet PO 650 mg Q6H PRN Administration Mild/Mod Pain Or Temp >/= 101 Albuterol/Ipratropium 3 ml 07/16/20 21:00 07/19/20 14:38 Ipratropium-Albuterol 3 Ml Neb INHALATION 3 ml Q6H.RESPIRATORY CLARK Administration Amiodarone HCl 200 mg 07/16/20 09:00 07/19/20 08:43 Amiodarone 200 Mg Tablet PO 200 mg DAILY CLARK Administration Amlodipine Besylate 5 mg 07/16/20 09:00 07/16/20 10:06 Amlodipine 5 Mg Tablet PO Not Given DAILY CLARK Atorvastatin Calcium 40 mg 07/16/20 09:00 07/19/20 08:43 Atorvastatin 40 Mg Tablet PO 40 mg DAILY CLARK Administration Carvedilol 3.125 mg 07/16/20 09:00 07/16/20 10:14 Carvedilol 3.125 Mg Tablet PO 3.125 mg BID CLARK Administration Clopidogrel Bisulfate 75 mg 07/16/20 09:00 07/19/20 08:43 Clopidogrel 75 Mg Tablet PO 75 mg DAILY CLARK Administration Enoxaparin Sodium 40 mg 07/16/20 05:45 07/19/20 05:12 Enoxaparin 40 Mg/0.4 Ml Syringe SUBCUT 40 mg Q24H CLARK Administration Folic Acid 1 mg 07/16/20 09:00 07/19/20 08:43 Folic Acid 1 Mg Tablet PO 1 mg DAILY CLARK Administration Furosemide 40 mg 07/17/20 08:00 07/19/20 09:39 Furosemide 10 Mg/Ml Sdv 4ml IVP 40 mg Q24H CLAKR Administration Ceftriaxone Sodium 1,000 mg/ 50 mls @ 100 mls/hr 07/19/20 11:30 07/19/20 12:45 Sodium Chloride IV Infused Q24H CLARK Infusion Protocol Isosorbide Mononitrate 60 mg 07/18/20 14:30 07/19/20 10:59 Isosorbide Mononitrate Er 60 Mg Tablet PO 60 mg DAILY CLARK Administration Losartan Potassium 100 mg 07/16/20 09:00 07/19/20 08:42 Losartan 50 Mg Tablet PO 100 mg DAILY CLARK Administration Magnesium Oxide 400 mg 07/16/20 09:00 07/19/20 08:42 Magnesium Oxide 400 Mg Tablet PO 400 mg DAILY CLARK Administration Pantoprazole Sodium 40 mg 07/16/20 09:00 07/19/20 10:[address] 40 Mg Tablet PO 40 mg DAILY CLARK Administration Prednisone 5 mg 07/16/20 09:00 07/19/20 08:43 Prednisone 5 Mg Tablet PO 5 mg DAILY CLARK Administration Thiamine Mononitrate 100 mg 07/16/20 09:00 07/19/20 08:43 Thiamine 100 Mg Tablet PO 100 mg DAILY CLARK Administration PFSH Acute PFSH: Medical History Alcohol abuse Alcohol abuse ASHD (arteriosclerotic heart disease) Atherosclerotic heart disease of [place] coronary artery with other forms of angina pectoris Benign essential hypertension with target blood pressure below 140/90 Bradycardia Chronic episodic atrial fibrillation Chronic hyponatremia CKD (chronic kidney disease) stage 3, GFR 30-59 ml/min Congestive heart failure COPD (chronic obstructive pulmonary disease) Fluid overload GERD (gastroesophageal reflux disease) Hyperlipidemia Microcytic anemia NSTEMI (non-ST elevated myocardial infarction) Pemphigoid Chronically on prednisone 5 mg daily. Has a history of skin peeling with foul smell for many years. Follows up with dermatology. Peripheral vascular disease Tobacco abuse Surgical History S/P CABG (coronary artery bypass graft) S/P cardiac catheterization S/P tonsillectomy Status post below knee amputation of right lower extremity Family History Mother Hypertension CAD (coronary artery disease) Social History Smoking and tobacco status: current every day smoker cigarettes Packs smoked per day: 2 Alcohol intake: current Alcohol intake frequency: 3 or more drinks per day Alcohol type: beer Desire information about alcohol rehabilitation?: No Vitals/I&O/Wt Last Vital Signs Temp 97.8 F 07/19/20 15:36 Pulse 68 07/19/20 15:36 Resp 19 H 07/19/20 15:36 BP 149/78 07/19/20 15:36 Pulse Ox 96 07/19/20 15:36 07/19/20 07/19/20 07/19/20 06:59 14:59 22:59 Intake Total 450 / 1640 580 / 580 Output Total 400 / 1700 1400 / 1400 900 / 2300 Balance 50 / -60 -820 / -820 -900 / -1720 Weight last 48 hrs Weight 96.87 kg Physical Exam Narrative: EXAM NARRATIVE: GEN: Awake, alert and oriented, no acute distress CVS: S1S2 N RS: CTA B/L Abd: Soft, nt/nd , bs+ NUCLEAR OPERATIONS SPECIALIST: no focal neuro deficits EXT: B/L amputation, stumps appear healthy , candidiasis B/L groin folds Data Other Data: Attestation for Other Data: I personally reviewed and interpreted the following: Other data: Laboratory Results WBC 9.8 10^3/uL (4.0- 10.0) 07/20/20 06:45 Corrected WBC Cancelled 07/20/20 03:30 RBC 2.89 10^6/uL (4.1 -5.3) L 07/20/20 06:45 Hgb 8.9 g/dL (11.7-16 .6) L 07/20/20 06:45 Hct 27.2 % (42.0-52.0 ) L 07/20/20 06:45 MCV 94.1 fL (80-94) H 07/20/20 06:45 MCH 30.8 pg (28.0-34. 0) 07/20/20 06:45 MCHC 32.7 g/dL (30.0-3 6.0) 07/20/20 06:45 RDW 16.9 % (12.1-15.1 ) H 07/20/20 06:45 Plt Count 478 10^3/cmm (130 -400) H 07/20/20 06:45 MPV 9.0 fL (7.4-10.4) 07/20/20 06:45 Gran % Cancelled 07/20/20 03:30 Neut % (Auto) 83.2 % 07/20/20 06:45 Lymph % (Auto) 9.4 % 07/20/20 06:45 [place] % (Auto) 4.7 % 07/20/20 06:45 Eos % (Auto) 1.5 % 07/20/20 06:45 Baso % (Auto) 0.5 % 07/20/20 06:45 Neut # (Auto) 8.13 10^3/uL (1.8 -7.7) H 07/20/20 06:45 Lymph # (Auto) 0.9 10^3/uL (0.8- 4.8) 07/20/20 06:45 [place] # (Auto) 0.5 10^3/uL (0.2- 0.9) 07/20/20 06:45 Eos # (Auto) 0.2 10^3/uL (0.0- 0.8) 07/20/20 06:45 Baso # (Auto) 0.1 10^3/uL (0.0- 0.1) 07/20/20 06:45 Absolute Gran (aut o) Cancelled 07/20/20 03:30 Nucleated RBC % (a uto) 0 % 07/20/20 06:45 Nucleated RBCs # 0.0 /100WBC 07/20/20 06:45 Sodium 132 mmol/L (136-1 45) L 07/20/20 03:30 Potassium 3.9 mmol/L (3.5-5 .1) 07/20/20 03:30 Chloride 102 mmol/L (98-10 7) 07/20/20 03:30 Carbon Dioxide 22 mmol/L (22-29) 07/20/20 03:30 Anion Gap 11.9 (5-19) 07/20/20 03:30 BUN 16 mg/dL (8-23) 07/20/20 03:30 Creatinine 0.7 mg/dL (0.7-1. 2) 07/20/20 03:30 GFR Calculation 112.5 mL/min (90- 130) 07/20/20 03:30 Glucose 86 mg/dL (65-115) 07/20/20 03:30 POC Glucose 140 mg/dL (70-110 ) H 07/20/20 08:03 Calculated Osmolal ity 274 mOsm/kg (285- 295) L 07/20/20 03:30 Lactate 1.1 mmol/L (0.5-2 .2) 07/15/20 19:01 Calcium 7.3 mg/dL (8.5-10 .5) L 07/20/20 03:30 Iron 41 ug/dL (59-158) L 07/19/20 03:57 TIBC 139 mcg/dl 07/19/20 03:57 % Saturation 29.4 % (20-50) 07/19/20 03:57 Unsat Iron Binding 98 ug/dL (112-347 ) L 07/19/20 03:57 Total Bilirubin 0.3 mg/dL (0.15-1 .2) 07/20/20 03:30 AST 14 U/L (0-40) 07/20/20 03:30 ALT 9 U/L (0-41) 07/20/20 03:30 Alkaline Phosphata se 68 IU/L (40-130) 07/20/20 03:30 Creatine Kinase 44 U/L (39-308) 07/16/20 01:32 Troponin T Baselin e 70 ng/L (0-15) H 07/15/20 19:01 Troponin T 120 Min [place] 49.17 ng/L (0-15) H 07/15/20 21:27 Delta Troponin T -20.83 ABS# (0-10 ) L 07/15/20 21:27 Troponin T Hi Sens 6Hr 62.52 ng/L (0-15) H 07/16/20 01:22 Troponin T Hi Sens 6Hr Delta -7.48 ng/L (0-12) L 07/16/20 01:22 NT-Pro-B Natriuret Pep 6031 pg/mL (0-125 ) H 07/19/20 03:57 Total Protein 4.9 g/dL (6.6-8.7 ) L 07/20/20 03:30 Albumin 1.9 g/dL (3.5-5.2 ) L 07/20/20 03:30 Globulin 3.0 g/dL (1.3-4.6 ) 07/20/20 03:30 Lipase 127 U/L (13-60) H 07/15/20 19:01 Procalcitonin 0.15 ng/mL (0-0.5 ) 07/19/20 03:57 TSH 3.99 uIU/mL (0.27 -4.20) 07/19/20 03:57 Urine Color Yellow (Yellow) 07/15/20 19:27 Urine Appearance Clear (CLEAR) 07/15/20 19:27 Urine pH 5 (5-7) 07/15/20 19:27 Ur Specific Gravit y 1.005 (1.005-1.0 30) 07/15/20 19:27 Urine Protein Neg (Negative) 07/15/20 19:27 Urine Glucose (UA) Norm (Normal) 07/15/20 19:27 Urine Ketones Negative (Negati ve) 07/15/20 19:27 Urine Blood Neg (Negative) 07/15/20 19:27 Urine Nitrate Negative (Negati ve) 07/15/20 19:27 Urine Bilirubin 1+ (Negative) H 07/15/20 19:27 Urine Urobilinogen 1 mg/dL (Negative ) H 07/15/20 19:27 Ur Leukocyte Ольга ase Negative (Negati ve) 07/15/20 19:27 Vancomycin Trough 30.0 ug/mL (10-15 ) H* 07/19/20 11:55 Urine Opiates Scre en Positive ng/mL (N egative) H 07/15/20 19:27 Ur Barbiturates Sc reen Negative ng/mL (N egative) 07/15/20 19:27 Ur Phencyclidine S crn Negative ng/mL (N egative) 07/15/20 19:27 Ur Amphetamines Sc reen Negative ng/mL (N egative) 07/15/20 19:27 U Benzodiazepines Scrn Positive ng/mL (N egative) H 07/15/20 19:27 Urine Cocaine Scre en Negative ng/mL (N egative) 07/15/20 19:27 U Marijuana (THC) Screen Negative ng/mL (N egative) 07/15/20 19:27 Ethyl Alcohol < 10 mg/dL (0-10) 07/15/20 19:01 Hepatitis A IgM Ab Non-reactive (No nreactive) 07/20/20 03:30 Hep Bs Antigen Non-reactive (No nreactive) 07/20/20 03:30 Hep Bs Antibody 3.5 (11.5-1000) L 07/20/20 03:30 Hep B Core Total A b Non-reactive (No nreactive) 07/20/20 03:30 Hepatitis C Antibo dy Non-reactive (No nreactive) 07/20/20 03:30 HIV 1&2 Ab & HIV 1 Ag Non-reactive (No n-Reactiv) 07/20/20 03:30 HIV 1&2 Antibody Non-reactive (No n-Reactiv) 07/20/20 03:30 Impressions Ankle X-Ray 07/15/20 17:53 IMPRESSION: Osteopenia. No acute abnormality. Foot X-Ray 07/15/20 17:53 IMPRESSION: Postsurgical changes of amputation. No specific sign of osteomyelitis. Chest X-Ray 07/15/20 17:54 IMPRESSION: No acute infiltrate. Lower Extremity CT 07/18/20 09:00 IMPRESSION: 1. Skin thickening, poorly defined subcutaneous fluid, and subcutaneous edema, consistent with reported history of cellulitis. 2. No localized soft tissue abscess is identified. 3. Additional findings as described above. Radiation Dose CTDIVOL = (mGy): DLP = 1408.21 (mGy-cm) Abdomen/Pelvis CT 07/19/20 11:20 IMPRESSION: There are moderate bilateral pleural effusions. There is bilateral lower lobe lung consolidation consistent with atelectasis and/or pneumonia. There is questionable colitis of the rectosigmoid colon versus underdistention.Clinical correlation is advised. Radiation Dose CTDIVOL = (mGy): DLP = 1805.96 (mGy-cm) Microbiology 07/19/20 19:05 Nose MRSA Culture - Final 07/15/20 19:01 Blood Blood Culture - Final Klebsiella pneumoniae Coagulase negativ staphylococc 07/15/20 20:09 Blood Blood Culture - Final Klebsiella pneumoniae Coagulase negativ staphylococc 07/16/20 16:55 Blood Blood Culture - Preliminary NEGATIVE TO DATE 07/16/20 17:00 Blood Blood Culture - Preliminary NEGATIVE TO DATE 4 OF 4 BOTTLES POSITIVE GRAM STAIN: GRAM NEGATIVE RODS IN 2 OF 4 BOTTLES AND GRAM POSITIVE COCCI IN CLUSTERS IN 2 OF 4 BOTTLES, SAME SET ISOLATE 2: PROBABLE CONTAMINANT. Organism 1 Klebsiella pneumoniae Growth IN 2 BOTTLES Organism 2 Coagulase negativ staphylococc Growth IN 2 BOTTLES, SAME SET Gram Stain Charge Charge for Gram Stain CRITICAL RESULT YES/NO: YES CRITICAL CALLED BY: SOHAM TO AND READ BACK BY: [facility] DATE: 07/16/20 TIME: 1423 Kleb pneum M.I.C. RX --------- ------ * Amikacin <=16 S * Amoxicillin/Clavulanate <=8/4 S * Ampicillin >16 R * Ampicillin/Sulbactam <=8/4 S * Aztreonam <=4 S * Cefepime <=8 S * Ceftriaxone <=1 S * Cefuroxime <=4 S * Ciprofloxacin <=1 S * Gentamicin <=2 S * Imipenem <=1 S * Levofloxacin <=2 S * Tetracycline >8 R * Trimethoprim/Sulfamethoxazole <=2/38 S * Piperacillin/Tazobactam <=16 S A&P Assessment and plan (1) Bacteremia due to Klebsiella pneumoniae: Source unclear at this time May be related to multiple skin abrasions on UE and in the groin, likely from intertrigo, however no gross signs of cellulitis noted at these sites. No cx data available from recent admission at [facility], possible that patient may have been bacteremic at the time of active cellulitis episode. Started on cefepime on 07/16, previously on vancomycin and ?gram negative coverage at OSH. Blood cx currently clear as of 07/16 Can narrow abx to ceftriaxone 1 g iv today Cog negative staph 2/4 likely to be contaminant UA clear, less likely urinary source of bacteremia Given chronic diarrhea, would exclude GI causes such as colitis/diverticulitis with CT abdomen as source of bacteremia. Check C diff PCR Status: Acute (2) Acute on chronic diastolic CHF (congestive heart failure): management per primary team Status: Acute (3) Candidiasis: stop iv fluconazole change to fluconazole 200mg po daily continue nystatin Clotrimazole ointment if no significant releif with nystatin Status: Acute Consult Attestations Medical Necessity Statement: iv abx for bacteremia, source evaluation ongoing , per admitting note Coding Level of Care Code Acute Manager Cafe for [facility] Marco Diagnoses Bacteremia due to Klebsiella pneumoniae R78.81; B96.1 Acute on chronic diastolic CHF (congestive heart failure) I50.33 Candidiasis B37.9
[2020-07-19] MEDS: nystatin powder 15 gm Btl 1 APPLIC TOPICAL (20:22)
[2020-07-20] VITALS (18 sets, daily range): BP systolic 129–162; BP diastolic 63–92; PULSE 57–78; RESP 17–92; TEMP 36.6–36.8; O2SAT 93–96
[2020-07-20] MEDS: ipratropium-albuterol 3 mL Neb INHALATION ×4 (02:10→20:32)
[2020-07-20 04:11] LABS: Alanine Aminotransferase 9 U/L (0-41); Albumin Level 1.9 g/dL (3.5-5.2); Alkaline Phosphatase 68 IU/L (40-130); Aspartate Amino Transferase 14 U/L (0-40); Blood Urea Nitrogen 16 mg/dL (8-23); Calcium 7.3 mg/dL (8.5-10.5); Carbon Dioxide 22 mmol/L (22-29); Chloride 102 mmol/L (98-107); Glomerular Filtration Rate 112.5 mL/min (90-130); Glucose 86 mg/dL (65-115); Osmolality Calculated 274 mOsm/kg (285-295); Sodium 132 mmol/L (136-145); Total Bilirubin 0.3 mg/dL (0.15-1.2); Total Protein 4.9 g/dL (6.6-8.7)
[2020-07-20 04:24] LABS: Anion Gap 11.9 (5-19); Potassium 3.9 mmol/L (3.5-5.1)
[2020-07-20 04:31] LABS: HIV 1 & 2 Antibody Non-Reactive (Non-Reactiv); HIV 1 & 2 Antigen Non-Reactive (Non-Reactiv)
[2020-07-20 05:08] LABS: Hepatitis A Antibody IgM Non-Reactive (Nonreactive); Hepatitis B Core AB, Total Non-Reactive (Nonreactive); Hepatitis B Surface AB 3.5 (11.5-1000); Hepatitis B Surface Antigen Non-Reactive (Nonreactive); Hepatitis C Virus Antibody Non-Reactive (Nonreactive)
[2020-07-20 07:33] LABS: Basophils # 0.1 10^3/uL (0.0-0.1); Basophils % 0.5 %; Eosinophils # 0.2 10^3/uL (0.0-0.8); Eosinophils % 1.5 %; Hematocrit 27.2 % (42.0-52.0); Hemoglobin 8.9 g/dL (11.7-16.6); Lymphocytes # 0.9 10^3/uL (0.8-4.8); Lymphocytes % 9.4 %; Mean Corpuscular HGB Conc 32.7 g/dL (30.0-36.0); Mean Corpuscular Hemoglobin 30.8 pg (28.0-34.0); Mean Corpuscular Volume 94.1 fL (80-94); Monocytes # 0.5 10^3/uL (0.2-0.9); Monocytes % 4.7 %; Neutrophils # 8.13 10^3/uL (1.8-7.7); Neutrophils % 83.2 %; Nucleated Red Blood Cells % 0 %; Platelet Count 478 10^3/cmm (130-400); Red Blood Count 2.89 10^6/uL (4.1-5.3); Red Cell Distribution Width 16.9 % (12.1-15.1); White Blood Count 9.8 10^3/uL (4.0-10.0)
[2020-07-20 09:32] LABS: Glucose Point of Care 140 mg/dL (70-110)
[2020-07-20] MEDS: atorvastatin 40 mg Tablet PO (09:37)
[2020-07-20] MEDS: fluconazole 100 mg Tablet 200 MG PO (09:40)
[2020-07-20] MEDS: clopidogrel 75 mg Tablet PO (09:40)
[2020-07-20] MEDS: folic acid 1 mg Tablet PO (09:41)
[2020-07-20] MEDS: losartan 50 mg Tablet 100 MG PO (09:42)
[2020-07-20] MEDS: isosorbide mononitrate ER 60 mg Tablet PO (09:42)
[2020-07-20] MEDS: magnesium oxide 400 mg tablet PO (09:43)
[2020-07-20] MEDS: pantoprazole DR 40 mg Tablet PO (09:43)
[2020-07-20] MEDS: predniSONE 5 mg Tablet PO (09:44)
[2020-07-20] MEDS: thiamine 100 mg Tablet PO (09:44)
[2020-07-20] MEDS: amiodarone 200 mg Tablet PO (09:45)
[2020-07-20] MEDS: carvedilol 3.125 mg Tablet PO ×2 (09:45→18:26)
[2020-07-20] MEDS: nystatin powder 15 gm Btl 1 APPLIC TOPICAL ×2 (09:53→18:26)
[2020-07-20] MEDS: FUROsemide 40 mg Tablet PO ×2 (09:53→15:36)
[2020-07-20] MEDS: cefTRIAXone 1,000 MG in sodium chloride 0.9% (plus) 50 ML 100 MG IV (11:49)
--- NOTE | 2020-07-20 12:11 | P.PN_ITS ---
Subjective Subjective: Interval history: No acute events overnight. Patient has remained hemodynamically stable. Denies any nausea, vomiting, headache. Denies any difficulty in breathing. States he is feeling a lot better. Requesting to be discharged tomorrow and not today if possible. Vitals/I&O/Wt Last Vital Signs Temp 98.0 F 07/20/20 10:39 Pulse 73 07/20/20 10:39 Resp 19 H 07/20/20 10:39 BP 129/68 07/20/20 10:39 Pulse Ox 93 07/20/20 10:39 07/19/20 07/20/20 07/20/20 22:59 06:59 14:59 Intake Total 240 / 820 400 / 1220 480 / 480 Output Total 1100 / 2500 300 / 2800 Balance -860 / -1680 100 / -1580 480 / 480 Weight last 48 hrs Weight 99.422 kg Physical Exam Const: COMMON NORMALS: no acute distress, patient oriented x3 and alert GENERAL APPEARANCE: frail appearing ORIENTATION/CONSCIOUSNESS: Yes awake OTHER: Pleasant, conversant, in better spirits. HENMT: COMMON NORMALS: oropharynx normal Neck/C-Spine: COMMON NORMALS: no JVD Resp: COMMON NORMALS: normal respiratory effort and clear to auscultation bilaterally AUSCULTATION: clear to auscultation bilaterally Cardio: COMMON NORMALS: no JVD, regular rhythm, S1 normal heart sound present, S2 normal heart sound present and No murmurs present (Cardio) RHYTHM: regular rhythm HEART SOUNDS: S1 normal heart sound present and S2 normal heart sound present GI: COMMON NORMALS: Normal to inspection, nondistended, normoactive bowel sounds present, Soft to palpation and non-tender PALPATION: Yes Soft to palpation Extremity: COMMON NORMALS: no joint enlargement GENERAL: Yes edema (Trace left lower extremity edema) OTHER: Right BKA, left forefoot amputation. Neuro: COMMON NORMALS: patient oriented x3 and moves all extremities SENSORIUM/ORIENTATION: Yes alert Skin: GENERAL SKIN EXAM: ecchymosis (Small ecchymoses in several locations on elbow leave. Venous stasis change) LESIONS: lesion noted (Chronic skin discoloration, scarring, as well as multiple ulcerations, skin) RASHES: other (Minimal erythema of left lower extremity below the knee.) OTHER: Left heel blister/pressure ulcer. Data : 07/20/20 06:45 07/20/20 03:30 A&P Assessment and plan (1) Bacteremia due to Klebsiella pneumoniae: Blood cultures from admission showing 1 set positive for Klebsiella set positive for gram positive coag negative staph. Most likely gram-positive is a contaminant. Appreciate ID recommendations. CT abdomen consistent with colitis. C/w Ceftriaxone for now. will confirm with ID for possible Abx on d/c as it seems patient is allergic to ciprofloxacin. If not able to send him on oral antibiotics. A PICC line. Patient will need IV antibiotics for 14 days from July 16. Continue with fluconazole for groin fungal infection. HIV hepatitis panel is negative. Status: Acute (2) Colitis: Status: Acute (3) Acute on chronic diastolic CHF (congestive heart failure): Overall 1.7 L negative since admission. Change Lasix to 40 mg oral twice daily. Daily weights. Strict input output charting. Echocardiogram done shows an EF of 71% without regional wall motion abnormalities, trace MR, trace TR. Status: Acute (4) Hypotension: Resolved. Continue with home dose of prednisone 5 mg daily. Goal blood pressure less than 140/90 mmHg with mean over 65. Continue with home dose of losartan, decrease dose of Imdur 60 mg daily. Restart Coreg 6.25 mg twice daily. For now hold off on starting amlodipine and hydralazine. Status: Acute (5) Pemphigoid: Continue with wound care. Continue home dose of prednisone. Most likely patient requires follow-up as an outpatient with dermatology. Status: Acute (6) Alcohol abuse: Watch for signs of withdrawal Status: Inactive (7) Hyponatremia: chronic most likely secondary to alcohol abuse, currently at baseline Status: Acute (8) CKD (chronic kidney disease) stage 3, GFR 30-59 ml/min: Medical renal consultation done for nephrotoxic drugs. Urine output appropriate. Creatinine at baseline. Status: Acute Additional A&P Information DVT ppx: lovenox Protonix for PUD prophylaxis. Cardiac diet. Continue with physical therapy. Out of bed. Discharge planning: If patient continues to do well can most likely discharge in next 24 hours on antibiotic therapy for next 14 days for gram-negative b acteremia. Home health has been set up. Patient has denied multiple tries for placement to SNF for further rehabitation. Attestations Medical Necessity Statement*: Patient requires further hospitalization for management of sepsis, gram-negative bacteremia while outpatient antibiotics are set up. Time Spent in Patient Care: Greater than 35 minutes (>than 50% of time spent in counselling and/or direct pt care on unit) . Coding Level of Care Code Acute Chief Ultrasound Technologist for g Fwd Diagnoses Bacteremia due to Klebsiella pneumoniae R78.81; B96.1 Colitis K52.9 Acute on chronic diastolic CHF (congestive heart failure) I50.33 Hypotension I95.9 Pemphigoid L12.9 Alcohol abuse F10.10 Hyponatremia E87.1 CKD (chronic kidney disease) stage 3, GFR 30-59 ml/min N18.3
[2020-07-20] MEDS: acetaminophen 325 mg Tablet 650 MG PO (15:37)
--- NOTE | 2020-07-20 19:58 | P.PN_ITS ---
Subjective Subjective: Interval history: infectious disease progress note No new interim events. Afebeile, hemodynamically stable. Vitals/I&O/Wt Last Vital Signs Temp 97.9 F 07/20/20 15:17 Pulse 61 07/20/20 15:17 Resp 24 H 07/20/20 15:17 BP 149/77 07/20/20 15:17 Pulse Ox 93 07/20/20 15:17 07/20/20 07/20/20 07/20/20 06:59 14:59 22:59 Intake Total 400 / 1220 530 / 530 240 / 770 Output Total 300 / 2800 200 / 200 850 / 1050 Balance 100 / -1580 330 / 330 -610 / -280 Weight last 48 hrs Weight 99.422 kg Physical Exam Narrative: EXAM NARRATIVE: GEN: Awake, alert and oriented, no acute distress CVS: S1S2 N RS: CTA B/L Abd: Soft, nt/nd , bs+ HELP DESK COORDINATOR: no focal neuro deficits EXT: B/L amputation, stumps appear healthy , candidiasis B/L groin folds Data : 07/20/20 06:45 07/20/20 03:30 Micro: Microbiology 07/19/20 19:05 MRSA Culture - Final Nose A&P Assessment and plan (1) Bacteremia due to Klebsiella pneumoniae: May be related to multiple skin abrasions on UE and in the groin, likely from intertrigo, however no gross signs of cellulitis noted at these sites. No cx data available from recent admission at [facility], possible that patient may have been bacteremic at the time of active cellulitis episode. Started on cefepime on 07/16, previously on vancomycin and ?gram negative co verage at OSH. Blood cx currently clear as of 07/16 Cog negative staph 2/4 likely to be contaminant UA clear, less likely urinary source of bacteremia Given chronic diarrhea, CT abdomen performed, possible colitis vs undistended colon. Currently on ceftriaxone 1g iv q24h Recommend duration of above treatment to be 14 days from clearance of blood cultures. Reports allergy (anaphylaxis) to fluoroquinolones , therefore cannot use Cipro/Levaquin orally Status: Acute (2) Acute on chronic diastolic CHF (congestive heart failure): management per primary team Status: Acute (3) Candidiasis: continue fluconazole 200mg po daily x 10 days continue nystatin Status: Acute Additional A&P Information Thank you for this consult,please call with any questions Attestations Medical Necessity Statement*: need for iv abx, PICC line placement for home abx infusion , per admitting Coding Level of Care Code Acute Automobile Tester for Martina Fwlen Diagnoses Bacteremia due to Klebsiella pneumoniae R78.81; B96.1 Acute on chronic diastolic CHF (congestive heart failure) I50.33 Candidiasis B37.9
--- NOTE | 2020-07-20 20:33 | PC.NURSE ---
DR. MARIA IN ROOM TO SEE PATIENT.
[2020-07-21] VITALS (16 sets, daily range): BP systolic 156–165; BP diastolic 74–94; PULSE 61–78; RESP 15–24; TEMP 36.6–36.8; O2SAT 88–95
[2020-07-21] MEDS: ipratropium-albuterol 3 mL Neb INHALATION ×4 (02:13→20:07)
--- NOTE | 2020-07-21 04:52 | PC.NURSE ---
Patient has rested in bed with eyes closed most of the shift. Patient has had no complaints. Will continue to monitor.
[2020-07-21] MEDS: enoxaparin 40 mg/0.4 mL Syringe SUBCUT (05:14)
[2020-07-21] MEDS: predniSONE 5 mg Tablet PO (09:38)
[2020-07-21] MEDS: amiodarone 200 mg Tablet PO (09:39)
[2020-07-21] MEDS: thiamine 100 mg Tablet PO (09:39)
[2020-07-21] MEDS: losartan 50 mg Tablet 100 MG PO (09:39)
[2020-07-21] MEDS: carvedilol 3.125 mg Tablet PO ×2 (09:39→17:16)
[2020-07-21] MEDS: isosorbide mononitrate ER 60 mg Tablet PO (09:39)
[2020-07-21] MEDS: atorvastatin 40 mg Tablet PO (09:39)
[2020-07-21] MEDS: magnesium oxide 400 mg tablet PO (09:39)
[2020-07-21] MEDS: clopidogrel 75 mg Tablet PO (09:39)
[2020-07-21] MEDS: folic acid 1 mg Tablet PO (09:39)
[2020-07-21] MEDS: pantoprazole DR 40 mg Tablet PO (09:39)
[2020-07-21] MEDS: fluconazole 100 mg Tablet 200 MG PO (09:39)
[2020-07-21] MEDS: FUROsemide 40 mg Tablet PO (09:40)
[2020-07-21] MEDS: nystatin powder 15 gm Btl 1 APPLIC TOPICAL ×2 (09:41→17:16)
--- NOTE | 2020-07-21 10:24 | PC.CHAP ---
Pastoral Care Encounter/Spiritual Assessment Type of Contact [] Declined chief accounting officer visit [] Patient/Family/Request visit [] Outpatient visit [] Follow-up visit [] Physician referral [] Code/Alert [x] Routine visit [] Staff referral [] Actively dying [] Patient sleeping [] Family support [] [] Out of room [] Palliative care [] [] Receiving care in room [] Pre-surgical visit [] Trauma [] Long length of stay [] ICU visit [] Other: Relational/Emotional Strength [] Patient feels connected with others/family/visitors/staff [] Distress [] Loneliness/isolation [] Abandonment Spirituality of Patient [] Person of Lisa [] Attends Zoroastrianism of their Lisa [] Believes in Prayer [] Reads Bible or Oriental Orthodox materials [] There are Spiritual issues to be addressed Crossing Tender Interventions [x] Prayer [x] Active listening [x] Non-anxious presence [x] Spiritual/emotional support [] Crisis/trauma care [] Spiritual counseling [] Bereavement support [] Provided bereavement packet [] Provided Bible/devotional materials [] Provided toy/stuffed animal, coloring book to patient or family member [] Provided Communion [] Anointing/[place] [] Salvation [x] Completed spiritual assessment [] Other: Impact on Illness or Injury [] Angry [] Fearful [] Anxious [] Often cries [] Exhaustion [] Unable to work [] Unable to attend voodoo [] Unable to walk/stand [] Unable to read [] Unable to drive [] Unable to eat/drink [] Unable to sleep [] Unable to be with family [] Patient intubated [] Other: Summary patient looking forward to going home.... Time spent with patient 10 min
--- NOTE | 2020-07-21 11:28 | PM.DCS ---
Discharge Providers Date of Admission: 07/16/20 20:04 Date of Discharge: July 21, 2020 Attending Provider at Admission: Marlena Campos MD Attending Provider at Discharge: Mamadou Tobin MD Consults: ID: Dr. Campos Primary Care Provider: Chioma Quezada Diagnoses at Discharge Discharge Diagnosis (1) Bacteremia due to Klebsiella pneumoniae: Status: Acute (2) Acute on chronic diastolic CHF (congestive heart failure): Status: Acute (3) Candidiasis: Status: Acute Reason for Visit Reason for Visit: EDEMA Hospital Course Hospital Course Rudolph Calhoun is a 69 year old male with a past medical history of CAD status post CABG x1, status post drug-eluting stent to left circumflex, history of atrial fibrillation on amiodarone and aspirin low-dose, peripheral vascular disease, right BKA, left TMA, chronic smoker, COPD not oxygen dependent, hypertension, hyperlipidemia, GERD, diastolic heart failure, ethanol abuse, chronic hyponatremia baseline sodium is 129, CKD stage III who presents to the emergency room after having been discharged from a hospital in [place] yesterday after being treated for cellulitis. Patient states that he fell approximately 1 week ago after which his left leg started to swell up, it was red and painful, he went to the local hospital, he was treated for cellulitis with IV vancomycin according to the patient. Discharged yesterday with oral antibiotics, however he has not had a chance to flower buncher or picker his medication. Does not recall the name of this antibiotic, per review of home medications this appears to be Clindamycin. He returned to the ER today as he feels he was discharged too early, at a baseline he is in a wheelchair, however is able to manage some pivots and transfers, he is unable to do that and feels like he is not back at his baseline functional status yet. Additionally he has noted that his upper and lower extremities were swollen and there were spontaneous abrasions over his upper extremities which were leaking some fluid. Denies any fever. Denies any chest pain dyspnea or palpitations at this time. He was admitted to the hospital for management of congestive heart failure. He was started on IV diuresis to which he responded well. On admission patient was found to be having low blood pressures for which he was treated with stress dose steroids and there was a concern of sepsis due to cellulitis for which he was started on broad-spectrum antibiotics and blood cultures were taken. His blood cultures from admission had 1 set positive for Klebsiella pneumonia while the other set was positive for coag negative staph. ID was consulted was determined that coag negative staph is most likely a contaminant. Patient states he has been having diarrhea at home for the last couple of weeks for which CT abdomen was done was a concern for possible colitis. Stool studies were negative for C. difficile. Patient was also found to have multiple lesions on his skin for which he stated that he has been diagnosed of some skin disorder for which he needs to take prednisone 5 mg daily at home. He states for a long time he has been having skin peeling off leaving foul-smelling tissue underneath. He states since he has been on prednisone that has gone away. Patient was found to have multiple skin lesions on both of his arms at various stages. They were dressed with Hydrofera Blue. During hospitalization he was found to have fluctuant blood pressure for which he was multiple antihypertensives were adjusted. He responded well to the treatment and by the day of discharge was around 4 L negative, saturating well on room air. Home oxygen evaluation was done prior to discharge. He is been discharged hemodynamically stable condition with advised to follow-up with his primary care provider within next 1 week, continue taking IV ceftriaxone for 9 more days to finish a 14-day course. Midline has been placed. Physical Exam Const: COMMON NORMALS: no acute distress, patient oriented x3 and alert GENERAL APPEARANCE: frail appearing ORIENTATION/CONSCIOUSNESS: Yes awake OTHER: Pleasant, conversant, in better spirits. HENMT: COMMON NORMALS: oropharynx normal Neck/C-Spine: COMMON NORMALS: no JVD Resp: COMMON NORMALS: normal respiratory effort and clear to auscultation bilaterally AUSCULTATION: clear to auscultation bilaterally Cardio: COMMON NORMALS: no JVD, regular rhythm, S1 normal heart sound present, S2 normal heart sound present and No murmurs present (Cardio) RHYTHM: regular rhythm HEART SOUNDS: S1 normal heart sound present and S2 normal heart sound present GI: COMMON NORMALS: Normal to inspection, nondistended, normoactive bowel sounds present, Soft to palpation and non-tender PALPATION: Yes Soft to palpation Extremity: COMMON NORMALS: no joint enlargement GENERAL: Yes edema (Trace left lower extremity edema) OTHER: Right BKA, left forefoot amputation. Neuro: COMMON NORMALS: patient oriented x3 and moves all extremities SENSORIUM/ORIENTATION: Yes alert Skin: GENERAL SKIN EXAM: ecchymosis (Small ecchymoses in several locations on elbow leave. Venous stasis change) LESIONS: lesion noted (Chronic skin discoloration, scarring, as well as multiple ulcerations, skin) RASHES: other (Minimal erythema of left lower extremity below the knee.) OTHER: Left heel blister/pressure ulcer. Discharge Data Data Completed and Pending: Completed Studies During Hospitalization Category Date Time Status CT abdomen pelvis w con* [id number] Rout ine Cat Scan 07/19/20 11:[address] lower leg LT w o con* [id number] Routi ne Cat Scan 07/18/20 09:00 Completed XR ankle LT 2V 73 600 Stat Exams 07/15/20 17:53 Completed XR chest 1V madhuri ble [id number] Urgent Exams 07/15/20 17:54 Completed XR foot LT 2V 736 20 Stat Exams 07/15/20 17:53 Completed CV echo complete* [id number] Routine Ultrasound 07/17/20 07:00 Completed Pending at discharge Category Date Time Status Blood Culture Sta t Lab 07/16/20 16:55 Results Clostridioides Di fficile PCR Routin e Lab 07/19/20 19:25 Results Enteric Bacterial Panel by PCR Rout ine Lab 07/19/20 19:25 Results Enteric Parasite Panel by PCR Routi ne Lab 07/19/20 19:25 Results Immunochemical Fe alejandro OCB Routine Lab 07/19/20 19:25 Results Lactoferrin Routi ne Lab 07/19/20 19:25 Results Addt'l Data from Hospital Stay: Laboratory Results WBC 9.8 10^3/uL (4.0- 10.0) 07/20/20 06:45 Corrected WBC Cancelled 07/20/20 03:30 RBC 2.89 10^6/uL (4.1 -5.3) L 07/20/20 06:45 Hgb 8.9 g/dL (11.7-16 .6) L 07/20/20 06:45 Hct 27.2 % (42.0-52.0 ) L 07/20/20 06:45 MCV 94.1 fL (80-94) H 07/20/20 06:45 MCH 30.8 pg (28.0-34. 0) 07/20/20 06:45 MCHC 32.7 g/dL (30.0-3 6.0) 07/20/20 06:45 RDW 16.9 % (12.1-15.1 ) H 07/20/20 06:45 Plt Count 478 10^3/cmm (130 -400) H 07/20/20 06:45 MPV 9.0 fL (7.4-10.4) 07/20/20 06:45 Gran % Cancelled 07/20/20 03:30 Neut % (Auto) 83.2 % 07/20/20 06:45 Lymph % (Auto) 9.4 % 07/20/20 06:45 [place] % (Auto) 4.7 % 07/20/20 06:45 Eos % (Auto) 1.5 % 07/20/20 06:45 Baso % (Auto) 0.5 % 07/20/20 06:45 Neut # (Auto) 8.13 10^3/uL (1.8 -7.7) H 07/20/20 06:45 Lymph # (Auto) 0.9 10^3/uL (0.8- 4.8) 07/20/20 06:45 [place] # (Auto) 0.5 10^3/uL (0.2- 0.9) 07/20/20 06:45 Eos # (Auto) 0.2 10^3/uL (0.0- 0.8) 07/20/20 06:45 Baso # (Auto) 0.1 10^3/uL (0.0- 0.1) 07/20/20 06:45 Absolute Gran (aut o) Cancelled 07/20/20 03:30 Nucleated RBC % (a uto) 0 % 07/20/20 06:45 Nucleated RBCs # 0.0 /100WBC 07/20/20 06:45 Sodium 132 mmol/L (136-1 45) L 07/20/20 03:30 Potassium 3.9 mmol/L (3.5-5 .1) 07/20/20 03:30 Chloride 102 mmol/L (98-10 7) 07/20/20 03:30 Carbon Dioxide 22 mmol/L (22-29) 07/20/20 03:30 Anion Gap 11.9 (5-19) 07/20/20 03:30 BUN 16 mg/dL (8-23) 07/20/20 03:30 Creatinine 0.7 mg/dL (0.7-1. 2) 07/20/20 03:30 GFR Calculation 112.5 mL/min (90- 130) 07/20/20 03:30 Glucose 86 mg/dL (65-115) 07/20/20 03:30 POC Glucose 140 mg/dL (70-110 ) H 07/20/20 08:03 Calculated Osmolal ity 274 mOsm/kg (285- 295) L 07/20/20 03:30 Lactate 1.1 mmol/L (0.5-2 .2) 07/15/20 19:01 Calcium 7.3 mg/dL (8.5-10 .5) L 07/20/20 03:30 Iron 41 ug/dL (59-158) L 07/19/20 03:57 TIBC 139 mcg/dl 07/19/20 03:57 % Saturation 29.4 % (20-50) 07/19/20 03:57 Unsat Iron Binding 98 ug/dL (112-347 ) L 07/19/20 03:57 Total Bilirubin 0.3 mg/dL (0.15-1 .2) 07/20/20 03:30 AST 14 U/L (0-40) 07/20/20 03:30 ALT 9 U/L (0-41) 07/20/20 03:30 Alkaline Phosphata se 68 IU/L (40-130) 07/20/20 03:30 Creatine Kinase 44 U/L (39-308) 07/16/20 01:32 Troponin T Baselin e 70 ng/L (0-15) H 07/15/20 19:01 Troponin T 120 Min leelee 49.17 ng/L (0-15) H 07/15/20 21:27 Delta Troponin T -20.83 ABS# (0-10 ) L 07/15/20 21:27 Troponin T Hi Sens 6Hr 62.52 ng/L (0-15) H 07/16/20 01:22 Troponin T Hi Sens 6Hr Delta -7.48 ng/L (0-12) L 07/16/20 01:22 NT-Pro-B Natriuret Pep 6031 pg/mL (0-125 ) H 07/19/20 03:57 Total Protein 4.9 g/dL (6.6-8.7 ) L 07/20/20 03:30 Albumin 1.9 g/dL (3.5-5.2 ) L 07/20/20 03:30 Globulin 3.0 g/dL (1.3-4.6 ) 07/20/20 03:30 Lipase 127 U/L (13-60) H 07/15/20 19:01 Procalcitonin 0.15 ng/mL (0-0.5 ) 07/19/20 03:57 TSH 3.99 uIU/mL (0.27 -4.20) 07/19/20 03:57 Urine Color Yellow (Yellow) 07/15/20 19:27 Urine Appearance Clear (CLEAR) 07/15/20 19:27 Urine pH 5 (5-7) 07/15/20 19:27 Ur Specific Gravit y 1.005 (1.005-1.0 30) 07/15/20 19:27 Urine Protein Neg (Negative) 07/15/20 19:27 Urine Glucose (UA) Norm (Normal) 07/15/20 19:27 Urine Ketones Negative (Negati ve) 07/15/20 19:27 Urine Blood Neg (Negative) 07/15/20 19:27 Urine Nitrate Negative (Negati ve) 07/15/20 19:27 Urine Bilirubin 1+ (Negative) H 07/15/20 19:27 Urine Urobilinogen 1 mg/dL (Negative ) H 07/15/20 19:27 Ur Leukocyte Ольга ase Negative (Negati ve) 07/15/20 19:27 Vancomycin Trough 30.0 ug/mL (10-15 ) H* 07/19/20 11:55 Urine Opiates Scre en Positive ng/mL (N egative) H 07/15/20 19:27 Ur Barbiturates Sc reen Negative ng/mL (N egative) 07/15/20 19:27 Ur Phencyclidine S crn Negative ng/mL (N egative) 07/15/20 19:27 Ur Amphetamines Sc reen Negative ng/mL (N egative) 07/15/20 19:27 U Benzodiazepines Scrn Positive ng/mL (N egative) H 07/15/20 19:27 Urine Cocaine Scre en Negative ng/mL (N egative) 07/15/20 19:27 U Marijuana (THC) Screen Negative ng/mL (N egative) 07/15/20 19:27 Ethyl Alcohol < 10 mg/dL (0-10) 07/15/20 19:01 Hepatitis A IgM Ab Non-reactive (No nreactive) 07/20/20 03:30 Hep Bs Antigen Non-reactive (No nreactive) 07/20/20 03:30 Hep Bs Antibody 3.5 (11.5-1000) L 07/20/20 03:30 Hep B Core Total A b Non-reactive (No nreactive) 07/20/20 03:30 Hepatitis C Antibo dy Non-reactive (No nreactive) 07/20/20 03:30 HIV 1&2 Ab & HIV 1 Ag Non-reactive (No n-Reactiv) 07/20/20 03:30 HIV 1&2 Antibody Non-reactive (No n-Reactiv) 07/20/20 03:30 Impressions Ankle X-Ray 07/15/20 17:53 IMPRESSION: Osteopenia. No acute abnormality. Foot X-Ray 07/15/20 17:53 IMPRESSION: Postsurgical changes of amputation. No specific sign of osteomyelitis. Chest X-Ray 07/15/20 17:54 IMPRESSION: No acute infiltrate. Lower Extremity CT 07/18/20 09:00 IMPRESSION: 1. Skin thickening, poorly defined subcutaneous fluid, and subcutaneous edema, consistent with reported history of cellulitis. 2. No localized soft tissue abscess is identified. 3. Additional findings as described above. Radiation Dose CTDIVOL = (mGy): DLP = 1408.21 (mGy-cm) Abdomen/Pelvis CT 07/19/20 11:20 IMPRESSION: There are moderate bilateral pleural effusions. There is bilateral lower lobe lung consolidation consistent with atelectasis and/or pneumonia. There is questionable colitis of the rectosigmoid colon versus underdistention.Clinical correlation is advised. Radiation Dose CTDIVOL = (mGy): DLP = 1805.96 (mGy-cm) Microbiology 07/19/20 19:25 Stool Stool Lactoferrin - Final 07/19/20 19:25 Stool C.difficile Toxin B Gene (PCR) - Final 07/19/20 19:25 Stool Occult Blood (FIT) - Final 07/19/20 19:05 Nose MRSA Culture - Final 07/15/20 19:01 Blood Blood Culture - Final Klebsiella pneumoniae Coagulase negativ staphylococc 07/15/20 20:09 Blood Blood Culture - Final Klebsiella pneumoniae Coagulase negativ staphylococc 07/16/20 16:55 Blood Blood Culture - Preliminary NEGATIVE TO DATE 07/16/20 17:00 Blood Blood Culture - Preliminary NEGATIVE TO DATE Vitals: Last Vital Signs Temp 98.3 F 07/21/20 11:05 Pulse 72 07/21/20 11:05 Resp 18 07/21/20 11:05 BP 165/94 07/21/20 11:05 Pulse Ox 88 L 07/21/20 11:05 Discharge Plan Discharge Patient Disposition: Home Health Service Condition: Stable Prescriptions: New fluconazole 100 mg Tablet 200 mg PO DAILY 14 Days Qty: 26 RF: 0 Continued nitroglycerin [Nitrostat] 0.4 mg tablet, sublingual 0.4 mg SUBLINGUAL Q5M PRN (Reason: Chest Pain) RF: 0 magnesium oxide 420 mg tablet 400 mg PO DAILY RF: 0 atorvastatin 40 mg tablet 40 mg PO DAILY 90 Days Qty: 90 RF: 2 Coreg 3.125 mg tablet 3.125 mg PO BID 90 Days Qty: 180 RF: 2 losartan 100 mg tablet 100 mg PO DAILY 90 Days Qty: 90 RF: 2 potassium chloride [Klor-Con 10] 10 mEq tablet extended release 10 meq PO DAILY Qty: 90 RF: 2 Pacerone 200 mg tablet 200 mg PO DAILY 90 Days Qty: 90 RF: 2 prednisone 5 mg tablet 5 mg PO DAILY RF: 0 clobetasol 0.05 % cream 1 applic TOPICAL BID PRN (Reason: unknown) RF: 0 clopidogrel 75 mg tablet 75 mg PO DAILY RF: 0 multivitamin [Daily-Wild] Tablet 1 tab PO DAILY RF: 0 thiamine HCl (vitamin B1) [Vitamin B-1] 100 mg Tablet 100 mg PO DAILY RF: 0 folic acid 1 mg Tablet 1 mg PO DAILY RF: 0 montelukast [Singulair] 10 mg Tablet 10 mg PO DAILY RF: 0 isosorbide mononitrate 60 mg tablet extended release 24 hr 90 mg PO DAILY RF: 0 Changed amlodipine 5 mg tablet 5 mg PO DAILY Qty: 30 RF: 0 furosemide 40 mg tablet 40 mg PO BID 30 Days Qty: 30 RF: 0 pantoprazole 40 mg tablet,delayed release (DR/EC) 40 mg PO BIDWMEAL 30 Days Qty: 30 RF: 0 Discontinued hydralazine 50 mg tablet 50 mg PO DAILY RF: 0 clindamycin HCl 300 mg capsule 300 mg PO TID RF: 0 doxycycline hyclate 100 mg tablet 100 mg PO BID RF: 0 Discharge Orders: Discharge Order (Routine); Ordered 07/21/20 Ordered By: Mamadou Tobin Other Ambulatory Orders: DME: Miscellaneous (Order) Location: None Selected Ordered By: London Esposito Referrals: [facility] [Outside] ([facility] will be calling you to set up a good time to admit you to their services. If you have any questions or concerns please call them at [phone].) Chioma Quezada [Primary Care Provider] - 4-7 days Laine Bansal DO [Physician] - 7-10 days (History of possible pemphigoid. On oral chronic prednisone 5 mg for more than 5 years. Multiple superficial skin lesions on both arms.) Discharge Diet: Cardiac Discharge Activity: Resume usual activity Patient Instructions: Opioid Safety Discharge Attestations Time Spent in Discharge Care*: greater than 30 min Specific Discharge Activities: educating patient, discussing with pcp/other providers, discussing with case management rn/social workers/dc planners, documenting/other paperwork and evaluating patient/reviewing data Status at Discharge: Cognitive status at discharge: cognitively intact, Behavioral status at discharge: cooperative, Functional status at discharge: uses cane/walker Overall status at discharge: patient is back to baseline Quality Metrics Clinical Quality Measures During this hospital stay, did patient experience: None Coding Level of Care Code Acute Chg FW DC note Exam Comprehensive Diagnoses Bacteremia due to Klebsiella pneumoniae R78.81; B96.1 Acute on chronic diastolic CHF (congestive heart failure) I50.33 Candidiasis B37.9
[2020-07-21] MEDS: acetaminophen 325 mg Tablet 650 MG PO (11:49)
[2020-07-21] MEDS: cefTRIAXone 1,000 MG in sodium chloride 0.9% (plus) 50 ML 100 MG IV (11:50)
[2020-07-21] MEDS: ondansetron 2 mg/ML SDV 2 mL 4 MG IVP (11:57)
--- NOTE | 2020-07-21 14:12 | PC.SOCIAL ---
*IMM UPDATE* Gave patient IMM update. Provided copy of pg 2. Verbalized understanding. 07/21/20 @ 0929 Initialed, dated, timed and placed in chart.
--- NOTE | 2020-07-21 20:59 | PC.NURSE ---
Patient left via [employer] ride in wheelchair. Patient is alert and oriented and pain free. Patient belonging with him. VSS.
== END 2020-07-21 21:02 | disposition skilled nursing facility (03) | DRG 291 ==
LOC: ER 18:22 → CSU 23:19
PROVIDERS: Internal Medicine; Admitting Provider Student in an Organized Health Care Education/Training Program; Emergency Provider Family Medicine; PCP Nurse Practitioner Family; Visit Provider Student in an Organized Health Care Education/Training Program
DX: I13.0 Hypertensive heart and chronic kidney disease with heart failure and stage 1 through stage 4 chronic kidney disease, or unspecified chronic kidney disease (principal); I50.33 Acute on chronic diastolic (congestive) heart failure; R78.81 Bacteremia; E87.1 Hypo-osmolality and hyponatremia; L12.9 Pemphigoid, unspecified; I48.20 Chronic atrial fibrillation, unspecified; N18.30 Chronic kidney disease, stage 3 unspecified; I25.118 Atherosclerotic heart disease of native coronary artery with other forms of angina pectoris; J44.9 Chronic obstructive pulmonary disease, unspecified; F17.210 Nicotine dependence, cigarettes, uncomplicated; E78.5 Hyperlipidemia, unspecified; I73.9 Peripheral vascular disease, unspecified; K21.9 Gastro-esophageal reflux disease without esophagitis; F10.10 Alcohol abuse, uncomplicated; I95.9 Hypotension, unspecified; L89.619 Pressure ulcer of right heel, unspecified stage; B96.1 Klebsiella pneumoniae [K. pneumoniae] as the cause of diseases classified elsewhere; K52.9 Noninfective gastroenteritis and colitis, unspecified; B37.2 Candidiasis of skin and nail; N40.1 Benign prostatic hyperplasia with lower urinary tract symptoms; R39.198 Other difficulties with micturition; Z79.02 Long term (current) use of antithrombotics/antiplatelets; Z95.1 Presence of aortocoronary bypass graft; Z89.511 Acquired absence of right leg below knee; Z89.432 Acquired absence of left foot; Z82.49 Family history of ischemic heart disease and other diseases of the circulatory system; Z79.52 Long term (current) use of systemic steroids
CPT/HCPCS: 36415; 36416; 36569; 71045; 73600; 73620; 73700; 74177; 80048; 80053; 80202; 80306; 80307; 81003; 82274; 82550; 82962; 83540; 83550; 83605; 83630; 83690; 83880; 84145; 84443; 84484; 85025; 86705; 86706; 86709; 86803; 87040; 87077; 87186; 87205; 87340; 87493; 87506; 87641; 87806; 93005; 93306; 94640; 96372; 97110; 97116; 97161; 97530; C1751; G0378; J0692; J0696; J1100; J1650; J1940; J2405; J3370; J7512; L4361; Q9967

== ENCOUNTER 2020-11-15 08:58 | Emergency (ER) | payer MEDICARE, MEDICAID, SELFPAY ==
[2020-11-15 09:08] VITALS: BP 172/92; PULSE 64; RESP 15; TEMP 36.7; O2SAT 98; BMI 33.3
--- NOTE | 2020-11-15 09:28 | USCV_ITS ---
Unique Rudolph Age: 70 Gender: M : 1950 Exam Date: 11/15/2020 09:51 Ordering Phys: Malik Byrd DO Technologist: Elvia Pritchard [place] [facility] [place]: [place]WELLING HISTORY: Lower extremity swelling. PROCEDURES: Venous duplex imaging was performed in only the left lower extremity. The following venous structures were evaluated: common femoral vein, profunda vein, proximal portion of the greater saphenous vein, superficial femoral vein, and the popliteal vein. In addition, the posterior tibial and peroneal trunk were evaluated. FINDINGS: There is thrombus present in the Left CFV,profunda, throughout the femoral vein, popliteal, and peroneals. The Left GSV and posterior tibials appear free of thrombus at this time. There is subcutaneous left lower extremity edema noted. CONCLUSIONS Acute left lower extremity deep venous thrombosis. Dr. Felipa Witt DO (Electronically Signed) Final Date: 15 November 2020 10:12 S
--- NOTE | 2020-11-15 09:38 | ED_ITS ---
HPI - Wound/Laceration General: Chief Complaint: Wound/Laceration Stated Complaint: LEFT LEG PAIN Time Seen by Provider: 11/15/20 09:03 History of Present Illness: HPI narrative: 62-year-old male presents emergency room with complaint of left leg swelling and edema going on for several weeks he has seen wound care in the past he has been treating it he has an ulceration on the mid lower leg on the left medially. Right leg below the knee amputation done previously. Has noticed redness erythema induration is spreading proximally. Reports exquisite tenderness to the touch even light touch on exam today. Onset (ago): day(s) Extremity Location: Right: lower leg Place: home Associated symptoms: Reports pain; Denies chills, fever(s), foreign body sensation, inability to move, nausea, numbness, syncope or vomiting Treatments prior to arrival: bandage Review of Systems Const: Denies: fever(s) or chills ENMT: Denies: throat pain, ear or mastoid pain, nasal discharge or nasal congestion Card: Denies: syncope Resp: Denies: dyspnea, productive cough or non-productive cough GI: Denies: nausea or vomiting : Denies: flank pain, dysuria, urinary frequency or urinary urgency Skin/Breast: Denies: rash or pruritus PFSH ED PFSH: Medical History Alcohol abuse Alcohol abuse ASHD (arteriosclerotic heart disease) Atherosclerotic heart disease of [place] coronary artery with other forms of angina pectoris Benign essential hypertension with target blood pressure below 140/90 Bradycardia Chronic episodic atrial fibrillation Chronic hyponatremia CKD (chronic kidney disease) stage 3, GFR 30-59 ml/min Congestive heart failure COPD (chronic obstructive pulmonary disease) Fluid overload GERD (gastroesophageal reflux disease) Hyperlipidemia Hyponatremia Microcytic anemia NSTEMI (non-ST elevated myocardial infarction) Pemphigoid Chronically on prednisone 5 mg daily. Has a history of skin peeling with foul smell for many years. Follows up with dermatology. Peripheral vascular disease Tobacco abuse Surgical History S/P CABG (coronary artery bypass graft) S/P cardiac catheterization S/P tonsillectomy Status post below knee amputation of right lower extremity Family History Mother Hypertension CAD (coronary artery disease) Social History Smoking and tobacco status: current every day smoker cigarettes Packs smoked per day: 2 Alcohol intake: current Alcohol intake frequency: 3 or more drinks per day Al cohol type: beer Desire information about alcohol rehabilitation?: No Physical Exam Const: COMMON NORMALS: no acute distress GENERAL APPEARANCE: cooperative and comfortable ORIENTATION/CONSCIOUSNESS: Yes awake, Yes oriented to person, Yes oriented to place and Yes oriented to time HENMT: COMMON NORMALS: normocephalic, atraumatic and hearing grossly normal bilaterally HEAD & SCALP: normocephalic and atraumatic Neck/C-Spine: COMMON NORMALS: no JVD Resp: COMMON NORMALS: normal respiratory effort, No retractions, No use of accessory muscles and clear to auscultation bilaterally AUSCULTATION: clear to auscultation bilaterally Cardio: COMMON NORMALS: no JVD, regular rate, regular rhythm and No murmurs present (Cardio) RATE: regular rate RHYTHM: regular rhythm GI: COMMON NORMALS: Soft to palpation and No hepatosplenomegaly present AUSCULTATION: Yes normoactive bowel sounds PALPATION: Yes Soft to palpation, No Tenderness to palpation present (GI), No Guarding due to palpation present (GI) and Yes No hepatosplenomegaly present Extremity: NARRATIVE EXTREMITY EXAM: 2+ edema of the left leg with mild erythema laterally there is SilvaSorb under ulcer that is chronic with a mucousy base. Is exquisitely tender to the touch no induration. Neuro: SENSORIUM/ORIENTATION: Yes oriented to person, Yes oriented to place and Yes oriented to time Skin: COMMON NORMALS: no rashes or lesions noted GENERAL SKIN EXAM: no rashes or lesions noted Course Vital Signs: Vital signs: Vital Signs Temperature 98.0 F 11/15/20 09:08 Pulse Rate 71 11/15/20 12:31 Respiratory Rate 18 11/15/20 12:31 Blood Pressure 172/92 11/15/20 12:31 Pulse Oximetry 95 11/15/20 12:31 MDM - Wound/Laceration MDM Narrative: Medical decision making narrative: Labs and imaging reviewed with the patient and on the chart. White counts normal ultrasound shows DVT. Given Lovenox and will start him on Eliquis. Him also concerned him on doxycycline does appear to have a mild cellulitis we will have him follow-up with the wound care clinic later this week return if has further problems. Advised patient to watch her shortness of breath. He does not have any tachycardia or hypoxia at this time. Lab Data: Labs: Lab Results 11/15/20 11/15/20 11/15/20 Range/Units 10:15 10:15 10:15 WBC 8.3 (4.0-10.0) 10^3/ uL RBC 4.42 (4.1-5.3) 10^6/u L Hgb 12.8 (11.7-16.6) g/dL Hct 38.0 L (42.0-52.0) % MCV 86.0 (80-94) fl MCH 29.0 (28.0-34.0) pg MCHC 33.7 (30.0-36.0) g/dL RDW 19.4 H (12.1-15.1) % Plt Count 251 (130-400) 10^3/c mm MPV 8.7 (7.4-10.4) fL Neut % (Auto) 83.1 % Lymph % (Auto) 13.1 % [place] % (Auto) 3.4 % Eos % (Auto) 0.0 % Baso % (Auto) 0.2 % Neut # (Auto) 6.91 (1.8-7.7) 10^3/u L Lymph # (Auto) 1.1 (0.8-4.8) 10^3/u L [place] # (Auto) 0.3 (0.2-0.9) 10^3/u L Eos # (Auto) 0.0 (0.0-0.8) 10^3/u L Baso # (Auto) 0.0 (0.0-0.1) 10^3/u L Nucleated RBC % (a uto) 0 % Nucleated RBCs # 0.0 /100WBC Sodium 130 L (136-145) mmol/L Potassium 3.8 (3.5-5.1) mmol/L Chloride 93 L (98-107) mmol/L Carbon Dioxide 26 (22-29) mmol/L Anion Gap 14.8 (5-19) BUN 11 (8-23) mg/dL Creatinine 0.8 (0.7-1.2) mg/dL GFR Calculation 96.1 (90-130) mL/min Glucose 92 (65-115) mg/dL Calculated Osmolal ity 269 L (285-295) mOsm/k g Lactic Acid 1.1 (0.5-2.2) mmol/L Calcium 8.2 L (8.5-10.5) mg/dL Total Bilirubin 0.3 (0.15-1.2) mg/dL AST 23 (0-40) U/L ALT 13 (0-41) U/L Alkaline Phosphata se 100 (40-130) IU/L Total Protein 6.4 L (6.6-8.7) g/dL Albumin 3.5 (3.5-5.2) g/dL Globulin 2.9 (1.3-4.6) g/dL Urine Color (Yellow) Urine Appearance (CLEAR) Urine pH (5-7) Ur Specific Gravit y (1.005-1.030) Urine Protein (Negative) Urine Glucose (UA) (Normal) Urine Ketones (Negative) Urine Blood (Negative) Urine Nitrate (Negative) Urine Bilirubin (Negative) Urine Urobilinogen (Negative) mg/dL Ur Leukocyte Ольга ase (Negative) 11/15/20 Range/Units 10:15 WBC (4.0-10.0) 10^3/ uL RBC (4.1-5.3) 10^6/u L Hgb (11.7-16.6) g/dL Hct (42.0-52.0) % MCV (80-94) fl MCH (28.0-34.0) pg MCHC (30.0-36.0) g/dL RDW (12.1-15.1) % Plt Count (130-400) 10^3/c mm MPV (7.4-10.4) fL Neut % (Auto) % Lymph % (Auto) % [place] % (Auto) % Eos % (Auto) % Baso % (Auto) % Neut # (Auto) (1.8-7.7) 10^3/u L Lymph # (Auto) (0.8-4.8) 10^3/u L [place] # (Auto) (0.2-0.9) 10^3/u L Eos # (Auto) (0.0-0.8) 10^3/u L Baso # (Auto) (0.0-0.1) 10^3/u L Nucleated RBC % (a uto) % Nucleated RBCs # /100WBC Sodium (136-145) mmol/L Potassium (3.5-5.1) mmol/L Chloride (98-107) mmol/L Carbon Dioxide (22-29) mmol/L Anion Gap (5-19) BUN (8-23) mg/dL Creatinine (0.7-1.2) mg/dL GFR Calculation (90-130) mL/min Glucose (65-115) mg/dL Calculated Osmolal ity (285-295) mOsm/k g Lactic Acid (0.5-2.2) mmol/L Calcium (8.5-10.5) mg/dL Total Bilirubin (0.15-1.2) mg/dL AST (0-40) U/L ALT (0-41) U/L Alkaline Phosphata se (40-130) IU/L Total Protein (6.6-8.7) g/dL Albumin (3.5-5.2) g/dL Globulin (1.3-4.6) g/dL Urine Color Straw (Yellow) Urine Appearance Clear (CLEAR) Urine pH 7 (5-7) Ur Specific Gravit y 1.000 L (1.005-1.030) Urine Protein Neg (Negative) Urine Glucose (UA) Norm (Normal) Urine Ketones Negative (Negative) Urine Blood Neg (Negative) Urine Nitrate Negative (Negative) Urine Bilirubin Neg (Negative) Urine Urobilinogen Norm (Negative) mg/dL Ur Leukocyte Ольга ase Negative (Negative) Discharge Plan Discharge Patient Disposition: Home Clinical Impression: DVT (deep venous thrombosis), Cellulitis and abscess of left leg Condition: Stable Prescriptions: New [place] DVT-PE Treat 30D Start 5 mg (74 tabs) tablets,dose pack See Rx Instructions .ROUTE .COMPLEX Qty: 74 RF: 0 doxycycline hyclate 100 mg capsule 100 mg PO BID 10 Days Qty: 20 RF: 0 No Action nitroglycerin [Nitrostat] 0.4 mg tablet, sublingual 0.4 mg SUBLINGUAL Q5M PRN (Reason: Chest Pain) RF: 0 magnesium oxide 420 mg tablet 400 mg PO DAILY RF: 0 atorvastatin 40 mg tablet 40 mg PO DAILY 90 Days Qty: 90 RF: 2 Coreg 3.125 mg tablet 3.125 mg PO BID 90 Days Qty: 180 RF: 2 losartan 100 mg tablet 100 mg PO DAILY 90 Days Qty: 90 RF: 2 potassium chloride [Klor-Con 10] 10 mEq tablet extended release 10 meq PO DAILY Qty: 90 RF: 2 Pacerone 200 mg tablet 200 mg PO DAILY 90 Days Qty: 90 RF: 2 prednisone 5 mg tablet 5 mg PO DAILY RF: 0 clobetasol 0.05 % cream 1 applic TOPICAL BID PRN (Reason: unknown) RF: 0 clopidogrel 75 mg tablet 75 mg PO DAILY RF: 0 multivitamin [Daily-Wild] Tablet 1 tab PO DAILY RF: 0 thiamine HCl (vitamin B1) [Vitamin B-1] 100 mg Tablet 100 mg PO DAILY RF: 0 folic acid 1 mg Tablet 1 mg PO DAILY RF: 0 montelukast [Singulair] 10 mg Tablet 10 mg PO DAILY RF: 0 isosorbide mononitrate 60 mg tablet extended release 24 hr 90 mg PO DAILY RF: 0 furosemide 40 mg tablet 40 mg PO BID 30 Days Qty: 30 RF: 0 amlodipine 5 mg tablet 5 mg PO DAILY Qty: 30 RF: 0 pantoprazole 40 mg tablet,delayed release (DR/EC) 40 mg PO BIDWMEAL 30 Days Qty: 30 RF: 0 Discharge Orders: Discharge ED (Routine); Ordered 11/15/20 Ordered By: Malik Byrd Referrals: Chioma Quezada [Primary Care Provider] - Discharge Diet: Usual diet Discharge Activity: Limit activity as instructed Patient Instructions: Opioid Safety Activity Restrictions/Additional Instructions: Start antibiotics and anticoagulants immediately. Follow-up with your primary care doctor within the week return to ER if you have further problems. Coding Level of Care Code ED Geology Professor for Martina Lara
[2020-11-15 10:27] LABS: Basophils % 0.2 %; Hemoglobin 12.8 g/dL (11.7-16.6); Lymphocytes # 1.1 10^3/uL (0.8-4.8); Lymphocytes % 13.1 %; Mean Corpuscular HGB Conc 33.7 g/dL (30.0-36.0); Mean Platelet Volume 8.7 fL (7.4-10.4); Monocytes # 0.3 10^3/uL (0.2-0.9); Monocytes % 3.4 %; Neutrophils # 6.91 10^3/uL (1.8-7.7); Neutrophils % 83.1 %; Nucleated Red Blood Cells % 0 %; Platelet Count 251 10^3/cmm (130-400); Red Blood Count 4.42 10^6/uL (4.1-5.3); Red Cell Distribution Width 19.4 % (12.1-15.1); White Blood Count 8.3 10^3/uL (4.0-10.0)
[2020-11-15 10:39] LABS: Add Urine Microscopic? NO; Charge for UA Resulting for Rev
[2020-11-15 10:46] LABS: Albumin Level 3.5 g/dL (3.5-5.2); Alkaline Phosphatase 100 IU/L (40-130); Blood Urea Nitrogen 11 mg/dL (8-23); Calcium 8.2 mg/dL (8.5-10.5); Carbon Dioxide 26 mmol/L (22-29); Chloride 93 mmol/L (98-107); Globulin 2.9 g/dL (1.3-4.6); Glomerular Filtration Rate 96.1 mL/min (90-130); Glucose 92 mg/dL (65-115); Osmolality Calculated 269 mOsm/kg (285-295); Sodium 130 mmol/L (136-145); Total Bilirubin 0.3 mg/dL (0.15-1.2); Total Protein 6.4 g/dL (6.6-8.7)
[2020-11-15 10:48] LABS: Lactic Sepsis W/Reflex 1.1 mmol/L (0.5-2.2)
[2020-11-15 10:53] LABS: Anion Gap 14.8 (5-19); Potassium 3.8 mmol/L (3.5-5.1)
[2020-11-15 10:54] LABS: Alanine Aminotransferase 13 U/L (0-41); Aspartate Amino Transferase 23 U/L (0-40)
[2020-11-15 10:56] LABS: Bilirubin Urine Neg (Negative); Blood Urine Neg (Negative); Glucose Urine UA Norm (Normal); Ketones Urine Negative (Negative); Leukocyte Esterase Urine Negative (Negative); Nitrate Urine Negative (Negative); Protein Urine Neg (Negative); Urine Appearance Clear (CLEAR); Urine Color Straw (Yellow); Urobilinogen Urine Norm (Negative); pH Urine 7 (5-7)
[2020-11-15 12:31] VITALS: BP 172/92; PULSE 71; RESP 18; O2SAT 95
== END 2020-11-15 12:27 | disposition home or self-care (01) ==
PROVIDERS: Emergency Provider Family Medicine; PCP Nurse Practitioner Family
DX: I82.402 Acute embolism and thrombosis of unspecified deep veins of left lower extremity (principal); L03.116 Cellulitis of left lower limb; L02.416 Cutaneous abscess of left lower limb; Z79.02 Long term (current) use of antithrombotics/antiplatelets; N18.30 Chronic kidney disease, stage 3 unspecified; I50.9 Heart failure, unspecified; J44.9 Chronic obstructive pulmonary disease, unspecified; E78.5 Hyperlipidemia, unspecified; I25.2 Old myocardial infarction; Z95.1 Presence of aortocoronary bypass graft; Z89.511 Acquired absence of right leg below knee; F17.210 Nicotine dependence, cigarettes, uncomplicated
CPT/HCPCS: 80053; 81003; 83605; 85025; 87040; 93971; 99282